=== PATIENT | male | born 2000 | race African-American/Black ===

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

== ENCOUNTER 2022-10-05 21:05 | Emergency (ER) | payer OTHER ==
--- OUTSIDE RECORDS SUMMARY | 2022-10-05 21:13 | XMS REPORT | Continuity of Care Document ---
:2000 Author Organization [facility] t Address [address] [facility] [place] [address] Care Team Providers Name Role Phone Fadi Ang MD Primary Care Physician Nils Tucker Attending Clinician Unknown, Attending Attending Clinician Unavailable NILS FIGUEROA Attending Clinician Unavailable Pob, [facility] Attending Clinician Unavailable Fadi Ang MD Attending Clinician FADI ANG Attending Clinician Unavailable Doctor Unassigned, [place] Attending Clinician Unavailable Amalia Goode MD Attending Clinician Kina Pineda RN Attending Clinician Unavailable Only, [facility] Attending Clinician Unavailable Emilia Manley Attending Clinician EMILIA ANTON Attending Clinician Unavailable Provider, [facility] Attending Clinician Unavailable Zahira Anne Attending Clinician ZAHIRA ROSSI Attending Clinician Unavailable Sammy Whitman MD Attending Clinician SAMMY WHITMAN Attending Clinician Unavailable SAMMY WHITMAN Attending Clinician Unavailable UNKNOWN, ATTENDING Attending Clinician Unavailable EVA MCCLAIN Attending Clinician Unavailable Sandra Ovalles MD Attending Clinician Ronal ODEstefany Attending Clinician Jayden Valles Attending Clinician Elyse Dean Attending Clinician Kami OWENS, Luann Attending Clinician John Rowell MD Attending Clinician FADI ANG Admitting Clinician Unavailable Payers Payer Name Policy Type Policy Number Effective Date Expiration Date [place] [facility] [id number] 2014 [facility] MEDICAID 00:00:00 [place] [facility] [id number] 2020 HEALTH 00:00:00 Problems Condition Condition Condition Status Onset Resolution Last Treating Co mments Source Name Details Category Date Date Treatment Clinician Date No known No known Disease Unive rs active active ity of problems problems [facility] Allergies, Adverse Reactions, Alerts Allergy Allergy Status Severity Reaction(s) Onset Inactive Treating Comm ents Source Name Type Date Date Clinician NO KNOWN Drug Active Univers ALLERGIE Class ity of S [facility] Social History Social Habit Start Date Stop Date Quantity Comments Source Exposure to 2022-07-27 2022-08-06 Not sure [facility]-CoV-2 00:00:00 16:34:00 [facility] (event) [place] Alcohol intake 2022-01-26 2022-01-26 [facility] of 00:00:00 00:00:00 non-drinker [facility] (finding) [place] Tobacco use and 2022-01-26 2022-01-26 Smokeless tobacco Un iversity of exposure 00:00:00 00:00:00 non-user [facility] Sex Assigned At [birth year] Universit y of 00:00:00 00:00:00 [facility] Smoking Status Start Date Stop Date Source Never smoked tobacco [facility] Medications Ordered Filled Start Stop Current Ordering Indication Dosage Frequency Signature Comments Components Source Medication Medication Date Date Medication? Clinician (SIG) Name Name ondansetron 2022- Yes [id number] 4mg Take 1 [facility] 4 mg 3-30 04-05 tablet by ity of disintegrat [place] :[place] every 8 Medica l (eight) Branch hours as needed for Nausea and Vomiting (N/V) for up to 5 days. ondansetron 2022- Yes [id number] 4mg Take 1 Univers 4 mg 3-30 04-05 tablet by ity of disintegrat 00:00: 04:[place] :00 every 8 Medica l (eight) Branch hours as needed for Nausea and Vomiting (N/V) for up to 5 days. bromphenira 2021-0 Yes [id number] 5mL Take 5 mL Univers mine-pseudo 9-19 by mouth 4 it y of ephedrine-D 00:00: (four[place] (BROMFED 00 times Medical DM) 2-30-10 daily as Bran ch mg/5 mL needed for syrup Congestion /Allergies . ondansetron 2021-0 Yes [id number] 4mg Take 1 Univers 4 mg 9-19 tablet by ity of disintegrat 00:00: mouth [place] ing tablet 00 every 8 Medica l (eight) Branch hours as needed for Nausea and Vomiting (N/V). albuterol 2021-0 Yes [id number] 2{puff} Inhale 2 Univers 90 9-19 Puffs ity of mcg/actuati 00:00: every 6 [place] as on inhaler 00 (six) Medical hours as Branch needed for Shortness of Breath. bromphenira 2021-0 Yes [id number] 5mL Take 5 mL [facility] mine-pseudo 9-19 by mouth 4 it y of ephedrine-D 00:00: (four[place] (BROMFED 00 times Medical DM) 2-30-10 daily as Bran ch mg/5 mL needed for syrup Congestion /Allergies . ondansetron 2021-0 Yes [id number] 4mg Take 1 Univers 4 mg 9-19 tablet by ity of disintegrat 00:00: mouth [place] ing tablet 00 every 8 Medica l (eight) Branch hours as needed for Nausea and Vomiting (N/V). albuterol 2021-0 Yes [id number] 2{puff} Inhale 2 Univers 90 9-19 Puffs ity of mcg/actuati 00:00: every 6 [place] as on inhaler 00 (six) Medical hours as Branch needed for Shortness of Breath. bromphenira 2021-0 Yes [id number] 5mL Take 5 mL Univers mine-pseudo 9-19 by mouth 4 it y of ephedrine-D 00:00: (four[place] (BROMFED 00 times Medical DM) 2-30-10 daily as Bran ch mg/5 mL needed for syrup Congestion /Allergies . ondansetron 2021-0 Yes [id number] 4mg Take 1 Univers 4 mg 9-19 tablet by ity of disintegrat 00:00: mouth [place] ing tablet 00 every 8 Medica l (eight) Branch hours as needed for Nausea and Vomiting (N/V). albuterol 2021-0 Yes [id number] 2{puff} Inhale 2 Univers 90 9-19 Puffs ity of mcg/actuati 00:00: every 6 [place] as on inhaler 00 (six) Medical hours as Branch needed for Shortness of Breath. bromphenira 2021-0 Yes [id number] 5mL Take 5 mL [facility] mine-pseudo 9-19 by mouth 4 it y of ephedrine-D 00:00: (four[place] (BROMFED 00 times Medical DM) 2-30-10 daily as Bran ch mg/5 mL needed for syrup Congestion /Allergies . ondansetron 0 Yes [id number] 4mg Take 1 Univers 4 mg 9-19 tablet by ity of disintegrat 00:00: mouth [place] ing tablet 00 every 8 Medica l (eight) Branch hours as needed for Nausea and Vomiting (N/V). albuterol 0 Yes [id number] 2{puff} Inhale 2 Univers 90 9-19 Puffs ity of mcg/actuati 00:00: every 6 [place] as on inhaler 00 (six) Medical hours as Branch needed for Shortness of Breath. bromphenira 0 Yes [id number] 5mL Take 5 mL Univers mine-pseudo 9-19 by mouth 4 it y of ephedrine-D 00:00: (four[place] (BROMFED 00 times Medical DM) 2-30-10 daily as Bran ch mg/5 mL needed for syrup Congestion /Allergies . ondansetron 2021-0 Yes [id number] 4mg Take 1 Univers 4 mg 9-19 tablet by ity of disintegrat 00:00: mouth [place] ing tablet 00 every 8 Medica l (eight) Branch hours as needed for Nausea and Vomiting (N/V). albuterol 2021-0 Yes [id number] 2{puff} Inhale 2 Univers 90 9-19 Puffs ity of mcg/actuati 00:00: every 6 [place] as on inhaler 00 (six) Medical hours as Branch needed for Shortness of Breath. bromphenira 2021-0 Yes [id number] 5mL Take 5 mL Univers mine-pseudo 9-19 by mouth 4 it y of ephedrine-D 00:00: (four[place] (BROMFED 00 times Medical DM) 2-30-10 daily as Bran ch mg/5 mL needed for syrup Congestion /Allergies . ondansetron 2021-0 Yes [id number] 4mg Take 1 Univers 4 mg 9-19 tablet by ity of disintegrat 00:00: mouth [place] ing tablet 00 every 8 Medica l (eight) Branch hours as needed for Nausea and Vomiting (N/V). albuterol 2021-0 Yes [id number] 2{puff} Inhale 2 Univers 90 9-19 Puffs ity of mcg/actuati 00:00: every 6 [place] as on inhaler 00 (six) Medical hours as Branch needed for Shortness of Breath. bromphenira 2021-0 Yes [id number] 5mL Take 5 mL Univers mine-pseudo 9-19 by mouth 4 it y of ephedrine-D 00:00: (four[place] (BROMFED 00 times Medical DM) 2-30-10 daily as Bran ch mg/5 mL needed for syrup Congestion /Allergies . ondansetron 0 Yes [id number] 4mg Take 1 Univers 4 mg 9-19 tablet by ity of disintegrat 00:00: mouth [place] ing tablet 00 every 8 Medica l (eight) Branch hours as needed for Nausea and Vomiting (N/V). albuterol 2021-0 Yes [id number] 2{puff} Inhale 2 Univers 90 9-19 Puffs ity of mcg/actuati 00:00: every 6 [place] as on inhaler 00 (six) Medical hours as Branch needed for Shortness of Breath. amoxicillin 2021-0 202- No [id number] 1000mg Take 2 Univers 500 mg 5-23 06-03 tablets by ity of tablet 00:00: 04:59 mouth [place] 00 :00 daily for Medical 10 days. Branch FLUoxetine 2020-0 Yes 20mg Take 20 mg U nivers 20 mg 9-27 by mouth. ity of capsule 00:00: [place] 00 Medical Branch FLUoxetine 2020-0 Yes 20mg Take 20 mg U nivers 20 mg 9-27 by mouth. ity of capsule 00:00: [facility] FLUoxetine 2021-0 Yes 20mg Take 20 mg U nivers 20 mg 9-27 by mouth. ity of capsule 00:00: [facility] FLUoxetine 202-0 Yes 20mg Take 20 mg U nivers 20 mg 9-27 by mouth. ity of capsule 00:00: [facility] FLUoxetine 202-0 Yes 20mg Take 20 mg U nivers 20 mg 9-27 by mouth. ity of capsule 00:00: [facility] FLUoxetine 202-0 Yes 20mg Take 20 mg U nivers 20 mg 9-27 by mouth. ity of capsule 00:00: [facility] FLUoxetine 202-0 Yes 20mg Take 20 mg U nivers 20 mg 9-27 by mouth. ity of capsule 00:00: [facility] FLUoxetine 202-0 Yes 20mg Take 20 mg U nivers 20 mg 9-27 by mouth. ity of capsule 00:00: [facility] FLUoxetine 202-0 Yes 20mg Take 20 mg U nivers 20 mg 9-27 by mouth. ity of capsule 00:00: [facility] FLUoxetine 202-0 Yes 20mg Take 20 mg U nivers 20 mg 9-27 by mouth. ity of capsule 00:00: [facility] FLUoxetine 202-0 Yes 20mg Take 20 mg U nivers 20 mg 9-27 by mouth. ity of capsule 00:00: [facility] FLUoxetine 202-0 Yes 20mg Take 20 mg U nivers 20 mg 9-27 by mouth. ity of capsule 00:00: [facility] FLUoxetine 2021-0 Yes 20mg Take 20 mg U nivers 20 mg 9-27 by mouth. ity of capsule 00:00: [facility] FLUoxetine 2021-0 Yes 20mg Take 20 mg U nivers 20 mg 9-27 by mouth. ity of capsule 00:00: [address] FLUoxetine 2021-0 Yes 20mg Take 20 mg U nivers 20 mg 9-27 by mouth. ity of capsule 00:00: [address] FLUoxetine 2021-0 Yes 20mg Take 20 mg U nivers 20 mg 9-27 by mouth. ity of capsule 00:00: [place] 00 Medical Branch FLUoxetine 2020-0 Yes 20mg Take 20 mg U nivers 20 mg 9-27 by mouth. ity of capsule 00:00: Medical Branch FLUoxetine 2020-0 Yes 20mg Take 20 mg U nivers 20 mg 9-27 by mouth. ity of capsule 00:00: Medical Branch ondansetron 0 Yes [id number] 4mg Take 1 Univers 4 mg 8-22 tablet by ity of disintegrat 00:00: mouth [place] ing tablet 00 every 8 Medica l (eight) Branch hours as needed for Nausea and Vomiting (N/V). ondansetron Yes [id number] 4mg Take 1 Univers 4 mg 8-22 tablet by ity of disintegrat 00:00: mouth [place] ing tablet 00 every 8 Medica l (eight) Branch hours as needed for Nausea and Vomiting (N/V). ondansetron Yes [id number] 4mg Take 1 Univers 4 mg 8-22 tablet by ity of disintegrat 00:00: mouth [place] ing tablet 00 every 8 Medica l (eight) Branch hours as needed for Nausea and Vomiting (N/V). ondansetron 0 Yes [id number] 4mg Take 1 Univers 4 mg 8-22 tablet by ity of disintegrat 00:00: mouth [place] ing tablet 00 every 8 Medica l (eight) Branch hours as needed for Nausea and Vomiting (N/V). ondansetron 0 Yes [id number] 4mg Take 1 Univers 4 mg 8-22 tablet by ity of disintegrat 00:00: mouth [place] ing tablet 00 every 8 Medica l (eight) Branch hours as needed for Nausea and Vomiting (N/V). ondansetron Yes [id number] 4mg Take 1 Univers 4 mg 8-22 tablet by ity of disintegrat 00:00: mouth [place] ing tablet 00 every 8 Medica l (eight) Branch hours as needed for Nausea and Vomiting (N/V). ondansetron 2020-0 Yes [id number] 4mg Take 1 Univers 4 mg 8-22 tablet by ity of disintegrat 00:00: mouth [place] ing tablet 00 every 8 Medica l (eight) Branch hours as needed for Nausea and Vomiting (N/V). ondansetron 2020-0 Yes [id number] 4mg Take 1 Univers 4 mg 8-22 tablet by ity of disintegrat 00:00: mouth [place] ing tablet 00 every 8 Medica l (eight) Branch hours as needed for Nausea and Vomiting (N/V). ondansetron 2020-0 Yes [id number] 4mg Take 1 Univers 4 mg 8-22 tablet by ity of disintegrat 00:00: mouth [place] ing tablet 00 every 8 Medica l (eight) Branch hours as needed for Nausea and Vomiting (N/V). ondansetron 0 Yes [id number] 4mg Take 1 Univers 4 mg 8-22 tablet by ity of disintegrat 00:00: mouth [place] ing tablet 00 every 8 Medica l (eight) Branch hours as needed for Nausea and Vomiting (N/V). ondansetron 2020-0 Yes [id number] 4mg Take 1 Univers 4 mg 8-22 tablet by ity of disintegrat 00:00: mouth [place] ing tablet 00 every 8 Medica l (eight) Branch hours as needed for Nausea and Vomiting (N/V). ondansetron 0 Yes [id number] 4mg Take 1 Univers 4 mg 8-22 tablet by ity of disintegrat 00:00: mouth [place] ing tablet 00 every 8 Medica l (eight) Branch hours as needed for Nausea and Vomiting (N/V). ondansetron 0 Yes [id number] 4mg Take 1 Univers 4 mg 8-22 tablet by ity of disintegrat 00:00: mouth [place] ing tablet 00 every 8 Medica l (eight) Branch hours as needed for Nausea and Vomiting (N/V). ondansetron 2020-0 Yes [id number] 4mg Take 1 Univers 4 mg 8-22 tablet by ity of disintegrat 00:00: mouth [place] ing tablet 00 every 8 Medica l (eight) Branch hours as needed for Nausea and Vomiting (N/V). ondansetron 2020-0 Yes [id number] 4mg Take 1 Univers 4 mg 8-22 tablet by ity of disintegrat 00:00: mouth [place] ing tablet 00 every 8 Medica l (eight) Branch hours as needed for Nausea and Vomiting (N/V). ondansetron 2020-0 Yes [id number] 4mg Take 1 Univers 4 mg 8-22 tablet by ity of disintegrat 00:00: mouth [place] ing tablet 00 every 8 Medica l (eight) Branch hours as needed for Nausea and Vomiting (N/V). ondansetron 0 Yes [id number] 4mg Take 1 Univers 4 mg 8-22 tablet by ity of disintegrat 00:00: mouth [place] ing tablet 00 every 8 Medica l (eight) Branch hours as needed for Nausea and Vomiting (N/V). ondansetron 0 Yes [id number] 4mg Take 1 Univers 4 mg 8-22 tablet by ity of disintegrat 00:00: mouth [place] ing tablet 00 every 8 Medica l (eight) Branch hours as needed for Nausea and Vomiting (N/V). bromphenira Yes [id number] 5mL Take 5 mL Univers mine-pseudo 8-20 by mouth 4 it y of ephedrine-D 00:00: (four[place] (BROMFED 00 times Medical DM) 2-30-10 daily as Bran ch mg/5 mL needed for syrup Congestion /Allergies or Cough. budesonide- Yes [id number] 2{puff} Inhale 2 Univers formoteroL 8-20 Puffs 2 ity of 80-4.5 00:00: (two) [place] mcg/actuati 00 times Medical on inhaler daily. Branch bromphenira Yes [id number] 5mL Take 5 mL Univers mine-pseudo 8-20 by mouth 4 it y of ephedrine-D 00:00: (four) [place] (BROMFED 00 times Medical DM) 2-30-10 daily as Bran ch mg/5 mL needed for syrup Congestion /Allergies or Cough. budesonide- Yes [id number] 2{puff} Inhale 2 Univers formoteroL 8-20 Puffs 2 ity of 80-4.5 00:00: (two) [place] mcg/actuati 00 times Medical on inhaler daily. Branch bromphenira Yes [id number] 5mL Take 5 mL Univers mine-pseudo 8-20 by mouth 4 it y of ephedrine-D 00:00: (four) [place] (BROMFED 00 times Medical DM) 2-30-10 daily as Bran ch mg/5 mL needed for syrup Congestion /Allergies or Cough. budesonide- Yes [id number] 2{puff} Inhale 2 Univers formoteroL 8-20 Puffs 2 ity of 80-4.5 00:00: (two) [place] mcg/actuati 00 times Medical on inhaler daily. Branch bromphenira Yes [id number] 5mL Take 5 mL Univers mine-pseudo 8-20 by mouth 4 it y of ephedrine-D 00:00: (four) [place] (BROMFED 00 times Medical DM) 2-30-10 daily as Bran ch mg/5 mL needed for syrup Congestion /Allergies or Cough. budesonide- Yes [id number] 2{puff} Inhale 2 Univers formoteroL 8-20 Puffs 2 ity of 80-4.5 00:00: (two) [place] mcg/actuati 00 times Medical on inhaler daily. Branch bromphenira Yes [id number] 5mL Take 5 mL Univers mine-pseudo 8-20 by mouth 4 it y of ephedrine-D 00:00: (four) [place] (BROMFED 00 times Medical DM) 2-30-10 daily as Bran ch mg/5 mL needed for syrup Congestion /Allergies or Cough. budesonide- Yes [id number] 2{puff} Inhale 2 Univers formoteroL 8-20 Puffs 2 ity of 80-4.5 00:00: (two) [place] mcg/actuati 00 times Medical on inhaler daily. Branch bromphenira Yes [id number] 5mL Take 5 mL Univers mine-pseudo 8-20 by mouth 4 it y of ephedrine-D 00:00: (four) [place] (BROMFED 00 times Medical DM) 2-30-10 daily as Bran ch mg/5 mL needed for syrup Congestion /Allergies or Cough. budesonide- Yes [id number] 2{puff} Inhale 2 Univers formoteroL 8-20 Puffs 2 ity of 80-4.5 00:00: (two) [place] mcg/actuati 00 times Medical on inhaler daily. Branch bromphenira Yes [id number] 5mL Take 5 mL Univers mine-pseudo 8-20 by mouth 4 it y of ephedrine-D 00:00: (four) [place] (BROMFED 00 times Medical DM) 2-30-10 daily as Bran ch mg/5 mL needed for syrup Congestion /Allergies or Cough. budesonide- Yes [id number] 2{puff} Inhale 2 Univers formoteroL 8-20 Puffs 2 ity of 80-4.5 00:00: (two) [place] mcg/actuati 00 times Medical on inhaler daily. Branch bromphenira Yes [id number] 5mL Take 5 mL Univers mine-pseudo 8-20 by mouth 4 it y of ephedrine-D 00:00: (four) [place] (BROMFED 00 times Medical DM) 2-30-10 daily as Bran ch mg/5 mL needed for syrup Congestion /Allergies or Cough. budesonide- Yes [id number] 2{puff} Inhale 2 Univers formoteroL 8-20 Puffs 2 ity of 80-4.5 00:00: (two) [place] mcg/actuati 00 times Medical on inhaler daily. Branch bromphenira Yes [id number] 5mL Take 5 mL Univers mine-pseudo 8-20 by mouth 4 it y of ephedrine-D 00:00: (four) [place] (BROMFED 00 times Medical DM) 2-30-10 daily as Bran ch mg/5 mL needed for syrup Congestion /Allergies or Cough. budesonide- Yes [id number] 2{puff} Inhale 2 Univers formoteroL 8-20 Puffs 2 ity of 80-4.5 00:00: (two) [place] mcg/actuati 00 times Medical on inhaler daily. Branch budesonide- Yes [id number] 2{puff} Inhale 2 Univers formoteroL 8-20 Puffs 2 ity of 80-4.5 00:00: (two) [place] mcg/actuati 00 times Medical on inhaler daily. Branch budesonide- Yes [id number] 2{puff} Inhale 2 Univers formoteroL 8-20 Puffs 2 ity of 80-4.5 00:00: (two) [place] mcg/actuati 00 times Medical on inhaler daily. Branch budesonide- Yes [id number] 2{puff} Inhale 2 Univers formoteroL 8-20 Puffs 2 ity of 80-4.5 00:00: (two) [place] mcg/actuati 00 times Medical on inhaler daily. Branch budesonide- Yes [id number] 2{puff} Inhale 2 Univers formoteroL 8-20 Puffs 2 ity of 80-4.5 00:00: (two) [place] mcg/actuati 00 times Medical on inhaler daily. Branch budesonide- Yes [id number] 2{puff} Inhale 2 Univers formoteroL 8-20 Puffs 2 ity of 80-4.5 00:00: (two) [place] mcg/actuati 00 times Medical on inhaler daily. Branch budesonide- Yes [id number] 2{puff} Inhale 2 Univers formoteroL 8-20 Puffs 2 ity of 80-4.5 00:00: (two) [place] mcg/actuati 00 times Medical on inhaler daily. Branch budesonide- Yes [id number] 2{puff} Inhale 2 Univers formoteroL 8-20 Puffs 2 ity of 80-4.5 00:00: (two) [place] mcg/actuati 00 times Medical on inhaler daily. [place] bromphenira Yes [id number] 5mL Take 5 mL Univers mine-pseudo 8-20 by mouth 4 it y of ephedrine-D 00:00: (four) [place] (BROMFED 00 times Medical DM) 2-30-10 daily as Bran ch mg/5 mL needed for syrup Congestion /Allergies or Cough. budesonide- Yes [id number] 2{puff} Inhale 2 Univers formoteroL 8-20 Puffs 2 ity of 80-4.5 00:00: (two) [place] mcg/actuati 00 times Medical on inhaler daily. Branch bromphenira Yes [id number] 5mL Take 5 mL Univers mine-pseudo 8-20 by mouth 4 it y of ephedrine-D 00:00: (four) [place] (BROMFED 00 times Medical DM) 2-30-10 daily as Bran ch mg/5 mL needed for syrup Congestion /Allergies or Cough. budesonide- Yes [id number] 2{puff} Inhale 2 Univers formoteroL 8-20 Puffs 2 ity of 80-4.5 00:00: (two) [place] mcg/actuati 00 times Medical on inhaler daily. Branch bromphenira 2021- No [id number] 5mL Take 5 mL Univers mine-pseudo 8-20 09-19 by mouth 4 i ty of ephedrine-D 00:00: 00:00 (four) [place] as M (BROMFED 00 :00 times Medical DM) 2-30-10 daily as Bran ch mg/5 mL needed for syrup Congestion /Allergies or Cough. busPIRone Yes Univers 15 mg 5-06 ity of tablet 00:00: [facility] busPIRone Yes Univers 15 mg 5-06 ity of tablet 00:00: [address] busPIRone Yes Univers 15 mg 5-06 ity of tablet 00:00: [facility] busPIRone Yes Univers 15 mg 5-06 ity of tablet 00:00: [address] busPIRone Yes Univers 15 mg 5-06 ity of tablet 00:00: [facility] busPIRone Yes Univers 15 mg 5-06 ity of tablet 00:00: [address] busPIRone Yes Univers 15 mg 5-06 ity of tablet 00:00: [facility] busPIRone Yes Univers 15 mg 5-06 ity of tablet 00:00: [facility] busPIRone Yes Univers 15 mg 5-06 ity of tablet 00:00: [address] busPIRone Yes Univers 15 mg 5-06 ity of tablet 00:00: [facility] busPIRone Yes Univers 15 mg 5-06 ity of tablet 00:00: [address] busPIRone Yes Univers 15 mg 5-06 ity of tablet 00:00: [address] busPIRone Yes Univers 15 mg 5-06 ity of tablet 00:00: [place] 00 Medical Branch busPIRone 0 Yes Univers 15 mg 5-06 ity of tablet 00:00: Medical Branch busPIRone 0 Yes Univers 15 mg 5-06 ity of tablet 00:00: Medical Branch busPIRone 0 Yes Univers 15 mg 5-06 ity of tablet 00:00: Medical Branch busPIRone 0 Yes Univers 15 mg 5-06 ity of tablet 00:00: Medical Branch busPIRone 0 Yes Univers 15 mg 5-06 ity of tablet 00:00: Medical Branch fluoxetine Yes Take by Univ ers HCl 9-08 mouth. ity of (FLUOXETINE 15:04: [place] ORAL) Medical Branch fluoxetine Yes Take by Univ ers HCl 9-08 mouth. ity of (FLUOXETINE 15:04: [place] ORAL) [address] [place] [address] Branch fluoxetine Yes Take by Univ ers HCl 9-08 mouth. ity of (FLUOXETINE 15:04: [place] ORAL) Medical Branch fluoxetine Yes Take by Univ ers HCl 9-08 mouth. ity of (FLUOXETINE 15:04: [place] ORAL) [address] [place] [address] Branch fluoxetine Yes Take by Univ ers HCl 9-08 mouth. ity of (FLUOXETINE 15:04: [place] ORAL) Medical Branch fluoxetine Yes Take by Univ ers HCl 9-08 mouth. ity of (FLUOXETINE 15:04: [place] ORAL) [address] [place] [address] Branch fluoxetine Yes Take by Univ ers HCl 9-08 mouth. ity of (FLUOXETINE 15:04: [place] ORAL) Medical Branch fluoxetine 2018- Yes Take by Univ ers HCl 9-08 mouth. ity of (FLUOXETINE 15:04: [place] ORAL) Medical Branch fluoxetine 2018- Yes Take by Univ ers HCl 9-08 mouth. ity of (FLUOXETINE 15:04: [place] ORAL) Medical Branch fluoxetine 2019-0 Yes Take by Univ ers HCl 9-08 mouth. ity of (FLUOXETINE 15:04: [place] ORAL) [address] [place] [address] Branch fluoxetine 2018-0 Yes Take by Univ ers HCl 9-08 mouth. ity of (FLUOXETINE 15:04: [place] ORAL) Medical Branch fluoxetine 2018-0 Yes Take by Univ ers HCl 9-08 mouth. ity of (FLUOXETINE 15:04: [place] ORAL) Medical Branch fluoxetine 2019-0 Yes Take by Univ ers HCl 9-08 mouth. ity of (FLUOXETINE 15:04: [place] ORAL) 34 Medical Branch fluoxetine 2019-0 Yes Take by Univ ers HCl 9-08 mouth. ity of (FLUOXETINE 15:04: [place] ORAL) 34 Medical Branch fluoxetine 2018-0 Yes Take by Univ ers HCl 9-08 mouth. ity of (FLUOXETINE 15:04: [place] ORAL) 34 Medical Branch fluoxetine 2019-0 Yes Take by Univ ers HCl 9-08 mouth. ity of (FLUOXETINE 15:04: [place] ORAL) 34 Medical Branch fluoxetine 2018-0 Yes Take by Univ ers HCl 9-08 mouth. ity of (FLUOXETINE 15:04: [place] ORAL) 34 Medical Branch fluoxetine 2019-0 Yes Take by Univ ers HCl 9-08 mouth. ity of (FLUOXETINE 15:04: [place] ORAL) 34 Medical Branch hydrOXYzine Yes [id number] 1-2 tabs Univers 25 mg 9-08 Every ity of tablet 00:00: 3-6hr as [place] 00 needed for Medical nausea Branch dyspnea. hydrOXYzine Yes [id number] 1-2 tabs Univers 25 mg 9-08 Every ity of tablet 00:00: 3-6hr as [place] 00 needed for Medical nausea Branch dyspnea. hydrOXYzine Yes [id number] 1-2 tabs Univers 25 mg 9-08 Every ity of tablet 00:00: 3-6hr as [place] 00 needed for Medical nausea Branch dyspnea. hydrOXYzine Yes [id number] 1-2 tabs Univers 25 mg 9-08 Every ity of tablet 00:00: 3-6hr as [place] 00 needed for Medical nausea Branch dyspnea. hydrOXYzine Yes [id number] 1-2 tabs Univers 25 mg 9-08 Every ity of tablet 00:00: 3-6hr as [place] 00 needed for Medical nausea Branch dyspnea. hydrOXYzine Yes [id number] 1-2 tabs Univers 25 mg 9-08 Every ity of tablet 00:00: 3-6hr as [place] 00 needed for Medical nausea Branch dyspnea. hydrOXYzine Yes [id number] 1-2 tabs Univers 25 mg 9-08 Every ity of tablet 00:00: 3-6hr as [place] 00 needed for Medical nausea Branch dyspnea. hydrOXYzine Yes [id number] 1-2 tabs [facility] 25 mg 9-08 Every ity of tablet 00:00: 3-6hr as [place] 00 needed for Medical nausea Branch dyspnea. hydrOXYzine Yes [id number] 1-2 tabs [facility] 25 mg 9-08 Every ity of tablet 00:00: 3-6hr as [place] 00 needed for Medical nausea Branch dyspnea. hydrOXYzine Yes [id number] 1-2 tabs [facility] 25 mg 9-08 Every ity of tablet 00:00: 3-6hr as [place] 00 needed for Medical nausea Branch dyspnea. hydrOXYzine Yes [id number] 1-2 tabs [facility] 25 mg 9-08 Every ity of tablet 00:00: 3-6hr as [place] 00 needed for Medical nausea Branch dyspnea. hydrOXYzine 2021- No [id number] 1-2 tabs [facility] 25 mg 9-08 09-19 Every ity of tablet 00:00: 00:00 3-6hr as [place] 00 :00 needed for Medical nausea Branch dyspnea. OLANZapine Yes [id number] 5mg Take 1 U nivers ZYDIS 5 mg 7-13 tablet by ity of disintegrat 00:00: mouth [place] ing tablet 00 daily. Medical Branch OLANZapine Yes [id number] 5mg Take 1 U nivers ZYDIS 5 mg 7-13 tablet by ity of disintegrat 00:00: mouth [place] ing tablet 00 daily. Medical Branch OLANZapine 2018- Yes [id number] 5mg Take 1 U nivers ZYDIS 5 mg 7-13 tablet by ity of disintegrat 00:00: mouth [place] ing tablet 00 daily. [facility] Branch OLANZapine 2019- Yes [id number] 5mg Take 1 U nivers ZYDIS 5 mg 7-13 tablet by ity of disintegrat 00:00: mouth [place] ing tablet 00 daily. [facility] Branch OLANZapine 2019- Yes [id number] 5mg Take 1 U nivers ZYDIS 5 mg 7-13 tablet by ity of disintegrat 00:00: mouth [place] ing tablet 00 daily. [facility] Branch OLANZapine 2018- Yes [id number] 5mg Take 1 U nivers ZYDIS 5 mg 7-13 tablet by ity of disintegrat 00:00: mouth [place] ing tablet 00 daily. [facility] Branch OLANZapine 2019-0 Yes [id number] 5mg Take 1 U nivers ZYDIS 5 mg 7-13 tablet by ity of disintegrat 00:00: mouth [place] ing tablet 00 daily. [facility] OLANZapine 2019-0 Yes [id number] 5mg Take 1 U nivers ZYDIS 5 mg 7-13 tablet by ity of disintegrat 00:00: mouth [place] ing tablet 00 daily. [facility] Branch OLANZapine 2019-0 Yes [id number] 5mg Take 1 U nivers ZYDIS 5 mg 7-13 tablet by ity of disintegrat 00:00: mouth [place] ing tablet 00 daily. [facility] Branch OLANZapine 2019-0 Yes [id number] 5mg Take 1 U nivers ZYDIS 5 mg 7-13 tablet by ity of disintegrat 00:00: mouth [place] ing tablet 00 daily. [facility] Branch OLANZapine 2019-0 Yes [id number] 5mg Take 1 U nivers ZYDIS 5 mg 7-13 tablet by ity of disintegrat 00:00: mouth [place] ing tablet 00 daily. [facility] Branch OLANZapine 2019-0 Yes [id number] 5mg Take 1 U nivers ZYDIS 5 mg 7-13 tablet by ity of disintegrat 00:00: mouth [place] ing tablet 00 daily. [facility] Branch OLANZapine 2019-0 Yes [id number] 5mg Take 1 U nivers ZYDIS 5 mg 7-13 tablet by ity of disintegrat 00:00: mouth [place] ing tablet 00 daily. [facility] Branch OLANZapine 2019-0 Yes [id number] 5mg Take 1 U nivers ZYDIS 5 mg 7-13 tablet by ity of disintegrat 00:00: mouth [place] ing tablet 00 daily. [facility] Branch OLANZapine 2019-0 Yes [id number] 5mg Take 1 U nivers ZYDIS 5 mg 7-13 tablet by ity of disintegrat 00:00: mouth [place] ing tablet 00 daily. Medical Branch OLANZapine 2019-0 Yes [id number] 5mg Take 1 U nivers ZYDIS 5 mg 7-13 tablet by ity of disintegrat 00:00: mouth [place] ing tablet 00 daily. Medical Branch OLANZapine 2019-0 Yes [id number] 5mg Take 1 U nivers ZYDIS 5 mg 7-13 tablet by ity of disintegrat 00:00: mouth [place] ing tablet 00 daily. Medical Branch OLANZapine 2019-0 Yes [id number] 5mg Take 1 U nivers ZYDIS 5 mg 7-13 tablet by ity of disintegrat 00:00: mouth [place] ing tablet 00 daily. Medical Branch albuterol Yes 2{puff} Inhale 2 U nivers 90 5-27 Puffs ity of mcg/actuati 00:00: every 4 [place] as on inhaler 00 (four) Medical hours as Branch needed for Wheezing or Shortness of Breath. albuterol 2017- Yes 2{puff} Inhale 2 U nivers 90 5-27 Puffs ity of mcg/actuati 00:00: every 4 [place] as on inhaler 00 (four) Medical hours as Branch needed for Wheezing or Shortness of Breath. albuterol Yes 2{puff} Inhale 2 U nivers 90 5-27 Puffs ity of mcg/actuati 00:00: every 4 [place] on inhaler 00 (four) Medical hours as Branch needed for Wheezing or Shortness of Breath. albuterol Yes 2{puff} Inhale 2 U nivers 90 5-27 Puffs ity of mcg/actuati 00:00: every 4 [place] on inhaler 00 (four) Medical hours as Branch needed for Wheezing or Shortness of Breath. albuterol Yes 2{puff} Inhale 2 U nivers 90 5-27 Puffs ity of mcg/actuati 00:00: every 4 [place] as on inhaler 00 (four) Medical hours as Branch needed for Wheezing or Shortness of Breath. albuterol Yes 2{puff} Inhale 2 U nivers 90 5-27 Puffs ity of mcg/actuati 00:00: every 4 [place] as on inhaler 00 (four) Medical hours as Branch needed for Wheezing or Shortness of Breath. albuterol 0 Yes 2{puff} Inhale 2 U nivers 90 5-27 Puffs ity of mcg/actuati 00:00: every 4 [place] on inhaler 00 (four) Medical hours as Branch needed for Wheezing or Shortness of Breath. albuterol 2017-0 Yes 2{puff} Inhale 2 U nivers 90 5-27 Puffs ity of mcg/actuati 00:00: every 4 [place] as on inhaler 00 (four) Medical hours as Branch needed for Wheezing or Shortness of Breath. albuterol 2018-0 Yes 2{puff} Inhale 2 U nivers 90 5-27 Puffs ity of mcg/actuati 00:00: every 4 [place] on inhaler 00 (four) Medical hours as Branch needed for Wheezing or Shortness of Breath. albuterol Yes 2{puff} Inhale 2 U nivers 90 5-27 Puffs ity of mcg/actuati 00:00: every 4 [place] on inhaler 00 (four) Medical hours as Branch needed for Wheezing or Shortness of Breath. albuterol Yes 2{puff} Inhale 2 U nivers 90 5-27 Puffs ity of mcg/actuati 00:00: every 4 [place] on inhaler 00 (four) Medical hours as Branch needed for Wheezing or Shortness of Breath. albuterol 2021- No 2{puff} Inhale 2 [facility] 90 5-27 09-19 Puffs ity of mcg/actuati 00:00: 00:00 every 4 [place] inhaler 00 :00 (four) Medical hours as Branch needed for Wheezing or Shortness of Breath. Immunizations Ordered Immunization Filled Immunization Date Status Commen ts Source Name Name Meningococcal 2018-02-18 Completed [facility] of Polysaccharide 00:00:00 [place] [facility] (groups A, C, Y and Branc h W-135) conjugate vaccine (MCV4P) Meningococcal B, OMV 2018-02-18 Completed Univ ersity of 00:00:00 [facility] HPV9 2018-02-18 Completed University of 00:00:00 [facility] Influenza Virus 2018-02-18 Completed Universit y of Vaccine Quad .5 mL IM 00:00:00 [place] [facility] Medical 6+ MO Branch Meningococcal 2018-02-18 Completed [facility] Polysaccharide 00:00:00 [place] [facility] (groups A, C, Y and Branc h W-135) conjugate vaccine (MCV4P) Meningococcal B, OMV 2018-02-18 Completed Univ ersity of 00:00:00 [facility] HPV9 2018-02-18 Completed University of 00:00:00 [facility] Influenza Virus 2018-02-18 Completed Universit y of Vaccine Quad .5 mL IM 00:00:00 [place] as Medical 6+ MO Branch Meningococcal 2018-02-18 Completed [facility] Polysaccharide 00:00:00 [place] [facility] (groups A, C, Y and Branc h W-135) conjugate vaccine (MCV4P) Meningococcal B, OMV 2018-02-18 Completed Univ ersity of 00:00:00 [facility] HPV9 2018-02-18 Completed University of 00:00:00 [facility] Influenza Virus 2018-02-18 Completed Universit y of Vaccine Quad .5 mL IM 00:00:00 [place] as Medical 6+ MO Branch Meningococcal 2018-02-18 Completed [facility] Polysaccharide 00:00:00 [place] [facility] (groups A, C, Y and Branc h W-135) conjugate vaccine (MCV4P) Meningococcal B, OMV 2018-02-18 Completed Univ ersity of 00:00:00 [facility] HPV9 2018-02-18 Completed University of 00:00:00 [facility] Influenza Virus 2018-02-18 Completed Universit y of Vaccine Quad .5 mL IM 00:00:00 [place] as Medical 6+ MO Branch Meningococcal 2018-02-18 Completed [facility] of Polysaccharide 00:00:00 [place] [facility] (groups A, C, Y and Branc h W-135) conjugate vaccine (MCV4P) Meningococcal B, OMV 2018-02-18 Completed Univ ersity of 00:00:00 [facility] HPV9 2018-02-18 Completed University of 00:00:00 [facility] Influenza Virus 2018-02-18 Completed Universit y of Vaccine Quad .5 mL IM 00:00:00 [place] as Medical 6+ MO Branch Meningococcal 2018-02-18 Completed [facility] of Polysaccharide 00:00:00 [place] [facility] (groups A, C, Y and Branc h W-135) conjugate vaccine (MCV4P) Meningococcal B, OMV 2018-02-18 Completed Univ ersity of 00:00:00 [facility] HPV9 2018-02-18 Completed University of 00:00:00 [facility] Influenza Virus 2018-02-18 Completed Universit y of Vaccine Quad .5 mL IM 00:00:00 [place] as Medical 6+ MO Branch Meningococcal 2018-02-18 Completed [facility] Polysaccharide 00:00:00 [place] [facility] (groups A, C, Y and Branc h W-135) conjugate vaccine (MCV4P) Meningococcal B, OMV 2018-02-18 Completed Univ ersity of 00:00:00 [facility] HPV9 2018-02-18 Completed University of 00:00:00 [facility] Influenza Virus 2018-02-18 Completed Universit y of Vaccine Quad .5 mL IM 00:00:00 [place] as Medical 6+ MO Branch Meningococcal 2018-02-18 Completed [facility] of Polysaccharide 00:00:00 [place] [facility] (groups A, C, Y and Branc h W-135) conjugate vaccine (MCV4P) Meningococcal B, OMV 2018-02-18 Completed Univ ersity of 00:00:00 [facility] HPV9 2018-02-18 Completed University of 00:00:00 [facility] Influenza Virus 2018-02-18 Completed Universit y of Vaccine Quad .5 mL IM 00:00:00 [place] as Medical 6+ MO Branch Meningococcal 2018-02-18 Completed [facility] of Polysaccharide 00:00:00 [place] [facility] (groups A, C, Y and Branc h W-135) conjugate vaccine (MCV4P) Meningococcal B, OMV 2018-02-18 Completed Univ ersity of 00:00:00 [facility] HPV9 2018-02-18 Completed University of 00:00:00 [facility] Influenza Virus 2018-02-18 Completed Universit y of Vaccine Quad .5 mL IM 00:00:00 [place] as Medical 6+ MO Branch Meningococcal 2018-02-18 Completed University of Polysaccharide 00:00:00 [place] [facility] (groups A, C, Y and Branc h W-135) conjugate vaccine (MCV4P) Meningococcal B, OMV 2018-02-18 Completed Univ ersity of 00:00:00 [facility] HPV9 2018-02-18 Completed University of 00:00:00 [facility] Influenza Virus 2018-02-18 Completed Universit y of Vaccine Quad .5 mL IM 00:00:00 [place] as Medical 6+ MO Branch Meningococcal 2018-02-18 Completed [facility] of Polysaccharide 00:00:00 [place] [facility] (groups A, C, Y and Branc h W-135) conjugate vaccine (MCV4P) Meningococcal B, OMV 2018-02-18 Completed Univ ersity of 00:00:00 [facility] HPV9 2018-02-18 Completed University of 00:00:00 [facility] Influenza Virus 2018-02-18 Completed Universit y of Vaccine Quad .5 mL IM 00:00:00 [place] as Medical 6+ MO Branch Meningococcal 2018-02-18 Completed [facility] of Polysaccharide 00:00:00 [place] [facility] (groups A, C, Y and Branc h W-135) conjugate vaccine (MCV4P) Meningococcal B, OMV 2018-02-18 Completed Univ ersity of 00:00:00 [facility] Branch HPV9 2018-02-18 Completed University of 00:00:00 [facility] Influenza Virus 2018-02-18 Completed Universit y of Vaccine Quad .5 mL IM 00:00:00 [place] as Medical 6+ MO Branch Meningococcal 2018-02-18 Completed [facility] of Polysaccharide 00:00:00 [place] [facility] (groups A, C, Y and Branc h W-135) conjugate vaccine (MCV4P) Meningococcal B, OMV 2018-02-18 Completed Univ ersity of 00:00:00 [facility] HPV9 2018-02-18 Completed University of 00:00:00 [facility] Influenza Virus 2018-02-18 Completed Universit y of Vaccine Quad .5 mL IM 00:00:00 [place] as Medical 6+ MO Branch Meningococcal 2018-02-18 Completed [facility] of Polysaccharide 00:00:00 [place] [facility] (groups A, C, Y and Branc h W-135) conjugate vaccine (MCV4P) Meningococcal B, OMV 2018-02-18 Completed Univ ersity of 00:00:00 [facility] HPV9 2018-02-18 Completed University of 00:00:00 [facility] Influenza Virus 2018-02-18 Completed Universit y of Vaccine Quad .5 mL IM 00:00:00 [place] as Medical 6+ MO Branch Meningococcal 2018-02-18 Completed [facility] of Polysaccharide 00:00:00 [place] [facility] (groups A, C, Y and Branc h W-135) conjugate vaccine (MCV4P) Meningococcal B, OMV 2018-02-18 Completed Univ ersity of 00:00:00 [facility] HPV9 2018-02-18 Completed University of 00:00:00 [facility] Influenza Virus 2018-02-18 Completed Universit y of Vaccine Quad .5 mL IM 00:00:00 [place] as Medical 6+ MO Branch Meningococcal 2018-02-18 Completed [facility] of Polysaccharide 00:00:00 [place] [facility] (groups A, C, Y and Branc h W-135) conjugate vaccine (MCV4P) Meningococcal B, OMV 2018-02-18 Completed Univ ersity of 00:00:00 [facility] HPV9 2018-02-18 Completed University of 00:00:00 [facility] Influenza Virus 2018-02-18 Completed Universit y of Vaccine Quad .5 mL IM 00:00:00 [place] as Medical 6+ MO Branch Meningococcal 2018-02-18 Completed [facility] of Polysaccharide 00:00:00 [place] [facility] (groups A, C, Y and Branc h W-135) conjugate vaccine (MCV4P) Meningococcal B, OMV 2018-02-18 Completed Univ ersity of 00:00:00 [facility] Branch HPV9 2018-02-18 Completed University of 00:00:00 [facility] Influenza Virus 2018-02-18 Completed Universit y of Vaccine Quad .5 mL IM 00:00:00 [place] as Medical 6+ MO Branch Meningococcal 2018-02-18 Completed [facility] of Polysaccharide 00:00:00 [place] [facility] (groups A, C, Y and Branc h W-135) conjugate vaccine (MCV4P) Meningococcal B, OMV 2018-02-18 Completed Univ ersity of 00:00:00 [facility] HPV9 2018-02-18 Completed University of 00:00:00 [facility] Influenza Virus 2018-02-18 Completed Universit y of Vaccine Quad .5 mL IM 00:00:00 [place] as Medical 6+ MO Branch HPV 2014-12-31 Completed University of 00:00:00 [facility] TDAP 2014-12-31 Completed University of 00:00:00 [facility] Meningococcal Vaccine 2014-12-31 Completed Uni versity of 00:00:00 [facility] HPV 2014-12-31 Completed University of 00:00:00 [facility] TDAP 2014-12-31 Completed University of 00:00:00 [facility] Meningococcal Vaccine 2014-12-31 Completed Uni versity of 00:00:00 [facility] HPV 2014-12-31 Completed University of 00:00:00 [facility] TDAP 2014-12-31 Completed University of 00:00:00 [facility] Meningococcal Vaccine 2014-12-31 Completed Uni versity of 00:00:00 [facility] HPV 2014-12-31 Completed University of 00:00:00 [facility] TDAP 2014-12-31 Completed University of 00:00:00 [facility] Meningococcal Vaccine 2014-12-31 Completed Uni versity of 00:00:00 [facility] HPV 2014-12-31 Completed University of 00:00:00 [place] [facility] TDAP 2014-12-31 Completed University of 00:00:00 [facility] Branch Meningococcal Vaccine 2014-12-31 Completed Uni versity of 00:00:00 [place] [facility] HPV 2014-12-31 Completed University of 00:00:00 [place] [facility] TDAP 2014-12-31 Completed University of 00:00:00 [facility] Branch Meningococcal Vaccine 2014-12-31 Completed Uni versity of 00:00:00 [place] [facility] HPV 2014-12-31 Completed University of 00:00:00 [place] [facility] TDAP 2014-12-31 Completed University of 00:00:00 [facility] Branch Meningococcal Vaccine 2014-12-31 Completed Uni versity of 00:00:00 [facility] Branch HPV 2014-12-31 Completed University of 00:00:00 [facility] Branch TDAP 2014-12-31 Completed University of 00:00:00 [facility] Branch Meningococcal Vaccine 2014-12-31 Completed Uni versity of 00:00:00 [facility] Branch HPV 2014-12-31 Completed University of 00:00:00 [place] [facility] TDAP 2014-12-31 Completed University of 00:00:00 [facility] Branch Meningococcal Vaccine 2014-12-31 Completed Uni versity of 00:00:00 [facility] Branch HPV 2014-12-31 Completed University of 00:00:00 [place] [facility] TDAP 2014-12-31 Completed University of 00:00:00 [facility] Branch Meningococcal Vaccine 2014-12-31 Completed Uni versity of 00:00:00 [facility] Branch HPV 2014-12-31 Completed University of 00:00:00 [facility] Branch TDAP 2014-12-31 Completed University of 00:00:00 [facility] Branch Meningococcal Vaccine 2014-12-31 Completed Uni versity of 00:00:00 [facility] Branch HPV 2014-12-31 Completed University of 00:00:00 [place] [facility] TDAP 2014-12-31 Completed University of 00:00:00 [place] [facility] Meningococcal Vaccine 2014-12-31 Completed Uni versity of 00:00:00 [place] [facility] HPV 2014-12-31 Completed University of 00:00:00 [place] [facility] TDAP 2014-12-31 Completed University of 00:00:00 [place] [facility] Meningococcal Vaccine 2014-12-31 Completed Uni versity of 00:00:00 [place] [facility] HPV 2014-12-31 Completed University of 00:00:00 [place] [facility] TDAP 2014-12-31 Completed University of 00:00:00 [facility] Branch Meningococcal Vaccine 2014-12-31 Completed Uni versity of 00:00:00 [facility] Branch HPV 2014-12-31 Completed University of 00:00:00 [facility] Branch TDAP 2014-12-31 Completed University of 00:00:00 [facility] Branch Meningococcal Vaccine 2014-12-31 Completed Uni versity of 00:00:00 [place] [facility] HPV 2014-12-31 Completed University of 00:00:00 [place] [facility] TDAP 2014-12-31 Completed University of 00:00:00 [facility] Branch Meningococcal Vaccine 2014-12-31 Completed Uni versity of 00:00:00 [facility] Branch HPV 2014-12-31 Completed University of 00:00:00 [facility] Branch TDAP 2014-12-31 Completed University of 00:00:00 [facility] Branch Meningococcal Vaccine 2014-12-31 Completed Uni versity of 00:00:00 [facility] Branch HPV 2014-12-31 Completed University of 00:00:00 [facility] Branch TDAP 2014-12-31 Completed University of 00:00:00 [facility] Meningococcal Vaccine 2014-12-31 Completed Uni versity of 00:00:00 [facility] Polio (IPV/OPV) 2008-06-21 Completed Universit y of 00:00:00 [facility] Polio (IPV/OPV) 2008-06-21 Completed Universit y of 00:00:00 [facility] Polio (IPV/OPV) 2008-06-21 Completed Universit y of 00:00:00 [facility] Branch Polio (IPV/OPV) 2008-06-21 Completed Universit y of 00:00:00 [facility] Polio (IPV/OPV) 2008-06-21 Completed Universit y of 00:00:00 [facility] Polio (IPV/OPV) 2008-06-21 Completed Universit y of 00:00:00 [facility] Polio (IPV/OPV) 2008-06-21 Completed Universit y of 00:00:00 [facility] Polio (IPV/OPV) 2008-06-21 Completed Universit y of 00:00:00 [facility] Polio (IPV/OPV) 2008-06-21 Completed Universit y of 00:00:00 [facility] Polio (IPV/OPV) 2008-06-21 Completed Universit y of 00:00:00 [facility] Polio (IPV/OPV) 2008-06-21 Completed Universit y of 00:00:00 [facility] Polio (IPV/OPV) 2008-06-21 Completed Universit y of 00:00:00 [facility] Polio (IPV/OPV) 2008-06-21 Completed Universit y of 00:00:00 [facility] Polio (IPV/OPV) 2008-06-21 Completed Universit y of 00:00:00 [facility] Polio (IPV/OPV) 2008-06-21 Completed Universit y of 00:00:00 [facility] Polio (IPV/OPV) 2008-06-21 Completed Universit y of 00:00:00 [facility] Polio (IPV/OPV) 2008-06-21 Completed Universit y of 00:00:00 [facility] Polio (IPV/OPV) 2008-06-21 Completed Universit y of 00:00:00 [facility] HEPATITIS A 2006-12-16 Completed University of 00:00:00 [facility] Varicella 2006-12-16 Completed University of (varivax)(chicken 00:00:00 [place] [facility] pox) Branch HEPATITIS A 2006-12-16 Completed University of 00:00:00 [facility] Varicella 2006-12-16 Completed University of (varivax)(chicken 00:00:00 [place] [facility] pox) Branch HEPATITIS A 2006-12-16 Completed University of 00:00:00 [facility] Varicella 2006-12-16 Completed University of (varivax)(chicken 00:00:00 [place] [facility] pox) Branch HEPATITIS A 2006-12-16 Completed University of 00:00:00 [facility] Varicella 2006-12-16 Completed University of (varivax)(chicken 00:00:00 [place] [facility] pox) Branch HEPATITIS A 2006-12-16 Completed University of 00:00:00 [facility] Varicella 2006-12-16 Completed University of (varivax)(chicken 00:00:00 [place] [facility] pox) Branch HEPATITIS A 2006-12-16 Completed University of 00:00:00 [facility] Varicella 2006-12-16 Completed University of (varivax)(chicken 00:00:00 [place] [facility] pox) Branch HEPATITIS A 2006-12-16 Completed [facility] of 00:00:00 [place] [facility] Varicella 2006-12-16 Completed University of (varivax)(chicken 00:00:00 [place] [facility] pox) Branch HEPATITIS A 2006-12-16 Completed University of 00:00:00 [place] [facility] Varicella 2006-12-16 Completed University of (varivax)(chicken 00:00:00 [place] [facility] pox) Branch HEPATITIS A 2006-12-16 Completed University of 00:00:00 [place] [facility] Varicella 2006-12-16 Completed University of (varivax)(chicken 00:00:00 [place] [facility] pox) Branch HEPATITIS A 2006-12-16 Completed University of 00:00:00 [facility] Varicella 2006-12-16 Completed University of (varivax)(chicken 00:00:00 [place] [facility] pox) Branch HEPATITIS A 2006-12-16 Completed University of 00:00:00 [facility] Varicella 2006-12-16 Completed University of (varivax)(chicken 00:00:00 [place] [facility] pox) Branch HEPATITIS A 2006-12-16 Completed University of 00:00:00 [facility] Varicella 2006-12-16 Completed University of (varivax)(chicken 00:00:00 [place] [facility] pox) Branch HEPATITIS A 2006-12-16 Completed University of 00:00:00 [facility] Varicella 2006-12-16 Completed University of (varivax)(chicken 00:00:00 [place] [facility] pox) Branch HEPATITIS A 2006-12-16 Completed University of 00:00:00 [facility] Varicella 2006-12-16 Completed University of (varivax)(chicken 00:00:00 [place] [facility] pox) Branch HEPATITIS A 2006-12-16 Completed University of 00:00:00 [facility] Varicella 2006-12-16 Completed University of (varivax)(chicken 00:00:00 [place] [facility] pox) Branch HEPATITIS A 2006-12-16 Completed University of 00:00:00 [facility] Varicella 2006-12-16 Completed University of (varivax)(chicken 00:00:00 [place] [facility] pox) Branch HEPATITIS A 2006-12-16 Completed University of 00:00:00 [facility] Varicella 2006-12-16 Completed University of (varivax)(chicken 00:00:00 [facility] edical pox) Branch HEPATITIS A 2006-12-16 Completed University of 00:00:00 [facility] Varicella 2006-12-16 Completed University of (varivax)(chicken 00:00:00 [place] [facility] pox) [facility] HEPATITIS A 2006-02-11 Completed University of 00:00:00 [facility] MMR 2006-02-11 Completed University of 00:00:00 [facility] Polio (IPV/OPV) 2006-02-11 Completed Universit y of 00:00:00 [facility] Pneumococcal 7 2006-02-11 Completed University of Conjugate, PCV7 00:00:00 [place] [facility] (Prevnar7) Branch DTAP 2006-02-11 Completed University of 00:00:00 [facility] HEPATITIS A 2006-02-11 Completed University of 00:00:00 [facility] MMR 2006-02-11 Completed University of 00:00:00 [facility] Polio (IPV/OPV) 2006-02-11 Completed Universit y of 00:00:00 [facility] Pneumococcal 7 2006-02-11 Completed University of Conjugate, PCV7 00:00:00 [place] [facility] (Prevnar7) Branch DTAP 2006-02-11 Completed University of 00:00:00 [facility] HEPATITIS A 2006-02-11 Completed University of 00:00:00 [facility] MMR 2006-02-11 Completed University of 00:00:00 [facility] Polio (IPV/OPV) 2006-02-11 Completed Universit y of 00:00:00 [facility] Pneumococcal 7 2006-02-11 Completed [facility] Conjugate, PCV7 00:00:00 [facility] (Prevnar7[facility] DTAP 2006-02-11 Completed [facility] of 00:00:00 [facility] HEPATITIS A 2006-02-11 Completed [facility] of 00:00:00 [facility] MMR 2006-02-11 Completed [facility] of 00:00:00 [facility] Polio (IPV/OPV) 2006-02-11 Completed [facility] 00:00:00 [facility] Pneumococcal 7 2006-02-11 Completed [facility] Conjugate, PCV7 00:00:00 [facility] (Prevnar7) [facility] DTAP 2006-02-11 Completed [facility] 00:00:00 [facility] HEPATITIS A 2006-02-11 Completed [facility] 00:00:00 [facility] MMR 2006-02-11 Completed [facility] 00:00:00 [facility] Polio (IPV/OPV) 2006-02-11 Completed [facility] 00:00:00 [facility] Pneumococcal 7 2006-02-11 Completed [facility] Conjugate, PCV7 00:00:00 [facility] (Prevnar7) [facility] DTAP 2006-02-11 Completed [facility] 00:00:00 [facility] HEPATITIS A 2006-02-11 Completed [facility] 00:00:00 [facility] MMR 2006-02-11 Completed [facility] 00:00:00 [facility] Polio (IPV/OPV) 2006-02-11 Completed [facility] 00:00:00 [facility] Pneumococcal 7 2006-02-11 Completed [facility] Conjugate, PCV7 00:00:00 [facility] (Prevnar7) [facility] DTAP 2006-02-11 Completed [facility] 00:00:00 [facility] HEPATITIS A 2006-02-11 Completed [facility] 00:00:00 [facility] MMR 2006-02-11 Completed [facility] 00:00:00 [facility] Polio (IPV/OPV) 2006-02-11 Completed [facility] 00:00:00 [facility] Pneumococcal 7 2006-02-11 Completed [facility] Conjugate, PCV7 00:00:00 [facility] (Prevnar7) [facility] DTAP 2006-02-11 Completed [facility] 00:00:00 [facility] HEPATITIS A 2006-02-11 Completed [facility] 00:00:00 [facility] MMR 2006-02-11 Completed [facility] 00:00:00 [facility] Polio (IPV/OPV) 2006-02-11 Completed [facility] 00:00:00 [facility] Pneumococcal 7 2006-02-11 Completed [facility] Conjugate, PCV7 00:00:00 [facility] (Prevnar7) [facility] DTAP 2006-02-11 Completed [facility] 00:00:00 [facility] HEPATITIS A 2006-02-11 Completed [facility] 00:00:00 [facility] MMR 2006-02-11 Completed [facility] 00:00:00 [facility] Polio (IPV/OPV) 2006-02-11 Completed [facility] 00:00:00 [facility] Pneumococcal 7 2006-02-11 Completed [facility] Conjugate, PCV7 00:00:00 [facility] (Prevnar7) [facility] DTAP 2006-02-11 Completed [facility] 00:00:00 [facility] HEPATITIS A 2006-02-11 Completed [facility] of 00:00:00 [facility] MMR 2006-02-11 Completed [facility] of 00:00:00 [facility] Polio (IPV/OPV) 2006-02-11 Completed [facility] 00:00:00 [facility] Pneumococcal 7 2006-02-11 Completed [facility] Conjugate, PCV7 00:00:00 [facility] (Prevnar7) [facility] DTAP 2006-02-11 Completed [facility] 00:00:00 [facility] HEPATITIS A 2006-02-11 Completed [facility] 00:00:00 [facility] MMR 2006-02-11 Completed [facility] of 00:00:00 [facility] Polio (IPV/OPV) 2006-02-11 Completed [facility] 00:00:00 [facility] Pneumococcal 7 2006-02-11 Completed [facility] Conjugate, PCV7 00:00:00 [facility] (Prevnar7) [facility] DTAP 2006-02-11 Completed [facility] 00:00:00 [facility] HEPATITIS A 2006-02-11 Completed [facility] 00:00:00 [facility] MMR 2006-02-11 Completed [facility] of 00:00:00 [facility] Polio (IPV/OPV) 2006-02-11 Completed [facility] 00:00:00 [facility] Pneumococcal 7 2006-02-11 Completed [facility] Conjugate, PCV7 00:00:00 [facility] (Prevnar7) [facility] DTAP 2006-02-11 Completed [facility] 00:00:00 [facility] HEPATITIS A 2006-02-11 Completed [facility] of 00:00:00 [facility] MMR 2006-02-11 Completed [facility] of 00:00:00 [facility] Polio (IPV/OPV) 2006-02-11 Completed [facility] 00:00:00 [facility] Pneumococcal 7 2006-02-11 Completed [facility] Conjugate, PCV7 00:00:00 [facility] (Prevnar7) [facility] DTAP 2006-02-11 Completed [facility] 00:00:00 [facility] HEPATITIS A 2006-02-11 Completed [facility] of 00:00:00 [facility] MMR 2006-02-11 Completed [facility] of 00:00:00 [facility] Polio (IPV/OPV) 2006-02-11 Completed [facility] of 00:00:00 [facility] Pneumococcal 7 2006-02-11 Completed [facility] Conjugate, PCV7 00:00:00 [facility] (Prevnar7) [facility] DTAP 2006-02-11 Completed [facility] 00:00:00 [facility] HEPATITIS A 2006-02-11 Completed [facility] 00:00:00 [facility] MMR 2006-02-11 Completed [facility] of 00:00:00 [facility] Polio (IPV/OPV) 2006-02-11 Completed [facility] 00:00:00 [facility] Pneumococcal 7 2006-02-11 Completed [facility] Conjugate, PCV7 00:00:00 [facility] (Prevnar7) [facility] DTAP 2006-02-11 Completed [facility] 00:00:00 [facility] HEPATITIS A 2006-02-11 Completed [facility] of 00:00:00 [facility] MMR 2006-02-11 Completed [facility] of 00:00:00 [facility] Polio (IPV/OPV) 2006-02-11 Completed [facility] 00:00:00 [facility] Pneumococcal 7 2006-02-11 Completed [facility] Conjugate, PCV7 00:00:00 [facility] (Prevnar7) [facility] DTAP 2006-02-11 Completed [facility] 00:00:00 [facility] HEPATITIS A 2006-02-11 Completed [facility] of 00:00:00 [facility] MMR 2006-02-11 Completed [facility] of 00:00:00 [facility] Polio (IPV/OPV) 2006-02-11 Completed [facility] 00:00:00 [facility] Pneumococcal 7 2006-02-11 Completed [facility] Conjugate, PCV7 00:00:00 [facility] (Prevnar7) [facility] DTAP 2006-02-11 Completed [facility] 00:00:00 [facility] HEPATITIS A 2006-02-11 Completed [facility] 00:00:00 [facility] MMR 2006-02-11 Completed [facility] of 00:00:00 [facility] Polio (IPV/OPV) 2006-02-11 Completed [facility] 00:00:00 [facility] Pneumococcal 7 2006-02-11 Completed [facility] Conjugate, PCV7 00:00:00 [facility] (Prevnar7) [facility] DTAP 2006-02-11 Completed [facility] of 00:00:00 [facility] Hep B, Adol or Pedi 2004-04-16 Completed [facility]ive [facility]ity [facility] Dosage 00:00:00 [facility] Polio (IPV/OPV) 2004-04-16 Completed [facility]00 [facility] Hep B, Adol or Pedi 2004-04-16 Completed [facility]ive rsity of Dosage 00:00:00 [facility] Polio (IPV/OPV) 2004-04-16 Completed [facility] 00:00:00 [facility] Hep B, Adol or Pedi 2004-04-16 Completed [facility]ive rsity of Dosage 00:00:00 [facility] Polio (IPV/OPV) 2004-04-16 Completed [facility] 00:00:00 [facility] Hep B, Adol or Pedi 2004-04-16 Completed [facility]ive rsity of Dosage 00:00:00 [facility] Polio (IPV/OPV) 2004-04-16 Completed [facility] 00:00:00 [facility] Hep B, Adol or Pedi 2004-04-16 Completed [facility]ive rsity of Dosage 00:00:00 [facility] Polio (IPV/OPV) 2004-04-16 Completed [facility] [place] 00:00:00 [facility] Hep B, Adol or Pedi 2004-04-16 Completed [facility]ive rsity of Dosage 00:00:00 [facility] Polio (IPV/OPV) 2004-04-16 Completed [facility] [place] 00:00:00 [facility] Hep B, Adol or Pedi 2004-04-16 Completed [facility]ive rsity of Dosage 00:00:00 [facility] Polio (IPV/OPV) 2004-04-16 Completed [facility] 00:00:00 [facility] 2004-04-16 Completed [facility] 00:00:00 [facility] Hep B, Adol or Pedi 2004-04-16 Completed Unive rsity of Dosage 00:00:00 [facility] Polio (IPV/OPV) 2004-04-16 Completed [facility] of 00:00:00 [facility] DTAP 2004-04-16 Completed [facility] 00:00:00 [facility] Hep B, Adol or Pedi 2004-04-16 Completed [facility]ive rsity of Dosage 00:00:00 [facility] Polio (IPV/OPV) 2004-04-16 Completed [facility] 00:00:00 [facility] DTAP 2004-04-16 Completed [facility] 00:00:00 [facility] Hep B, Adol or Pedi 2004-04-16 Completed [facility]ive rsity of Dosage 00:00:00 [facility] Polio (IPV/OPV) 2004-04-16 Completed [facility] of 00:00:00 [facility] DTAP 2004-04-16 Completed [facility] 00:00:00 [facility] Hep B, Adol or Pedi 2004-04-16 Completed [facility]ive rsity of Dosage 00:00:00 [facility] Polio (IPV/OPV) 2004-04-16 Completed [facility] 00:00:00 [facility] DTAP 2004-04-16 Completed [facility] 00:00:00 [facility] Hep B, Adol or Pedi 2004-04-16 Completed [facility]ive rsity of Dosage 00:00:00 [facility] Polio (IPV/OPV) 2004-04-16 Completed [facility] 00:00:00 [facility] DTAP 2004-04-16 Completed [facility] 00:00:00 [facility] Hep B, Adol or Pedi 2004-04-16 Completed [facility] rsity of Dosage 00:00:00 [facility] Polio (IPV/OPV) 2004-04-16 Completed [facility] 00:00:00 [facility] DTAP 2004-04-16 Completed [facility] 00:00:00 [facility] Hep B, Adol or Pedi 2004-04-16 Completed [facility] rsity of Dosage 00:00:00 [facility] Polio (IPV/OPV) 2004-04-16 Completed [facility] 00:00:00 [facility] DTAP 2004-04-16 Completed [facility] 00:00:00 [facility] Hep B, Adol or Pedi 2004-04-16 Completed [facility] rs[facility] of Dosage 00:00:00 [facility] Polio (IPV/OPV) 2004-04-16 Completed [facility] 00:00:00 [facility] DTAP 2004-04-16 Completed [facility] 00:00:00 [facility] Hep B, Adol or Pedi 2004-04-16 Completed [facility] rs[facility] of Dosage 00:00:00 [facility] Polio (IPV/OPV) 2004-04-16 Completed [facility] 00:00:00 [facility] DTAP 2004-04-16 Completed [facility] 00:00:00 [facility] Hep B, Adol or Pedi 2004-04-16 Completed [facility]ive rsity of Dosage 00:00:00 [facility] Polio (IPV/OPV) 2004-04-16 Completed [facility] of 00:00:00 [facility] DTAP 2004-04-16 Completed [facility] 00:00:00 [facility] Hep B, Adol or Pedi 2004-04-16 Completed [facility] rs[facility] of Dosage 00:00:00 [facility] Polio (IPV/OPV) 2004-04-16 Completed [facility] 00:00:00 [facility] DTAP 2004-04-16 Completed [facility] 00:00:00 [facility] Hep B, Adol or Pedi 2003-07-17 Completed [facility]ive rsity of Dosage 00:00:00 [facility] MMR 2003-07-17 Completed [facility] of 00:00:00 [facility] Polio (IPV/OPV) 2003-07-17 Completed [facility] of 00:00:00 [facility] Varicella 2003-07-17 Completed [facility] (varivax)(chicken 00:00:00 [facility] pox) [facility] DTAP 2003-07-17 Completed [facility] 00:00:00 [facility] HIB 4 Dose Schedule 2003-07-17 Completed Unive rsity of 00:00:00 [facility] Hep B, Adol or Pedi 2003-07-17 Completed [facility]ive rs[facility] of Dosage 00:00:00 [facility] MMR 2003-07-17 Completed [facility] 00:00:00 [facility] Polio (IPV/OPV) 2003-07-17 Completed [facility] of 00:00:00 [facility] Varicella 2003-07-17 Completed [facility] (varivax)(chicken 00:00:00 [facility] pox) [facility] DTAP 2003-07-17 Completed [facility] of 00:00:00 [facility] HIB 4 Dose Schedule 2003-07-17 Completed [facility]ive rsity of 00:00:00 [facility] Hep B, Adol or Pedi 2003-07-17 Completed [facility]ive rs[facility] of Dosage 00:00:00 [facility] MMR 2003-07-17 Completed [facility] 00:00:00 [facility] Polio (IPV/OPV) 2003-07-17 Completed [facility] 00:00:00 [facility] Varicella 2003-07-17 Completed [facility] (varivax)(chicken 00:00:00 [facility] pox) [facility] DTAP 2003-07-17 Completed [facility] 00:00:00 [facility] HIB 4 Dose Schedule 2003-07-17 Completed [facility]ive rsity of 00:00:00 [facility] Hep B, Adol or Pedi 2003-07-17 Completed [facility] rs[facility] of Dosage 00:00:00 [facility] MMR 2003-07-17 Completed [facility] of 00:00:00 [facility] Polio (IPV/OPV) 2003-07-17 Completed [facility] 00:00:00 [facility] Varicella 2003-07-17 Completed [facility] (varivax)(chicken 00:00:00 [facility] pox) [facility] DTAP 2003-07-17 Completed [facility] of 00:00:00 [facility] HIB 4 Dose Schedule 2003-07-17 Completed [facility]ive rsity of 00:00:00 [facility] Hep B, Adol or Pedi 2003-07-17 Completed [facility]ive rs[facility] of Dosage 00:00:00 [facility] MMR 2003-07-17 Completed [facility] 00:00:00 [facility] Polio (IPV/OPV) 2003-07-17 Completed [facility] of 00:00:00 [facility] Varicella 2003-07-17 Completed [facility] (varivax)(chicken 00:00:00 [facility] pox) [facility] DTAP 2003-07-17 Completed [facility] of 00:00:00 [facility] HIB 4 Dose Schedule 2003-07-17 Completed Unive rsity of 00:00:00 [facility] Hep B, Adol or Pedi 2003-07-17 Completed [facility]ive rsity of Dosage 00:00:00 [facility] MMR 2003-07-17 Completed [facility] of 00:00:00 [facility] Polio (IPV/OPV) 2003-07-17 Completed [facility] 00:00:00 [facility] Varicella 2003-07-17 Completed [facility] (varivax)(chicken 00:00:00 [facility] pox) [facility] DTAP 2003-07-17 Completed [facility] of 00:00:00 [facility] HIB 4 Dose Schedule 2003-07-17 Completed [facility]ive rsity of 00:00:00 [facility] Hep B, Adol or Pedi 2003-07-17 Completed [facility]ive rs[facility] of Dosage 00:00:00 [facility] MMR 2003-07-17 Completed [facility] of 00:00:00 [facility] Polio (IPV/OPV) 2003-07-17 Completed [facility] of 00:00:00 [facility] Varicella 2003-07-17 Completed [facility] (varivax)(chicken 00:00:00 [facility] pox) [facility] DTAP 2003-07-17 Completed [facility] 00:00:00 [facility] HIB 4 Dose Schedule 2003-07-17 Completed [facility]ive rsity of 00:00:00 [facility] Hep B, Adol or Pedi 2003-07-17 Completed [facility]ive rs[facility] of Dosage 00:00:00 [facility] MMR 2003-07-17 Completed [facility] 00:00:00 [facility] Polio (IPV/OPV) 2003-07-17 Completed [facility] 00:00:00 [facility] Varicella 2003-07-17 Completed [facility] (varivax)(chicken 00:00:00 [facility] pox) [facility] DTAP 2003-07-17 Completed [facility] 00:00:00 [facility] HIB 4 Dose Schedule 2003-07-17 Completed [facility]ive rsity of 00:00:00 [facility] Hep B, Adol or Pedi 2003-07-17 Completed [facility] rs[facility] of Dosage 00:00:00 [facility] MMR 2003-07-17 Completed [facility] of 00:00:00 [facility] Polio (IPV/OPV) 2003-07-17 Completed [facility] of 00:00:00 [facility] Varicella 2003-07-17 Completed [facility] (varivax)(chicken 00:00:00 [facility] pox) [facility] DTAP 2003-07-17 Completed [facility] 00:00:00 [facility] HIB 4 Dose Schedule 2003-07-17 Completed Unive rsity of 00:00:00 [facility] Hep B, Adol or Pedi 2003-07-17 Completed [facility] rs[facility] of Dosage 00:00:00 [facility] MMR 2003-07-17 Completed [facility] of 00:00:00 [facility] Polio (IPV/OPV) 2003-07-17 Completed [facility] of 00:00:00 [facility] Varicella 2003-07-17 Completed [facility] (varivax)(chicken 00:00:00 [facility] pox) [facility] DTAP 2003-07-17 Completed [facility] of 00:00:00 [facility] HIB 4 Dose Schedule 2003-07-17 Completed Unive rsity of 00:00:00 [facility] Hep B, Adol or Pedi 2003-07-17 Completed [facility] rs[facility] of Dosage 00:00:00 [facility] MMR 2003-07-17 Completed [facility] of 00:00:00 [facility] Polio (IPV/OPV) 2003-07-17 Completed [facility] 00:00:00 [facility] Varicella 2003-07-17 Completed [facility] (varivax)(chicken 00:00:00 [facility] pox) [facility] DTAP 2003-07-17 Completed [facility] 00:00:00 [facility] HIB 4 Dose Schedule 2003-07-17 Completed Unive rsity of 00:00:00 [facility] Hep B, Adol or Pedi 2003-07-17 Completed [facility] rs[facility] of Dosage 00:00:00 [facility] MMR 2003-07-17 Completed [facility] of 00:00:00 [facility] Polio (IPV/OPV) 2003-07-17 Completed [facility] 00:00:00 [facility] Varicella 2003-07-17 Completed [facility] (varivax)(chicken 00:00:00 [facility] pox) [facility] DTAP 2003-07-17 Completed [facility] 00:00:00 [facility] HIB 4 Dose Schedule 2003-07-17 Completed [facility]ive rsity of 00:00:00 [facility] Hep B, Adol or Pedi 2003-07-17 Completed [facility]ive rsity of Dosage 00:00:00 [facility] MMR 2003-07-17 Completed [facility] of 00:00:00 [facility] Polio (IPV/OPV) 2003-07-17 Completed [facility] 00:00:00 [facility] Varicella 2003-07-17 Completed [facility] (varivax)(chicken 00:00:00 [facility] pox) [facility] DTAP 2003-07-17 Completed [facility] 00:00:00 [facility] HIB 4 Dose Schedule 2003-07-17 Completed [facility]ive rsity of 00:00:00 [facility] Hep B, Adol or Pedi 2003-07-17 Completed [facility]ive rs[facility] of Dosage 00:00:00 [facility] MMR 2003-07-17 Completed [facility] 00:00:00 [facility] Polio (IPV/OPV) 2003-07-17 Completed [facility] 00:00:00 [facility] Varicella 2003-07-17 Completed [facility] (varivax)(chicken 00:00:00 [facility] pox) [facility] DTAP 2003-07-17 Completed [facility] 00:00:00 [facility] HIB 4 Dose Schedule 2003-07-17 Completed [facility]ive rsity of 00:00:00 [facility] Hep B, Adol or Pedi 2003-07-17 Completed [facility]ive rs[facility] of Dosage 00:00:00 [facility] MMR 2003-07-17 Completed [facility] of 00:00:00 [facility] Polio (IPV/OPV) 2003-07-17 Completed [facility] 00:00:00 [facility] Varicella 2003-07-17 Completed [facility] (varivax)(chicken 00:00:00 [facility] pox) [facility] DTAP 2003-07-17 Completed [facility] 00:00:00 [facility] HIB 4 Dose Schedule 2003-07-17 Completed [facility]ive rsity of 00:00:00 [facility] Hep B, Adol or Pedi 2003-07-17 Completed [facility] of Dosage 00:00:00 [facility] MMR 2003-07-17 Completed [facility] 00:00:00 [facility] Polio (IPV/OPV) 2003-07-17 Completed [facility] 00:00:00 [facility] Varicella 2003-07-17 Completed [facility] (varivax)(chicken 00:00:00 [facility] pox) [facility] DTAP 2003-07-17 Completed [facility] 00:00:00 [facility] HIB 4 Dose Schedule 2003-07-17 Completed [facility]ive rsity of 00:00:00 [facility] Hep B, Adol or Pedi 2003-07-17 Completed [facility] of Dosage 00:00:00 [facility] MMR 2003-07-17 Completed [facility] 00:00:00 [facility] Polio (IPV/OPV) 2003-07-17 Completed [facility] 00:00:00 [facility] Varicella 2003-07-17 Completed [facility] (varivax)(chicken 00:00:00 [facility] pox) [facility] DTAP 2003-07-17 Completed [facility] 00:00:00 [facility] HIB 4 Dose Schedule 2003-07-17 Completed [facility]ive rsity of 00:00:00 [facility] Hep B, Adol or Pedi 2003-07-17 Completed [facility] of Dosage 00:00:00 [facility] MMR 2003-07-17 Completed [facility] 00:00:00 [facility] Polio (IPV/OPV) 2003-07-17 Completed [facility] 00:00:00 [facility] Varicella 2003-07-17 Completed [facility] (varivax)(chicken 00:00:00 [facility] pox) [facility] DTAP 2003-07-17 Completed [facility] 00:00:00 [facility] HIB 4 Dose Schedule 2003-07-17 Completed [facility] of 00:00:00 [facility] Hep B, Adol or Pedi 2002 Completed [facility] of Dosage 00:00:00 [facility] DTAP 2002 Completed [facility] 00:00:00 [facility] HIB 4 Dose Schedule 2002 Completed [facility] of 00:00:00 [facility] Hep B, Adol or Pedi 2002 Completed [facility] of Dosage 00:00:00 [facility] DTAP 2002 Completed [facility] 00:00:00 [facility] HIB 4 Dose Schedule 2002 Completed [facility] of 00:00:00 [facility] Hep B, Adol or Pedi 2002 Completed [facility] of Dosage 00:00:00 [facility] DTAP 2002 Completed [facility] 00:00:00 [facility] HIB 4 Dose Schedule 2002 Completed [facility] of 00:00:00 [facility] Hep B, Adol or Pedi 2002 Completed [facility] of Dosage 00:00:00 [facility] DTAP 2002 Completed [facility] 00:00:00 [facility] HIB 4 Dose Schedule 2002 Completed [facility] of 00:00:00 [facility] Hep B, Adol or Pedi 2002 Completed [facility] of Dosage 00:00:00 [facility] DTAP 2002 Completed [facility] 00:00:00 [facility] HIB 4 Dose Schedule 2002 Completed [facility] of 00:00:00 [facility] Hep B, Adol or Pedi 2002 Completed [facility] of Dosage 00:00:00 [facility] DTAP 2002 Completed [facility] 00:00:00 [facility] HIB 4 Dose Schedule 2002 Completed [facility] of 00:00:00 [facility] Hep B, Adol or Pedi 2002 Completed [facility] of Dosage 00:00:00 [facility] DTAP 2002 Completed [facility] 00:00:00 [facility] HIB 4 Dose Schedule 2002 Completed [facility] of 00:00:00 [facility] Hep B, Adol or Pedi 2002 Completed [facility] of Dosage 00:00:00 [facility] DTAP 2002 Completed [facility] 00:00:00 [facility] HIB 4 Dose Schedule 2002 Completed [facility] of 00:00:00 [facility] Hep B, Adol or Pedi 2002 Completed [facility] of Dosage 00:00:00 [facility] DTAP 2002 Completed [facility] 00:00:00 [facility] HIB 4 Dose Schedule 2002 Completed [facility] of 00:00:00 [facility] Hep B, Adol or Pedi 2002 Completed [facility] of Dosage 00:00:00 [facility] DTAP 2002 Completed [facility] 00:00:00 [facility] HIB 4 Dose Schedule 2002 Completed [facility] of 00:00:00 [facility] Hep B, Adol or Pedi 2002 Completed [facility] of Dosage 00:00:00 [facility] DTAP 2002 Completed [facility] 00:00:00 [facility] HIB 4 Dose Schedule 2002 Completed [facility] of 00:00:00 [facility] Hep B, Adol or Pedi 2002 Completed [facility] of Dosage 00:00:00 [facility] DTAP 2002 Completed [facility] 00:00:00 [facility] HIB 4 Dose Schedule 2002 Completed [facility] of 00:00:00 [facility] Hep B, Adol or Pedi 2002 Completed [facility] of Dosage 00:00:00 [facility] DTAP 2002 Completed [facility] 00:00:00 [facility] HIB 4 Dose Schedule 2002 Completed [facility] of 00:00:00 [facility] Hep B, Adol or Pedi 2002 Completed [facility] of Dosage 00:00:00 [facility] DTAP 2002 Completed [facility] 00:00:00 [facility] HIB 4 Dose Schedule 2002 Completed Unive rsity of 00:00:00 [facility] Hep B, Adol or Pedi 2002 Completed Unive rsity of Dosage 00:00:00 [facility] DTAP 2002 Completed [facility] 00:00:00 [facility] HIB 4 Dose Schedule 2002 Completed Unive rsity of 00:00:00 [facility] Hep B, Adol or Pedi 2002 Completed Unive rsity of Dosage 00:00:00 [facility] DTAP 2002 Completed University of 00:00:00 [facility] HIB 4 Dose Schedule 2002 Completed Unive rsity of 00:00:00 [facility] Hep B, Adol or Pedi 2002 Completed Unive rsity of Dosage 00:00:00 [facility] DTAP 2002 Completed University of 00:00:00 [facility] HIB 4 Dose Schedule 2002 Completed Unive rsity of 00:00:00 [facility] Hep B, Adol or Pedi 2002 Completed Unive rsity of Dosage 00:00:00 [facility] DTAP 2002 Completed University of 00:00:00 [facility] HIB 4 Dose Schedule 2002 Completed Unive rsity of 00:00:00 [facility] Vital Signs Vital Name Observation Time Observation Value Comments Source Systolic blood 2022-08-06 21:40:00 120 mm[Hg] Univer sity of pressure [facility] Diastolic blood 2022-08-06 21:40:00 85 mm[Hg] Unive rsity of pressure [facility] Heart rate 2022-08-06 21:40:00 74 /min Universi ty of [facility] Body temperature 2022-08-06 21:40:00 36.44 Lisha Univ ersity of [facility] Respiratory rate 2022-08-06 21:40:00 18 /min Univ ersity of [facility] Body weight 2022-08-06 21:40:00 113.036 kg Universi ty of [facility] Oxygen saturation in 2022-08-06 21:40:00 96 /min University of Arterial blood by [place] [employer] chelsey Pulse oximetry Branch Systolic blood 2022-05-25 01:26:00 124 mm[Hg] Univer sity of pressure [facility] Diastolic blood 2022-05-25 01:26:00 82 mm[Hg] Unive rsity of pressure [facility] Heart rate 2022-05-25 01:26:00 81 /min Universi ty of [facility] Body temperature 2022-05-25 01:26:00 37 Lisha Univ ersity of [facility] Respiratory rate 2022-05-25 01:26:00 17 /min Univ ersity of [facility] Body height 2022-05-25 01:26:00 172.7 cm Universi ty of [facility] Branch Body weight 2022-05-25 01:26:00 108.863 kg Universi ty of [facility] Branch BMI 2022-05-25 01:26:00 36.49 kg/m2 Universi ty of [facility] Oxygen saturation in 2022-05-25 01:26:00 98 /min University of Arterial blood by [employer] chelsey Pulse oximetry Branch Systolic blood 2022-01-26 21:33:00 113 mm[Hg] Univer sity of pressure [facility] Diastolic blood 2022-01-26 21:33:00 78 mm[Hg] Unive rsity of pressure [facility] Heart rate 2022-01-26 21:33:00 64 /min Universi ty of [facility] Body temperature 2022-01-26 21:33:00 36.11 Lisha Univ ersity of [facility] Respiratory rate 2022-01-26 21:33:00 17 /min Univ ersity of [facility] Body height 2022-01-26 21:33:00 172.7 cm Universi ty of [facility] Body weight 2022-01-26 21:33:00 113.263 kg Universi ty of [facility] BMI 2022-01-26 21:33:00 37.97 kg/m2 Universi ty of [facility] Oxygen saturation in 2022-01-26 21:33:00 96 /min University of Arterial blood by [employer] chelsey Pulse oximetry Branch Systolic blood 2021-10-16 19:21:00 134 mm[Hg] Univer sity of pressure [facility] Diastolic blood 2021-10-16 19:21:00 85 mm[Hg] Unive rsity of pressure [facility] Heart rate 2021-10-16 19:21:00 97 /min Universi ty of [facility] Body temperature 2021-10-16 19:21:00 36.17 Lisha Univ ersity of [facility] Respiratory rate 2021-10-16 19:21:00 16 /min Univ ersity of [facility] Body height 2021-10-16 19:21:00 172.7 cm Universi ty of [facility] Body weight 2021-10-16 19:21:00 105.235 kg Universi ty of [facility] BMI 2021-10-16 19:21:00 35.28 kg/m2 Universi ty of [facility] Body mass index 2021-10-16 19:21:00 98.72 % Unive rsity of (BMI) [Percentile] [facility] ical Per age and sex Branch Oxygen saturation in 2021-10-16 19:21:00 100 /min University of Arterial blood by [employer] chelsey Pulse oximetry Branch Systolic blood 2021-09-29 17:09:00 126 mm[Hg] Univer sity of pressure [facility] Diastolic blood 2021-09-29 17:09:00 83 mm[Hg] Unive rsity of pressure [facility] Branch Heart rate 2021-09-29 17:09:00 92 /min Universi ty of [facility] Body temperature 2021-09-29 17:09:00 37.28 Lisha Univ ersity of [facility] Branch Respiratory rate 2021-09-29 17:09:00 16 /min Univ ersity of [facility] Branch Body height 2021-09-29 17:09:00 172.7 cm Universi ty of [facility] Body weight 2021-09-29 17:09:00 101.606 kg Universi ty of [facility] BMI 2021-09-29 17:09:00 34.06 kg/m2 Universi ty of [facility] Body mass index 2021-09-29 17:09:00 98.28 % Unive rsity of (BMI) [Percentile] [place] [facility] Per age and sex Branch Oxygen saturation in 2021-09-29 17:09:00 97 /min University of Arterial blood by [place] [employer] Pulse oximetry [facility] Systolic blood 2021-02-11 21:19:00 133 mm[Hg] Univer sity of pressure [facility] Branch Diastolic blood 2021-02-11 21:19:00 85 mm[Hg] Unive rsity of [facility] Heart rate 2021-02-11 21:19:00 84 /min [facility] [place] Body height 2021-02-11 21:19:00 172.7 cm [facility] [place] Body weight 2021-02-11 21:19:00 94.802 kg [facility]i ty of [facility] BMI 2021-02-11 21:19:00 31.78 kg/m2 Universi ty of [facility] Body mass index 2021-02-11 21:19:00 97.30 % Unive rsity of (BMI) [Percentile] [place] [facility] Per age and sex Branch Oxygen saturation in 2021-02-11 21:19:00 99 /min University of Arterial blood by [place] [employer] chelsey Pulse oximetry Branch Procedures Procedure Date / Time Performed Performing Clinician Sour e PHYSICIAN ORDERS 2022-06-02 06:01:00 Doctor Unassigned, No [facility] XR ANKLE 3+ VW RIGHT 2022-05-25 01:40:58 LuNils person Univers ity [facility] POCT MOLECULAR FLU 2022-01-26 21:39:00 MarlyNilsit y [facility] POCT MOLECULAR STREP 2022-01-26 21:37:00 LuiNls person Univers ity [facility] POCT MOLECULAR STREP 2021-10-16 19:26:00 LuNils person [facility] POCT MOLECULAR STREP 2021-09-29 17:15:00 Russel Amalia [facility] ASSIGNMENT OF BENEFITS 2021-09-29 16:57:55 Doctor Unassigned, No [facility] ASSIGNMENT OF BENEFITS 2021-07-22 20:58:48 Doctor Unassigned, No [facility] Encounters Start End Encounter Admission Attending Care Care Encounter Source Date/Time Date/Time Type Type Clinicians Facility Department ID 2021-03-09 Emergency [facility] [id number] Univers 15:01:06 ity [facility] 2021-03-08 Emergency [facility] [id number] Univers 23:49:56 [facility] 2022-08-06 2022-08-06 Urgent Marly Rafalmelvina [facility] 1.2.840.114 [id number] Univers 16:20:00 16:40:00 Care Unknown, [facility] [id number] [facility] 4.2.7.2.686 Augustin as WILLIAM?BLEA [phone] [address] MEDICAL OFFICE BUILDING 2022-08-06 2022-08-06 Outpatient R MARLY [facility] [id number] Univers 16:20:00 [facility] 2022-08-06 2022-08-06 Letter Marly [facility] 1.2.840.114 [id number] Univers 00:00:00 00:00:00 [facility] 350.1.13.10 it y of [place] 4.2.7.2.686 Augustin as WILLIAM?BLEA [id number] [address] MEDICAL OFFICE BUILDING 2022-06-02 2022-06-02 Sanitation Manager Kelly, Brooke [facility] Main [facility] 1.2.8 40.114 [id number] Univers 15:00:00 15:15:00 Visit Fadi AngKEVEN 350.1.13.10 ity [facility] 4.2.7.2.[place] [phone] Ri dical NAL [address] [facility] 2022-06-02 2022-06-02 Outpatient R CALLY [facility] [id number] Univers 15:00:00 15:00:00 FADI ity [facility] 2022-06-02 2022-06-02 Orders Doctor EDUARDA 1.2.840.114 [id number] Univers 00:00:00 00:00:00 Only Unassigned, [place] 350.1.13.10 ity of [place] [facility] 4.2.7.2.686 Augustin as [phone] [address] 2022-05-24 2022-05-[address] [facility] [id number] Univers 19:36:54 23:59:00 [facility] 2022-05-24 2022-05-24 [facility] [id number] Univers 19:36:54 23:59:00 Encounter [facility] 350.1.13.10 ity of [place] 4.2.7.2.686 Augustin as WILLIAM?BLEA [phone] Ri dical YULIEY [address] MEDICAL OFFICE [facility] 2022-05-24 2022-05-24 Urgent [facility] 1.2.840.114 [id number] Univers 19:20:00 19:40:00 Care Unknown, Attending HEALTH 350.1.13.10 ity of [place] 4.2.7.2.686 Augustin as WILLIAM?BLEA [phone] Ri dical EY [address] [facility] OFFICE [facility] 2022-01-26 2022-01-26 Outpatient R MARLY [facility] [id number] Univers 16:40:00 16:45:08 [facility] 2022-01-262022-01-26 Urgent Amalia Goode [facility] 1.2.840.114 [id number] Univers 16:40:00 16:45:08 Care Ebmelenaya, [employer] HEALTH 350.1.13.10 ity of [place] 4.2.7.2.686 Augustin as WILLIAM?BLEA [id number] [address] MEDICAL OFFICE [facility] 2021-12-06 2021-12-06 Letter EDUARDA Pineda 1.2.840.114 [id number] Univers 00:00:00 00:00:00 (Out) Kina BEAVER 350.1.13.10 it y of HOSPITAL 4.2.7.2.686 Augustin as [id number] [address] 2021-12-05 2021-12-05 Laboratory Only, Ang Db Test [facility] 1.2.8 40.114 [id number] Univers 18:30:00 18:44:20 Only Emilia Anton [employer] 350.1.13.10 ity [facility] 4.2.7.2.686 Augustin as WILLIAM?BLEA [id number] [address] OFFICE [facility] 2021-12-05 2021-12-05 Outpatient R TAYLOR [facility] [id number] Univers 18:30:00 18:30:00 EMILIA brownleey o f [facility] 2021-10-22 2021-10-22 Telephone Provider, [facility] 1.2.840.114 [id number] Univers 00:00:00 00:00:00 Ang Db HEALTH 350.1.13.10 it y of Urgent [facility] 4.2.7.2.686 [place] WILLIAM?BLEA [id number] [address] OFFICE [facility] 2021-10-16 2021-10-16 Urgent Zahira Rossi [facility] 1.2.840.114 [id number] Univers 14:20:00 14:40:00 Care Danemelenaya, [employer] HEALTH 350.1.13.10 ity of [place] 4.2.7.2.686 Augustin as WILLIAM?BLEA [id number] [address] OFFICE [facility] 2021-10-16 2021-10-16 Outpatient R FLO [facility] [id number] Univers 14:20:00 14:20:00 ZAHIRA ity [facility] 2021-09-29 2021-09-29 Urgent Emilia Anton [facility] 1.2.840 .114 [id number] Univers 12:00:00 12:20:00 Aldo [facility] 350.1.13.10 ity of [place] 4.2.7.2.686 Augustin as WILLIAM?BLEA [id number] [address] MEDICAL OFFICE BUILDING 2021-09-29 2021-09-29 Outpatient R TAYLOR [facility] [id number] Univers 12:00:00 12:00:00 EMILIA wheat o f [facility] 2021-09-29 2021-09-29 Orders Doctor EDUARDA 1.2.840.114 [id number] Univers 00:00:00 00:00:00 Only Unassigned, [place] 350.1.13.10 ity of [place] [facility] 4.2.7.2.686 Augustin as [id number] [address] 2021-07-22 2021-07-22 Outpatient R CALLY [facility] [id number] Univers 16:01:24 23:59:00 EDWARD ity [facility] 2021-07-22 2021-07-22 [facility] 1.2.840.114 [id number] Univers 16:00:00 23:59:00 Encounter Edmonika ALSTON 350.1.13.10 ity of [place] 4.2.7.2.686 [place] [facility] [phone] [facility] [address] 2021-07-22 2021-07-22 Orders Doctor EDUARDA 1.2.840.114 [id number] Univers 00:00:00 00:00:00 Only Unassigned, [place] 350.1.13.10 ity of [place] [facility] 4.2.7.2.686 Augustin as [id number] [facility] [address] 2021-07-06 2021-07-06 Telephone [facility] 1.2.472.074 [id number] Univers 00:00:00 00:00:00 Edward L GAMALIEL 350.1.13.10 ity [facility] 4.2.7.2.686 [place] [phone] Ri dicbeny NAL [address] [facility] 2021-07-04 2021-07-04 Outpatient R ANG [facility] [id number] Univers 14:36:46 23:59:00 EDMONIKA wheat [facility] 2021-02-11 2021-02-11 Office [facility] 1.2.840.114 [id number] Univers 16:10:32 16:44:[address] [facility] 350.1.13.10 itsharath [facility] 4.2.7.2.686 Augustin as William?Blea [phone] [facility] kacie 092 [facility] Office [facility] 2021-02-11 2021-02-11 Outpatient R J CARLOSSAMMY [facility] [id number] Univers 16:00:00 16:00:00 SAMMY WHITMAN [facility] 2021-02-06 2021-02-06 Telephone [facility] 1.2.840.114 [id number] Univers 00:00:00 00:00:00 Sammy Gann [place] [facility].1.13.10 [facility] [place].2.[place].2.[place] [phone] [facility] [address] [employer] 2020-12-29 2020-12-29 Outpatient R BLAKE [facility] [id number] Univers 15:40:00 15:40:00 ATTENDING ity [facility] 2020-12-29 2020-12-29 Letter EDUARDA Pineda 1.2.840.114 [id number] Univers 00:00:00 00:00:00 (Out) Kina BEAVER 350.1.13.10 it of [facility] 4.2.7.2.686 Augustin as [phone] [address] 2020-12-27 2020-12-27 Outpatient R SARAHI [facility] [id number] Univers 19:00:00 19:00:00 EVA aguilar [facility] 2020-12-27 2020-12-27 Letter Doctor EDUARDA 1.2.840.114 [id number] Univers 00:00:00 00:00:00 (Out) Unassigned, [place] 350.1.13.10 ity of [place] [facility] 4.2.7.2.686 Augustin as [phone] [facility] 0[address] Branch 2020-12-23 2020-12-23 Office Sandra Ovalles [facility] 1.2.840.1 [id number] Univers 09:19:17 10:45:08 Visit Estefany Villeda 350.1.13.10 ity of [facility] 4.2.7.2.686 Augustin as BANK [phone] [facility] BLDG. [address] Branch 2020-12-23 2020-12-23 Outpatient SAMMY COLES [facility] [id number] Univers 09:30:00 09:30:00 SAMMY WHITMAN [facility] 2020-11-19 2020-11-19 Office J Carlos [facility] 1.2.840.114 [id number] Univers 11:43:50 12:16:56 Visit Sammy [place] 350.1.13.10 ity [facility] 4.2.7.2.686 [place] [facility] [phone] [facility] [address] [employer] 2020-11-19 2020-11-19 Outpatient SAMMY COLES [facility] [id number] Univers 11:20:00 11:20:00 SAMMY WHITMAN [facility] 2020-10-17 2020-10-17 [facility] 1.2.203.879 [id number] Univers 09:44:47 23:59:00 Encounter Sammy [place] 350.1.13.10 ity [facility] 4.2.7.2.686 [place] [id number] [facility] [address] 2020-10-17 2020-10-17 Outpatient SAMMY COLES [facility] [id number] Univers 00:00:00 00:00:00 SAMMY WHITMAN [facility] 2020-10-10 2020-10-10 Outpatient SAMMY COLES [facility] [id number] Univers 00:00:00 00:00:00 J CARLOSSAMMY jarret [facility] 2020-10-10 2020-10-10 Orders Doctor EDUARDA 1.2.840.114 [id number] Univers 00:00:00 00:00:00 Only Unassigned, [place] 350.1.13.10 ity of [place] HOSPITAL 4.2.7.2.686 Augustin as [id number] [address] 2020-10-02 2020-10-02 Outpatient Zeus WHITMANSAMMY [facility] [id number] Univers 00:00:00 00:00:00 J CARLOSSAMMY Benoit jarret [facility] 2020-09-24 2020-09-24 Office J Carlos [facility] 1.2.840.114 [id number] Univers 08:47:33 09:47:41 Visit Sammy [place] 350.1.13.10 ity of [place] 4[place]2.7.2.686 [place] [facility] [id number] [address] 2020-09-24 2020-09-24 Outpatient SAMMY COLES [facility] [id number] Univers 08:40:00 08:40:00 J CARLOSSAMMY jarret [facility] 2020-09-24 2020-09-24 Orders Doctor LERNER 1.2.840.114 [id number] Univers 00:00:00 00:00:00 Only Unassigned, [place] 350.1.13.10 ity of [place] [facility] 4.2.7.2.686 Augustin as [phone] [facility] [address] 2020-08-30 2020-08-30 Emergency Jayden Palm [facility] 1.2.840.114 [id number] Univers 20:32:00 21:17:00 Kamla [place] 350.1.13.10 i ty of [place] 4.2.7.2.686 [place] [phone] [facility] 0[address] Branch 2020-07-08 2020-07-08 Orders Doctor EDUARDA 1.2.840.114 [id number] Univers 00:00:00 00:00:00 Only Unassigned, DS 350.1.13.10 ity of [place] HOSPITAL 4.2.7.2.686 Augustin as [id number] [address] 2020-06-26 2020-06-26 Emergency Stewart, [facility] 1.2.840.114 [id number] Univers 15:32:00 17:08:00 Elyse [place] 350.1.13.10 i ty of [place] 4.2.7.2.686 [place] [phone] [place] 974[address] 2020-06-26 2020-06-26 Orders Doctor EDUARDA 1.2.840.114 [id number] Univers 00:00:00 00:00:00 Only Unassigned, [place] 350.1.13.10 ity of [place] HOSPITAL 4.2.7.2.686 Augustin as [phone] [address] 2019-01-23 2019-01-23 Letter EDUARDA Mcclure 1.2.840.114 [id number] Univers 00:00:00 00:00:00 (Out) Luann BEAVER 350.1.13.10 it y of HOSPITAL 4.2.7.2.686 Augustin as [phone] [facility] [address] Branch 2019-01-15 2019-01-15 Urgent John Rowell E [facility] 1.2.840.11 [id number] Univers 15:00:54 15:21:42 Care Unknown, Attending Health 350.1.13.10 ity of Surgical 4.2.7.2.686 Augustin as Specialti [id number] Ri dical es 370 [facility] 2019-01-15 2019-01-15 Orders Doctor EDUARDA 1.2.840.114 [id number] Univers 00:00:00 00:00:00 Only Unassigned, [place] 350.1.13.10 ity of [place] HOSPITAL 4.2.7.2.686 Augustin as [id number] [address] 2018-12-22 2018-12-22 Orders Doctor EDUARDA 1.2.840.114 [id number] Univers 00:00:00 00:00:00 Only Unassigned, [place] 350.1.13.10 ity of [place] HOSPITAL 4.2.7.2.686 Augustin as [phone] [address] Results Test Description Test Time Test Comments Results Result Comments Source POCT MOLECULAR FLU 2022-01-26 21:50:28 Test Item Value Reference Range Interpretation Comme nts POCT Molecular FluA (test code = 93902-6) Negative Negative POCT Molecular FluB (test code = 16642-0) Negative Negative Lab Interpretation (test code = 57505-3) Normal [facility] MOLECULAR [id number] 21:44:49 Test Item Value Reference Range Interpretation Comments POCT Molecular Strep (test code = Negative Negative 95753-1) Lab Interpretation (test code = Normal 71973-3) [facility] MOLECULAR [id number] 19:33:19 Test Item Value Reference Range Interpretation Comments POCT Molecular Strep (test code = Negative Negative 21505-8) Lab Interpretation (test code = Normal 71434-7) [facility] MOLECULAR [id number] 17:19:01 Test Item Value Reference Range Interpretation Comments POCT Molecular Strep (test code = Positive Negative A 24389-5) Lab Interpretation (test code = Abnormal 60006-1) [facility]
[2022-10-05 21:42] LABS: Absolute Lymphocytes (CBC) 1.5 K/uL (0.7-4.9); Lymphocytes % 23.7 % (15.3-44.8); MCV 82.1 fL (80-100); MPV 7.4 fL (7.6-11.3)
[2022-10-05 21:52] LABS: Potassium 3.6 mEq/L (3.5-5.1)
--- NOTE | 2022-10-05 22:26 | RAD REPORT ---
EXAM DESCRIPTION: RAD - Chest Single View - 10/05/2022 10:15 pm CLINICAL HISTORY: CHEST PAIN COMPARISON: Chest Single View dated 10/13/2018 FINDINGS: Lines: None. Lungs: No evidence of edema or pneumonia. Pleural: No significant pleural effusions or pneumothorax. Cardiac: The heart size is within normal limits. Mediastinum: Within normal limits. Bones: No acute fractures. Other: None IMPRESSION: No acute cardiopulmonary disease.
--- NOTE | 2022-10-05 22:27 | RAD REPORT ---
EXAM DESCRIPTION: RAD - Shoulder Left 2 View - 10/05/2022 10:13 pm CLINICAL HISTORY: injury COMPARISON: No comparisons FINDINGS/IMPRESSION: No acute fracture. No malalignment. No significant focal degenerative changes.
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
[2022-10-05] MEDS ORDERED: LORAZEPAM 1 MG TABLET ONE (23:32)
[2022-10-06 00:35] LABS: Barbiturates NEGATIVE (NEGATIVE); Benzodiazepines NEGATIVE (NEGATIVE); Cocaine NEGATIVE (NEGATIVE); METHAMPHETAM NEGATIVE (NEGATIVE); Methadone NEGATIVE (NEGATIVE); Opiates POSITIVE (NEGATIVE); Phencyclidine NEGATIVE (NEGATIVE); THC Cannibis NEGATIVE (NEGATIVE)
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
[2022-10-06 06:47] VITALS: BP 123/81; TEMP 98.1; O2SAT 100
== END 2022-10-06 06:22 ==
LOC: ER 21:05
DX: S70.311A Abrasion, right thigh, initial encounter (principal); S40.212A Abrasion of left shoulder, initial encounter; S40.012A Contusion of left shoulder, initial encounter; X83.8XXA Intentional self-harm by other specified means, initial encounter; F33.8 Other recurrent depressive disorders; F20.9 Schizophrenia, unspecified
CPT/HCPCS: 85025; 80048; 36415; 86900; 86850; 86901; 80307; 71045; 72170; 73030; G0480 ×3; 90471; 96374; 96375; 99285

== ENCOUNTER 2025-02-20 20:25 | Emergency (ER) | payer OTHER ==
--- OUTSIDE RECORDS SUMMARY | 2025-02-20 20:34 | XMS REPORT | Continuity of Care Document ---
Author Name Unknown Address [address] [facility] [address]. [address] [place] [address] [facility] [place] Address [address] 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 Name Role Phone Carlin Toledo Dr.mberly Primary Care Physician AMALIA GOODE Attending Clinician Unavailable VENU AVILA Attending Clinician Unavailable VENU AVILA Attending Clinician Unavailable GERALD ARELLANO Attending Clinician Unavailable GERALD ARELLANO Attending Clinician Unavailable Gerald Arellano DO Attending Clinician [phone] Doctor Unassigned, [place] Attending Clinician U ELISE Wallace Attending Clinician Unavailable Elise Hassan Attending Clinician [phone] Unknown, Attending Attending Clinician Unavailab MIS Lambert Attending Clinician Unavailable MIS JAMES Attending Clinician Unavailable NAOMI GUY Attending Clinician Unavailable MalenaNaomi Vicente Attending Clinician [phone] [place] Attending Clinician Unavailable Santo Tucker Attending Clinician [phone] Amalia Goode MD Attending Clinician [phone] DORINA GREENE Attending Clinician Unavailable Dorina Greene PA-C Attending Clinician [phone] ELOISE GILLIAM Attending Clinician Unavailable Eloise Castro Attending Clinician [phone] Pob, [facility] Attending Clinician UnavailFadi Franz MD Attending Clinician FADI ANG Attending Clinician Unavailable Kina Pineda RN Attending Clinician Unavailab le Only, Ang Db Test Attending Clinician UnavailFranchesca Pandey Attending Clinician [phone] FRANCHESCA ANTON Attending Clinician Unavailab le Provider, [facility] Attending Clinician Unavailable Lindsay Anne Attending Clinician [phone] LINDSAY ROSSI Attending Clinician Unavailable Sammy Whitman MD Attending Clinician SAMMY WHITMAN Attending Clinician Unavail able SAMMY WHITMAN Attending Clinician Unavail able UNKNOWN, ATTENDING Attending Clinician Unavailab EVA Bell Attending Clinician Unavailabl jose r Ovalles MD, Sandra Attending Clinician [phone] Estefany Villeda OD Attending Clinician [phone] Jayden Valles Attending Clinician [phone] Terry BERNARDO, Elyse Attending Clinician [phone] Luann Mcclure MD Attending Clinician [phone] John Rowell MD Attending Clinician [phone] MIS JAMES Admitting Clinician Unavailable NAOMI GUY Admitting Clinician Unavailable FADI ANG Admitting Clinician Unavailable Payers Payer Name Policy Type Policy Number Effective Date Expirati on Date Source [employer] MEDICAID [id number] 2014 00:00:00 [facility] [id number] 2020 00:00:00 [facility] DUAL COMP HMO-POS D SNP [id number] 2024 00:00:00 MEDICA[place] [id number] 2023 00:00:00 Problems Condition Name Condition Details Condition Category Status Onset Date Resolution Date Last Treatment Date Treating Clinician Comments Source No known active problems No known active problems Disease [facility] Tinea fransisco Tinea fransisco Disease Resolve d 2006-11-16 00:00: 00 2018-02-19 00:00:00 2018-02-19 21:14:52 [facility] Allergies, Adverse Reactions, Alerts Allergy Name Allergy Type Status Severity Reaction(s) Onset Date Inactive Date Treating Clinician Comments Source NO KNOWN ALLERGIE S Drug Class Active [facility] Social History Social Habit Start Date Stop Date Quantity Comments Source [facility] intake 2025-02-07 00:00:00 2025-02-07 00:00:00 Lifetime non-drinker (finding) [facility] Alcohol intake 2022-12-04 00:00:00 2022-12-04 00:00:00 Lifetime non-drinker (finding) [facility] Exposure to SARS-CoV-2 (event) 2022-07-27 00:00:00 2022-08-06 16:34:00 Not sure [facility] Tobacco use and exposure 2022-01-26 00:00:00 2022-01-26 00:00:00 Smokeless tobacco non-user [facility] History of Social function 2020-09-24 00:00:00 2020-09-24 00:00:00 [facility] Sex assigned at 2002 00:00:00 2000 00:00:00 [facility] Smoking Status Start Date Stop Date Source Never smoked tobacco [facility] Medications Ordered Medication Name Filled Medication Name Start Date Stop Date Current Medication? Ordering Clinician Indication Dosage Frequency Signature (SIG) Comments Components Source mupirocin 2 % ointment 2024-05 00:00: 00 Yes [id number] Apply to areas(s) 3 times daily. [facility] levofloxaci n 500 mg tablet 09-21 00:00: 00 Yes 1mg Will Eden buspirone 15 mg tablet 09-14 00:00: 00 Yes 1mg Will Eden olanzapine 10 mg tablet 09-14 00:00: 00 Yes 1mg Will Eden quetiapine 50 mg tablet 09-14 00:00: 00 Yes 1mg Will Eden hydroxyzine HCl 50 mg tablet 09-14 00:00: 00 Yes 12mg Willfermin Eden buspirone 15 mg tablet 08-31 00:00: 00 Yes 1mg Will Eden olanzapine 10 mg tablet 08-31 00:00: 00 Yes 1mg Will Eden quetiapine 50 mg tablet 08-31 00:00: 00 Yes 1mg Will Eden hydroxyzine HCl 50 mg tablet 08-31 00:00: 00 Yes 12mg Will Eden dexamethaso ne sod phos PF injection 10 mg 07-03 13:30: 00 07-03 12:29 :00 No 10mg 10 mg, Oral, ONCE, 1 dose, On Wed07/03/24 at 0730, Routine [facility] ondansetron (ZOFRAN-ODT ) disintegrat ing tablet 4 mg 07-03 13:30: 00 07-03 12:29 :00 No 4mg 4 mg, Oral, ONCE, 1 dose, On Wed07/03/24 at 0730, Routine [facility] ondansetron 4 mg disintegrat ing tablet 07-03 00:00: 00 Yes [id number] 4mg Take 1 tablet by mouth every 8 (eight) hours as needed for Nausea and Vomiting (N/V). [facility] clotrimazol e-betametha sone 1 %-0.05 % topical cream - 00:00: 00 Yes % Will Eden olanzapine 10 mg tablet - 00:00: 00 Yes mg Will Eden buspirone 15 mg tablet -09 00:00: 00 Yes 1mg Will Eden quetiapine ER 50 mg tablet,exte nded release 24 hr - 00:00: 00 Yes 12mg Will Eden hydroxyzine HCl 50 mg tablet - 00:00: 00 Yes 12mg Will Eden olanzapine 10 mg tablet 2023-0518 00:00: 00 Yes mg Will Eden olanzapine 10 mg tablet 2023-05- 00:00: 00 Yes mg Will Eden buspirone 15 mg tablet 2024-1 0-24 00:00: 00 Yes 1mg Will Eden quetiapine ER 50 mg tablet,exte nded release 24 hr 2023-05 0-24 00:00: 00 Yes 12mg Will Eden hydroxyzine HCl 50 mg tablet 2023-05 0-24 00:00: 00 Yes 12mg Will Eden buspirone 15 mg tablet 0 8-30 00:00: 00 Yes 1mg Will Eden olanzapine 10 mg tablet 8- 00:00: 00 Yes mg Will Eden quetiapine ER 50 mg tablet,exte nded release 24 hr 0 8- 00:00: 00 Yes 12mg Will Eden hydroxyzine HCl 50 mg tablet 8 00:00: 00 Yes 12mg Will Eden olanzapine 10 mg tablet 8- 00:00: 00 Yes mg Will Eden hydroxyzine HCl 50 mg tablet 8- 00:00: 00 Yes mg Will Eden buspirone 15 mg tablet 8- 00:00: 00 Yes mg Will Eden quetiapine ER 50 mg tablet,exte nded release 24 hr 8- 00:00: 00 Yes mg Will Eden olanzapine 10 mg tablet 18 00:00: 00 Yes mg Will Eden buspirone 15 mg tablet 718 00:00: 00 Yes mg Will Eden amoxicillin 500 mg tablet 10-29 00:00: 00 10-29 00:00 :00 No [id number] 1000mg Take 2 tablets by mouth in the morning. [facility] olanzapine 10 mg tablet 18 00:00: 00 Yes mg Will Eden hydroxyzine HCl 50 mg tablet 6-18 00:00: 00 Yes mg Will [facility] buspirone 15 mg tablet 6-18 00:00: 00 Yes mg Will Eden quetiapine ER 50 mg tablet,exte nded release 24 hr 0 6-18 00:00: 00 Yes mg Will Eden iopamidol (ISOVUE 370-500 mL) injection 100 mL 10-10 08:00: 00 10-10 08:00 :00 No [id number] 100mL 100 mL, Intravenou s, ONCE, 1 dose, On Wed10/11/23 at 0300, Routine [facility] NaCl 0.9% (NS) bolus infusion 1,000 mL 10-10 05:15: 00 10-10 06:27 :00 No 1000mL at 999 mL/hr, 1,000 mL, IV Infusion, ONCE, 1 dose, On Wed10/11/23 at 0015, [facility] famotidine (PEPCID (PF)) injection 20 mg 10-10 04:45: 00 10-10 04:49 :00 No 20mg 20 mg, Slow IV Push, ONCE, 1 dose, On Wed10/10/23 at 2345, [facility] ondansetron (ZOFRAN (PF)) injection 4 mg 10-10 04:30: 00 10-10 04:49 :00 No 4mg 4 mg, Slow IV Push, ONCE, 1 dose, On Wed10/10/23 at 2330, [facility] olanzapine 10 mg tablet 10-10 00:00: 00 Yes mg Will Jose Eden hydroxyzine HCl 50 mg tablet 10-10 00:00: 00 Yes mg Will [facility] buspirone 15 mg tablet 10-10 00:00: 00 Yes mg Will Eden quetiapine ER 50 mg tablet,exte nded release 24 hr 10-10 00:00: 00 Yes mg Will Jose Eden ondansetron 4 mg disintegrat ing tablet 10-10 00:00: 00 07-03 00:00 :00 No [id number] 4mg Take 1 tablet by mouth every 8 (eight) hours as needed for Nausea and Vomiting (N/V). [facility] cefTRIAXone (ROCEPHIN) injection 1,000 mg 15 15:00: 00 09-22 02:59 :00 No [id number] 1000mg [facility] cefTRIAXone (ROCEPHIN) injection 1,000 mg 09-21 00:15: 00 09-20 23:40 :58 No [id number] 1000mg [facility] mupirocin 2 % ointment 09-20 00:00: 00 02-07 00:00 :00 No [id number] Apply to area(s) 3 (three) times daily. [facility] doxycycline hyclate 100 mg tablet 09-20 00:00: 00 09-28 04:59 :00 No [id number] 100mg Take 1 tablet by mouth in the morning and 1 tablet in the evening. Do all this for 7 days. [facility] albuterol 90 mcg/actuati on inhaler 08-04 00:00: 00 Yes [id number] 2{puff} Inhale 2 Puffs every 6 (six) hours as needed for Shortness of Breath. [facility] TAKE 5 ML BY MOUTH THREE TIMES DAILY NEEDED FOR COLD SYMPTOMS OR COUGH 08-04 00:00: 00 Yes Will Jose Meek ALBUTEROL HFA 90 MCG INHALER 08-04 00:00: 00 Yes Will Jose Meek bromphenira mine-pseudo ephedrine-D M (BROMFED DM) 2-30-10 mg/5 mL syrup 08-04 00:00: 00 10-10 00:00 :00 No [id number] 5mL Take 5 mL by mouth 3 (three) times daily as needed for Cold symptoms or Cough. [facility] buspirone 15 mg tablet 07-30 00:00: 00 Yes mg Will Jsoe Meek quetiapine ER 50 mg tablet,exte nded release 24 hr 07-30 00:00: 00 Yes mg Will Jose Eden olanzapine 10 mg tablet 07-30 00:00: 00 Yes mg Justicehen Jose Meek hydroxyzine HCl 50 mg tablet 07-30 00:00: 00 Yes mg Justicehen Jose Meek ibuprofen 600 mg tablet - 00:00: 00 Yes mg Will Eden quetiapine ER 50 mg tablet,exte nded release 24 hr 218 00:00: 00 Yes mg Will Eden hydroxyzine HCl 50 mg tablet 06-09 00:00: 00 Yes Will [facility] quetiapine ER 50 mg tablet,exte nded release 24 hr 06-09 00:00: 00 Yes Will [facility] olanzapine 10 mg tablet 06-09 00:00: 00 Yes mg Will Eden TAKE 1 TABLET TWICE DAILY. 06-09 00:00: 00 09-20 00:00 :00 No 15 Will Jose Eden APPLY SPARINGLY TO THE AFFECTED AREA(S) TWICE DAILY. 06-09 00:00: 00 09-20 00:00 :00 No 1005 Will Eden TAKE 1 OR 2 TABLETS AT BEDTIME NEEDED FOR SLEEP. 06-09 00:00: 00 09-20 00:00 :00 No 50 Will Eden TAKE 1 OR 2 TABLETS AT BEDTIME NEEDED FOR SLEEP. 06-07 00:00: 00 09-20 00:00 :00 No 50 Will Eden TAKE 1 TABLET AT BEDTIME. 06-07 00:00: 00 09-20 00:00 :00 No 10 Will [facility] hydroxyzine HCl 50 mg tablet 06-01 00:00: 00 Yes mg Will Eden clotrimazol e-betametha sone 1 %-0.05 % topical cream 06-01 00:00: 00 Yes % Will Eden buspirone 15 mg tablet 05-31 00:00: 00 Yes mg Will Eden TAKE 1 TO 2 TABLETS BY MOUTH AT BEDTIME NEEDED FOR SLEEP 05-31 00:00: 00 Yes Will Eden TAKE 1 OR 2 TABLETS AT BEDTIME NEEDED FOR SLEEP. 05-31 00:00: 00 09-20 00:00 :00 No 50 Will Eden TAKE 1 TABLET AT BEDTIME. 05-31 00:00: 00 09-20 00:00 :00 No 10 Will Eden TAKE ONE TABLET BY MOUTH UP TO THREE TIMES A DAY FOR ANXIETY AND SLEEP NEEDED 05-31 00:00: 00 09-20 00:00 :00 No 50 Will F Meek TAKE 1 OR 2 TABLETS AT BEDTIME NEEDED FOR SLEEP. 2022-05 00:00: 00 09-20 00:00 :00 No 50 Will Eden QUETIAPINE FUMARATE ER 50 MG TB24 2022-05 00:00: 00 09-20 00:00 :00 No Will Eden TAKE 1 TABLET AT BEDTIME. 2022-05 00:00: 00 09-20 00:00 :00 No 10 Will Eden TAKE 1 TABLET TWICE DAILY. 2022-05 00:00: 00 09-20 00:00 :00 No 5 Will Jose Eden TRAZODONE HYDROCHLORI DE 100 MG TABS 2022-05 00:00: 00 09-20 00:00 :00 No Will F Meek BUSPIRONE HCL 15 MG TABS 2022-05 00:00: 00 09-20 00:00 :00 No Will Eden TAKE ONE TABLET BY MOUTH UP TO THREE TIMES A DAY FOR ANXIETY AND SLEEP NEEDED 2022-05 00:00: 00 09-20 00:00 :00 No 50 Will Eden TAKE ONE TABLET BY MOUTH UP TO THREE TIMES A DAY FOR ANXIETY AND SLEEP NEEDED 2022-05 00:00: 00 09-20 00:00 :00 No 50 Will Eden TAKE 1 TABLET AT BEDTIME. 2022-05 00:00: 00 09-20 00:00 :00 No 100 Will F Meek TAKE 1/2 TAB BY MOUTH FOR 1 WEEK. THEN TAKE 1 TAB BY MOUTH DAILY 2022-05 00:00: 00 09-20 00:00 :00 No 50 Will F Meek TAKE 1 TABLET BY MOUTH TWICE DAILY 2022-05 00:00: 00 09-20 00:00 :00 No Will F Meek TAKE 1 TABLET BY MOUTH TWICE DAILY (IN THE MORNING AND AT NIGHT) 10-15 00:00: 09-20 00:00 :00 Blanca Eden TAKE 1 TABLET BY MOUTH AT BEDTIME 10-15 00:00: 00 09-20 00:00 :00 Blanca Eden TAKE 1 TABLET BY MOUTH AT BEDTIME 10-13 00:00: 00 09-20 00:00 :00 Blanca Eden TAKE 1 TABLET BY MOUTH THREE TIMES DAILY 10-13 00:00: 00 09-20 00:00 :00 Blanca Eden ondansetron 4 mg disintegrat ing tablet 08-06 00:00: 00 08-12 04:59 :00 No [id number] 4mg Take 1 tablet by mouth every 8 (eight) hours as needed for Nausea and Vomiting (N/V) for up to 5 days. [facility] TAKE 1 CAPSULE BY MOUTH TWICE DAILY NEEDED FOR ANXIETY AND FOR INSOMNIA 2021-05 00:00: 00 09-20 00:00 :00 Blanca Eden TAKE 1 TABLET BY MOUTH TWICE DAILY 2021-05 00:00: 00 09-20 00:00 :00 Blanca Eden TAKE 1 TABLET BY MOUTH AT BEDTIME 2021-05 00:00: 00 09-20 00:00 :00 No Will Eden albuterol 90 mcg/actuati on inhaler 01-26 00:00: 00 Yes [id number] 2{puff} Inhale 2 Puffs every 6 (six) hours as needed for Shortness of Breath. [facility] bromphenira mine-pseudo ephedrine-D M (BROMFED DM) 2-30-10 mg/5 mL syrup 01-26 00:00: 00 10-10 00:00 :00 No [id number] 5mL Take 5 mL by mouth 4 (four) times daily as needed for Congestion /Allergies . [facility] ondansetron 4 mg disintegrat ing tablet 01-26 00:00: 00 10-10 00:00 :00 No [id number] 4mg Take 1 tablet by mouth every 8 (eight) hours as needed for Nausea and Vomiting (N/V). [facility] amoxicillin 500 mg tablet 09-29 00:00: 00 10-10 04:59 :00 No [id number] 1000mg Take 2 tablets by mouth daily for 10 days. [facility] FLUoxetine 20 mg capsule 02-03 00:00: 00 Yes 20mg Take 20 mg by mouth. [facility] ondansetron 4 mg disintegrat ing tablet 12-29 00:00: 00 10-10 00:00 :00 No [id number] 4mg Take 1 tablet by mouth every 8 (eight) hours as needed for Nausea and Vomiting (N/V). [facility] budesonide- formoteroL 80-4.5 mcg/actuati on inhaler 12-27 00:00: 00 Yes [id number] 2{puff} Inhale 2 Puffs 2 (two) times daily. [facility] bromphenira mine-pseudo ephedrine-D M (BROMFED DM) 2-30-10 mg/5 mL syrup 12-27 00:00: 00 01-26 00:00 :00 No [id number] 5mL Take 5 mL by mouth 4 (four) times daily as needed for Congestion /Allergies or Cough. [facility] busPIRone 15 mg tablet 09-12 00:00: 00 Yes [facility] fluoxetine HCl (FLUOXETINE ORAL) 01-15 15:04: 34 Yes Take by mouth. [facility] hydrOXYzine 25 mg tablet 01-15 00:00: 00 01-26 00:00 :00 No [id number] 1-2 tabs Every 3-6hr as needed for nausea dyspnea. [facility] buspirone 5 mg tablet 12-15 00:00: 00 Yes 1mg Will Eden Zofran 4 mg tablet 12-15 00:00: 00 Yes 1mg Will [facility] ondansetron 4 mg disintegrat ing tablet 808 00:00: 00 Yes 1mg Will Eden fluoxetine 10 mg tablet 12-01 00:00: 00 Yes 1mg Will Eden OLANZapine ZYDIS 5 mg disintegrat ing tablet 7-13 00:00: 00 10-10 00:00 :00 No [id number] 5mg Take 1 tablet by mouth daily. [facility] albuterol 90 mcg/actuati on inhaler 10-03 00:00: 00 01-26 00:00 :00 No 2{puff} Inhale 2 Puffs every 4 (four) hours as needed for Wheezing or Shortness of Breath. [facility] Immunizations Ordered Immunization Name Filled Immunization Name Date Status Comments Source HEPATITIS A 2023-10-30 19:20:00 Completed [facility] HPV 2023-10-30 19:20:00 Completed [facility] Hep B, Adol or Pedi Dosage 2023-10-30 19:20:00 Completed [facility] MMR 2023-10-30 19:20:00 Completed [facility] Polio (IPV/OPV) 2023-10-30 19:20:00 Completed [facility] TDAP 2023-10-30 19:20:00 Completed [facility] Varicella (varivax)(chicken pox) 2023-10-30 19:20:00 Completed [facility] Pneumococcal 7 Conjugate, PCV7 (Prevnar7) 2023-10-30 19:20:00 Completed [facility] Meningococcal Polysaccharide (groups A, C, Y and W-135) conjugate vaccine (MCV4P) 2023-10-30 19:20:00 Completed [facility] Meningococcal B, OMV 2023-10-30 19:20:00 Completed [facility] HPV9 2023-10-30 19:20:00 Completed [facility] Meningococcal Vaccine 2023-10-30 19:20:00 Completed [facility] DTAP 2023-10-30 19:20:00 Completed [facility] HIB 4 Dose Schedule 2023-10-30 19:20:00 Completed [facility] Influenza Virus Vaccine Quad .5 mL IM 6+ MO (FLUZONE/FLULAVAL/FLU ARIX) 2023-10-30 19:20:00 Completed [facility] HEPATITIS A 2023-10-10 23:28:00 Completed [facility] HPV 2023-10-10 23:28:00 Completed [facility] Hep B, Adol or Pedi Dosage 2023-10-10 23:28:00 Completed [facility] MMR 2023-10-10 23:28:00 Completed [facility] Polio (IPV/OPV) 2023-10-10 23:28:00 Completed [facility] TDAP 2023-10-10 23:28:00 Completed [facility] Varicella (varivax)(chicken pox) 2023-10-10 23:28:00 Completed [facility] Pneumococcal 7 Conjugate, PCV7 (Prevnar7) 2023-10-10 23:28:00 Completed [facility] Meningococcal Polysaccharide (groups A, C, Y and W-135) conjugate vaccine (MCV4P) 2023-10-10 23:28:00 Completed [facility] Meningococcal B, OMV 2023-10-10 23:28:00 Completed [facility] HPV9 2023-10-10 23:28:00 Completed [facility] Meningococcal Vaccine 2023-10-10 23:28:00 Completed [facility] DTAP 2023-10-10 23:28:00 Completed [facility] HIB 4 Dose Schedule 2023-10-10 23:28:00 Completed [facility] Influenza Virus Vaccine Quad .5 mL IM 6+ MO (FLUZONE/FLULAVAL/FLU ARIX) 2023-10-10 23:28:00 Completed [facility] HEPATITIS A 2023-09-27 17:14:00 Completed [facility] HPV 2023-09-27 17:14:00 Completed [facility] Hep B, Adol or Pedi Dosage 2023-09-27 17:14:00 Completed [facility] MMR 2023-09-27 17:14:00 Completed [facility] Polio (IPV/OPV) 2023-09-27 17:14:00 Completed [facility] TDAP 2023-09-27 17:14:00 Completed [facility] Varicella (varivax)(chicken pox) 2023-09-27 17:14:00 Completed [facility] Pneumococcal 7 Conjugate, PCV7 (Prevnar7) 2023-09-27 17:14:00 Completed [facility] Meningococcal Polysaccharide (groups A, C, Y and W-135) conjugate vaccine (MCV4P) 2023-09-27 17:14:00 Completed [facility] Meningococcal B, OMV 2023-09-27 17:14:00 Completed [facility] HPV9 2023-09-27 17:14:00 Completed [facility] Meningococcal Vaccine 2023-09-27 17:14:00 Completed [facility] DTAP 2023-09-27 17:14:00 Completed [facility] HIB 4 Dose Schedule 2023-09-27 17:14:00 Completed [facility] Influenza Virus Vaccine Quad .5 mL IM 6+ MO (FLUZONE/FLULAVAL/FLU ARIX) 2023-09-27 17:14:00 Completed [facility] HEPATITIS A 2023-09-27 16:40:00 Completed [facility] HPV 2023-09-27 16:40:00 Completed [facility] Hep B, Adol or Pedi Dosage 2023-09-27 16:40:00 Completed [facility] MMR 2023-09-27 16:40:00 Completed [facility] Polio (IPV/OPV) 2023-09-27 16:40:00 Completed [facility] TDAP 2023-09-27 16:40:00 Completed [facility] Varicella (varivax)(chicken pox) 2023-09-27 16:40:00 Completed [facility] Pneumococcal 7 Conjugate, PCV7 (Prevnar7) 2023-09-27 16:40:00 Completed [facility] Meningococcal Polysaccharide (groups A, C, Y and W-135) conjugate vaccine (MCV4P) 2023-09-27 16:40:00 Completed [facility] Meningococcal B, OMV 2023-09-27 16:40:00 Completed [facility] HPV9 2023-09-27 16:40:00 Completed [facility] Meningococcal Vaccine 2023-09-27 16:40:00 Completed [facility] DTAP 2023-09-27 16:40:00 Completed [facility] HIB 4 Dose Schedule 2023-09-27 16:40:00 Completed [facility] Influenza Virus Vaccine Quad .5 mL IM 6+ MO (FLUZONE/FLULAVAL/FLU ARIX) 2023-09-27 16:40:00 Completed [facility] HPV 2023-09-21 18:00:00 Completed [facility] TDAP 2023-09-21 18:00:00 Completed [facility] Pneumococcal 7 Conjugate, PCV7 (Prevnar7) 2023-09-21 18:00:00 Completed [facility] Meningococcal Polysaccharide (groups A, C, Y and W-135) conjugate vaccine (MCV4P) 2023-09-21 18:00:00 Completed [facility] Meningococcal B, OMV 2023-09-21 18:00:00 Completed [facility] HPV9 2023-09-21 18:00:00 Completed [facility] Meningococcal Vaccine 2023-09-21 18:00:00 Completed [facility] Influenza Virus Vaccine Quad .5 mL IM 6+ MO (FLUZONE/FLULAVAL/FLU ARIX) 2023-09-21 18:00:00 Completed [facility] HEPATITIS A 2023-09-21 18:00:00 Completed [facility] Hep B, Adol or Pedi Dosage 2023-09-21 18:00:00 Completed [facility] MMR 2023-09-21 18:00:00 Completed [facility] Polio (IPV/OPV) 2023-09-21 18:00:00 Completed [facility] Varicella (varivax)(chicken pox) 2023-09-21 18:00:00 Completed [facility] DTAP 2023-09-21 18:00:00 Completed [facility] HIB 4 Dose Schedule 2023-09-21 18:00:00 Completed [facility] HPV 2023-08-05 19:40:00 Completed [facility] TDAP 2023-08-05 19:40:00 Completed [facility] Pneumococcal 7 Conjugate, PCV7 (Prevnar7) 2023-08-05 19:40:00 Completed [facility] Meningococcal Polysaccharide (groups A, C, Y and W-135) conjugate vaccine (MCV4P) 2023-08-05 19:40:00 Completed [facility] Meningococcal B, OMV 2023-08-05 19:40:00 Completed [facility] HPV9 2023-08-05 19:40:00 Completed [facility] Meningococcal Vaccine 2023-08-05 19:40:00 Completed [facility] Influenza Virus Vaccine Quad .5 mL IM 6+ MO (FLUZONE/FLULAVAL/FLU ARIX) 2023-08-05 19:40:00 Completed [facility] HEPATITIS A 2023-08-05 19:40:00 Completed [facility] Hep B, Adol or Pedi Dosage 2023-08-05 19:40:00 Completed [facility] MMR 2023-08-05 19:40:00 Completed [facility] Polio (IPV/OPV) 2023-08-05 19:40:00 Completed [facility] Varicella (varivax)(chicken pox) 2023-08-05 19:40:00 Completed [facility] DTAP 2023-08-05 19:40:00 Completed [facility] HIB 4 Dose Schedule 2023-08-05 19:40:00 Completed [facility] HEPATITIS A 2020-12-29 00:00:00 Completed [facility] HPV 2020-12-29 00:00:00 Completed [facility] Hep B, Adol or Pedi Dosage 2020-12-29 00:00:00 Completed [facility] MMR 2020-12-29 00:00:00 Completed [facility] Polio (IPV/OPV) 2020-12-29 00:00:00 Completed [facility] TDAP 2020-12-29 00:00:00 Completed [facility] Varicella (varivax)(chicken pox) 2020-12-29 00:00:00 Completed [facility] Pneumococcal 7 Conjugate, PCV7 (Prevnar7) 2020-12-29 00:00:00 Completed [facility] Meningococcal Polysaccharide (groups A, C, Y and W-135) conjugate vaccine (MCV4P) 2020-12-29 00:00:00 Completed [facility] Meningococcal B, OMV 2020-12-29 00:00:00 Completed [facility] HPV9 2020-12-29 00:00:00 Completed [facility] Meningococcal Vaccine 2020-12-29 00:00:00 Completed [facility] DTAP 2020-12-29 00:00:00 Completed [facility] HIB 4 Dose Schedule 2020-12-29 00:00:00 Completed [facility] Influenza Virus Vaccine Quad .5 mL IM 6+ MO (FLUZONE/FLULAVAL/FLU ARIX) 2020-12-29 00:00:00 Completed [facility] Meningococcal Polysaccharide (groups A, C, Y and W-135) conjugate vaccine (MCV4P) 2018-02-18 00:00:00 Completed [facility] Meningococcal B, OMV 2018-02-18 00:00:00 Completed [facility] HPV9 2018-02-18 00:00:00 Completed [facility] Influenza Virus Vaccine Quad .5 mL IM 6+ MO 2018-02-18 00:00:00 Completed [facility] Meningococcal Polysaccharide (groups A, C, Y and W-135) conjugate vaccine (MCV4P) 2018-02-18 00:00:00 Completed [facility] Meningococcal B, OMV 2018-02-18 00:00:00 Completed [facility] HPV9 2018-02-18 00:00:00 Completed [facility] Influenza Virus Vaccine Quad .5 mL IM 6+ MO 2018-02-18 00:00:00 Completed [facility] Meningococcal Polysaccharide (groups A, C, Y and W-135) conjugate vaccine (MCV4P) 2018-02-18 00:00:00 Completed [facility] Meningococcal B, OMV 2018-02-18 00:00:00 Completed [facility] HPV9 2018-02-18 00:00:00 Completed [facility] Influenza Virus Vaccine Quad .5 mL IM 6+ MO 2018-02-18 00:00:00 Completed [facility] Meningococcal Polysaccharide (groups A, C, Y and W-135) conjugate vaccine (MCV4P) 2018-02-18 00:00:00 Completed [facility] Meningococcal B, OMV 2018-02-18 00:00:00 Completed [facility] HPV9 2018-02-18 00:00:00 Completed [facility] Influenza Virus Vaccine Quad .5 mL IM 6+ MO 2018-02-18 00:00:00 Completed [facility] Meningococcal Polysaccharide (groups A, C, Y and W-135) conjugate vaccine (MCV4P) 2018-02-18 00:00:00 Completed [facility] Meningococcal B, OMV 2018-02-18 00:00:00 Completed [facility] HPV9 2018-02-18 00:00:00 Completed [facility] Influenza Virus Vaccine Quad .5 mL IM 6+ MO 2018-02-18 00:00:00 Completed [facility] Meningococcal Polysaccharide (groups A, C, Y and W-135) conjugate vaccine (MCV4P) 2018-02-18 00:00:00 Completed [facility] Meningococcal B, OMV 2018-02-18 00:00:00 Completed [facility] HPV9 2018-02-18 00:00:00 Completed [facility] Influenza Virus Vaccine Quad .5 mL IM 6+ MO 2018-02-18 00:00:00 Completed [facility] Meningococcal Polysaccharide (groups A, C, Y and W-135) conjugate vaccine (MCV4P) 2018-02-18 00:00:00 Completed [facility] Meningococcal B, OMV 2018-02-18 00:00:00 Completed [facility] HPV9 2018-02-18 00:00:00 Completed [facility] Influenza Virus Vaccine Quad .5 mL IM 6+ MO 2018-02-18 00:00:00 Completed [facility] Meningococcal Polysaccharide (groups A, C, Y and W-135) conjugate vaccine (MCV4P) 2018-02-18 00:00:00 Completed [facility] Meningococcal B, OMV 2018-02-18 00:00:00 Completed [facility] HPV9 2018-02-18 00:00:00 Completed [facility] Influenza Virus Vaccine Quad .5 mL IM 6+ MO 2018-02-18 00:00:00 Completed [facility] Meningococcal Polysaccharide (groups A, C, Y and W-135) conjugate vaccine (MCV4P) 2018-02-18 00:00:00 Completed [facility] Meningococcal B, OMV 2018-02-18 00:00:00 Completed [facility] HPV9 2018-02-18 00:00:00 Completed [facility] Influenza Virus Vaccine Quad .5 mL IM 6+ MO 2018-02-18 00:00:00 Completed [facility] Meningococcal Polysaccharide (groups A, C, Y and W-135) conjugate vaccine (MCV4P) 2018-02-18 00:00:00 Completed [facility] Meningococcal B, OMV 2018-02-18 00:00:00 Completed [facility] HPV9 2018-02-18 00:00:00 Completed [facility] Influenza Virus Vaccine Quad .5 mL IM 6+ MO 2018-02-18 00:00:00 Completed [facility] Meningococcal Polysaccharide (groups A, C, Y and W-135) conjugate vaccine (MCV4P) 2018-02-18 00:00:00 Completed [facility] Meningococcal B, OMV 2018-02-18 00:00:00 Completed [facility] HPV9 2018-02-18 00:00:00 Completed [facility] Influenza Virus Vaccine Quad .5 mL IM 6+ MO 2018-02-18 00:00:00 Completed [facility] Meningococcal Polysaccharide (groups A, C, Y and W-135) conjugate vaccine (MCV4P) 2018-02-18 00:00:00 Completed [facility] Meningococcal B, OMV 2018-02-18 00:00:00 Completed [facility] HPV9 2018-02-18 00:00:00 Completed [facility] Influenza Virus Vaccine Quad .5 mL IM 6+ MO 2018-02-18 00:00:00 Completed [facility] Meningococcal Polysaccharide (groups A, C, Y and W-135) conjugate vaccine (MCV4P) 2018-02-18 00:00:00 Completed [facility] Meningococcal B, OMV 2018-02-18 00:00:00 Completed [facility] HPV9 2018-02-18 00:00:00 Completed [facility] Influenza Virus Vaccine Quad .5 mL IM 6+ MO 2018-02-18 00:00:00 Completed [facility] Meningococcal Polysaccharide (groups A, C, Y and W-135) conjugate vaccine (MCV4P) 2018-02-18 00:00:00 Completed [facility] Meningococcal B, OMV 2018-02-18 00:00:00 Completed [facility] HPV9 2018-02-18 00:00:00 Completed [facility] Influenza Virus Vaccine Quad .5 mL IM 6+ MO 2018-02-18 00:00:00 Completed [facility] Meningococcal Polysaccharide (groups A, C, Y and W-135) conjugate vaccine (MCV4P) 2018-02-18 00:00:00 Completed [facility] Meningococcal B, OMV 2018-02-18 00:00:00 Completed [facility] HPV9 2018-02-18 00:00:00 Completed [facility] Influenza Virus Vaccine Quad .5 mL IM 6+ MO 2018-02-18 00:00:00 Completed [facility] Meningococcal Polysaccharide (groups A, C, Y and W-135) conjugate vaccine (MCV4P) 2018-02-18 00:00:00 Completed [facility] Meningococcal B, OMV 2018-02-18 00:00:00 Completed [facility] HPV9 2018-02-18 00:00:00 Completed [facility] Influenza Virus Vaccine Quad .5 mL IM 6+ MO 2018-02-18 00:00:00 Completed [facility] Meningococcal Polysaccharide (groups A, C, Y and W-135) conjugate vaccine (MCV4P) 2018-02-18 00:00:00 Completed [facility] Meningococcal B, OMV 2018-02-18 00:00:00 Completed [facility] HPV9 2018-02-18 00:00:00 Completed [facility] Influenza Virus Vaccine Quad .5 mL IM 6+ MO 2018-02-18 00:00:00 Completed [facility] Meningococcal Polysaccharide (groups A, C, Y and W-135) conjugate vaccine (MCV4P) 2018-02-18 00:00:00 Completed [facility] Meningococcal B, OMV 2018-02-18 00:00:00 Completed [facility] HPV9 2018-02-18 00:00:00 Completed [facility] Influenza Virus Vaccine Quad .5 mL IM 6+ MO 2018-02-18 00:00:00 Completed [facility] HPV 2014-12-31 00:00:00 Completed [facility] TDAP 2014-12-31 00:00:00 Completed [facility] Meningococcal Vaccine 2014-12-31 00:00:00 Completed [facility] HPV 2014-12-31 00:00:00 Completed [facility] TDAP 2014-12-31 00:00:00 Completed [facility] Meningococcal Vaccine 2014-12-31 00:00:00 Completed [facility] HPV 2014-12-31 00:00:00 Completed [facility] TDAP 2014-12-31 00:00:00 Completed [facility] Meningococcal Vaccine 2014-12-31 00:00:00 Completed [facility] HPV 2014-12-31 00:00:00 Completed [facility] TDAP 2014-12-31 00:00:00 Completed [facility] Meningococcal Vaccine 2014-12-31 00:00:00 Completed [facility] HPV 2014-12-31 00:00:00 Completed [facility] TDAP 2014-12-31 00:00:00 Completed [facility] Meningococcal Vaccine 2014-12-31 00:00:00 Completed [facility] HPV 2014-12-31 00:00:00 Completed [facility] TDAP 2014-12-31 00:00:00 Completed [facility] Meningococcal Vaccine 2014-12-31 00:00:00 Completed [facility] HPV 2014-12-31 00:00:00 Completed [facility] TDAP 2014-12-31 00:00:00 Completed [facility] Meningococcal Vaccine 2014-12-31 00:00:00 Completed [facility] HPV 2014-12-31 00:00:00 Completed [facility] TDAP 2014-12-31 00:00:00 Completed [facility] Meningococcal Vaccine 2014-12-31 00:00:00 Completed [facility] HPV 2014-12-31 00:00:00 Completed [facility] TDAP 2014-12-31 00:00:00 Completed [facility] Meningococcal Vaccine 2014-12-31 00:00:00 Completed [facility] HPV 2014-12-31 00:00:00 Completed [facility] TDAP 2014-12-31 00:00:00 Completed [facility] Meningococcal Vaccine 2014-12-31 00:00:00 Completed [facility] HPV 2014-12-31 00:00:00 Completed [facility] TDAP 2014-12-31 00:00:00 Completed [facility] Meningococcal Vaccine 2014-12-31 00:00:00 Completed [facility] HPV 2014-12-31 00:00:00 Completed [facility] TDAP 2014-12-31 00:00:00 Completed [facility] Meningococcal Vaccine 2014-12-31 00:00:00 Completed [facility] HPV 2014-12-31 00:00:00 Completed [facility] TDAP 2014-12-31 00:00:00 Completed [facility] Meningococcal Vaccine 2014-12-31 00:00:00 Completed [facility] HPV 2014-12-31 00:00:00 Completed [facility] TDAP 2014-12-31 00:00:00 Completed [facility] Meningococcal Vaccine 2014-12-31 00:00:00 Completed [facility] HPV 2014-12-31 00:00:00 Completed [facility] TDAP 2014-12-31 00:00:00 Completed [facility] Meningococcal Vaccine 2014-12-31 00:00:00 Completed [facility] HPV 2014-12-31 00:00:00 Completed [facility] TDAP 2014-12-31 00:00:00 Completed [facility] Meningococcal Vaccine 2014-12-31 00:00:00 Completed [facility] HPV 2014-12-31 00:00:00 Completed [facility] TDAP 2014-12-31 00:00:00 Completed [facility] Meningococcal Vaccine 2014-12-31 00:00:00 Completed [facility] HPV 2014-12-31 00:00:00 Completed [facility] TDAP 2014-12-31 00:00:00 Completed [facility] Meningococcal Vaccine 2014-12-31 00:00:00 Completed [facility] Polio (IPV/OPV) 2008-06-21 00:00:00 Completed [facility] Polio (IPV/OPV) 2008-06-21 00:00:00 Completed [facility] Polio (IPV/OPV) 2008-06-21 00:00:00 Completed [facility] Polio (IPV/OPV) 2008-06-21 00:00:00 Completed [facility] Polio (IPV/OPV) 2008-06-21 00:00:00 Completed [facility] Polio (IPV/OPV) 2008-06-21 00:00:00 Completed [facility] Polio (IPV/OPV) 2008-06-21 00:00:00 Completed [facility] Polio (IPV/OPV) 2008-06-21 00:00:00 Completed [facility] Polio (IPV/OPV) 2008-06-21 00:00:00 Completed [facility] Polio (IPV/OPV) 2008-06-21 00:00:00 Completed [facility] Polio (IPV/OPV) 2008-06-21 00:00:00 Completed [facility] Polio (IPV/OPV) 2008-06-21 00:00:00 Completed [facility] Polio (IPV/OPV) 2008-06-21 00:00:00 Completed [facility] Polio (IPV/OPV) 2008-06-21 00:00:00 Completed [facility] Polio (IPV/OPV) 2008-06-21 00:00:00 Completed [facility] Polio (IPV/OPV) 2008-06-21 00:00:00 Completed [facility] Polio (IPV/OPV) 2008-06-21 00:00:00 Completed [facility] Polio (IPV/OPV) 2008-06-21 00:00:00 Completed [facility] Varicella (varivax)(chicken pox) 2006-12-16 00:00:00 Completed [facility] HEPATITIS A 2006-12-16 00:00:00 Completed [facility] Varicella (varivax)(chicken pox) 2006-12-16 00:00:00 Completed [facility] HEPATITIS A 2006-12-16 00:00:00 Completed Varicella (varivax)(chicken pox) 2006-12-16 00:00:00 Completed HEPATITIS A 2006-12-16 00:00:00 Completed [facility] Varicella (varivax)(chicken pox) 2006-12-16 00:00:00 Completed [facility] HEPATITIS A 2006-12-16 00:00:00 Completed [facility] Varicella (varivax)(chicken pox) 2006-12-16 00:00:00 Completed [facility] HEPATITIS A 2006-12-16 00:00:00 Completed [facility] Varicella (varivax)(chicken pox) 2006-12-16 00:00:00 Completed [facility] HEPATITIS A 2006-12-16 00:00:00 Completed [facility] Varicella (varivax)(chicken pox) 2006-12-16 00:00:00 Completed [facility] HEPATITIS A 2006-12-16 00:00:00 Completed [facility] Varicella (varivax)(chicken pox) 2006-12-16 00:00:00 Completed [facility] HEPATITIS A 2006-12-16 00:00:00 Completed [facility] Varicella (varivax)(chicken pox) 2006-12-16 00:00:00 Completed [facility] HEPATITIS A 2006-12-16 00:00:00 Completed [facility] Varicella (varivax)(chicken pox) 2006-12-16 00:00:00 Completed [facility] HEPATITIS A 2006-12-16 00:00:00 Completed [facility] Varicella (varivax)(chicken pox) 2006-12-16 00:00:00 Completed [facility] HEPATITIS A 2006-12-16 00:00:00 Completed [facility] Varicella (varivax)(chicken pox) 2006-12-16 00:00:00 Completed [facility] HEPATITIS A 2006-12-16 00:00:00 Completed [facility] Varicella (varivax)(chicken pox) 2006-12-16 00:00:00 Completed [facility] HEPATITIS A 2006-12-16 00:00:00 Completed [facility] Varicella (varivax)(chicken pox) 2006-12-16 00:00:00 Completed [facility] HEPATITIS A 2006-12-16 00:00:00 Completed [facility] Varicella (varivax)(chicken pox) 2006-12-16 00:00:00 Completed [facility] HEPATITIS A 2006-12-16 00:00:00 Completed [facility] Varicella (varivax)(chicken pox) 2006-12-16 00:00:00 Completed [facility] HEPATITIS A 2006-12-16 00:00:00 Completed [facility] Varicella (varivax)(chicken pox) 2006-12-16 00:00:00 Completed [facility] HEPATITIS A 2006-12-16 00:00:00 Completed [facility] Varicella (varivax)(chicken pox) 2006-12-16 00:00:00 Completed [facility] HEPATITIS A 2006-12-16 00:00:00 Completed [facility] Varicella (varivax)(chicken pox) 2006-12-16 00:00:00 Completed [facility] HEPATITIS A 2006-12-16 00:00:00 Completed [facility] HEPATITIS A 2006-02-11 00:00:00 Completed [facility] MMR 2006-02-11 00:00:00 Completed [facility] Polio (IPV/OPV) 2006-02-11 00:00:00 Completed [facility] Pneumococcal 7 Conjugate, PCV7 (Prevnar7) 2006-02-11 00:00:00 Completed [facility] DTAP 2006-02-11 00:00:00 Completed [facility] HEPATITIS A 2006-02-11 00:00:00 Completed [facility] MMR 2006-02-11 00:00:00 Completed [facility] Polio (IPV/OPV) 2006-02-11 00:00:00 Completed [facility] Pneumococcal 7 Conjugate, PCV7 (Prevnar7) 2006-02-11 00:00:00 Completed [facility] DTAP 2006-02-11 00:00:00 Completed [facility] HEPATITIS A 2006-02-11 00:00:00 Completed [facility] MMR 2006-02-11 00:00:00 Completed [facility] Polio (IPV/OPV) 2006-02-11 00:00:00 Completed [facility] Pneumococcal 7 Conjugate, PCV7 (Prevnar7) 2006-02-11 00:00:00 Completed [facility] DTAP 2006-02-11 00:00:00 Completed [facility] HEPATITIS A 2006-02-11 00:00:00 Completed [facility] MMR 2006-02-11 00:00:00 Completed [facility] Polio (IPV/OPV) 2006-02-11 00:00:00 Completed [facility] Pneumococcal 7 Conjugate, PCV7 (Prevnar7) 2006-02-11 00:00:00 Completed [facility] DTAP 2006-02-11 00:00:00 Completed [facility] HEPATITIS A 2006-02-11 00:00:00 Completed [facility] MMR 2006-02-11 00:00:00 Completed [facility] Polio (IPV/OPV) 2006-02-11 00:00:00 Completed [facility] Pneumococcal 7 Conjugate, PCV7 (Prevnar7) 2006-02-11 00:00:00 Completed [facility] DTAP 2006-02-11 00:00:00 Completed [facility] HEPATITIS A 2006-02-11 00:00:00 Completed [facility] MMR 2006-02-11 00:00:00 Completed [facility] Polio (IPV/OPV) 2006-02-11 00:00:00 Completed [facility] Pneumococcal 7 Conjugate, PCV7 (Prevnar7) 2006-02-11 00:00:00 Completed [facility] DTAP 2006-02-11 00:00:00 Completed [facility] HEPATITIS A 2006-02-11 00:00:00 Completed [facility] MMR 2006-02-11 00:00:00 Completed [facility] Polio (IPV/OPV) 2006-02-11 00:00:00 Completed [facility] Pneumococcal 7 Conjugate, PCV7 (Prevnar7) 2006-02-11 00:00:00 Completed [facility] DTAP 2006-02-11 00:00:00 Completed [facility] HEPATITIS A 2006-02-11 00:00:00 Completed [facility] MMR 2006-02-11 00:00:00 Completed [facility] Polio (IPV/OPV) 2006-02-11 00:00:00 Completed [facility] Pneumococcal 7 Conjugate, PCV7 (Prevnar7) 2006-02-11 00:00:00 Completed [facility] DTAP 2006-02-11 00:00:00 Completed [facility] HEPATITIS A 2006-02-11 00:00:00 Completed [facility] MMR 2006-02-11 00:00:00 Completed [facility] Polio (IPV/OPV) 2006-02-11 00:00:00 Completed [facility] Pneumococcal 7 Conjugate, PCV7 (Prevnar7) 2006-02-11 00:00:00 Completed [facility] DTAP 2006-02-11 00:00:00 Completed [facility] HEPATITIS A 2006-02-11 00:00:00 Completed [facility] MMR 2006-02-11 00:00:00 Completed [facility] Polio (IPV/OPV) 2006-02-11 00:00:00 Completed [facility] Pneumococcal 7 Conjugate, PCV7 (Prevnar7) 2006-02-11 00:00:00 Completed [facility] DTAP 2006-02-11 00:00:00 Completed [facility] HEPATITIS A 2006-02-11 00:00:00 Completed [facility] MMR 2006-02-11 00:00:00 Completed [facility] Polio (IPV/OPV) 2006-02-11 00:00:00 Completed [facility] Pneumococcal 7 Conjugate, PCV7 (Prevnar7) 2006-02-11 00:00:00 Completed [facility] DTAP 2006-02-11 00:00:00 Completed [facility] HEPATITIS A 2006-02-11 00:00:00 Completed [facility] MMR 2006-02-11 00:00:00 Completed [facility] Polio (IPV/OPV) 2006-02-11 00:00:00 Completed [facility] Pneumococcal 7 Conjugate, PCV7 (Prevnar7) 2006-02-11 00:00:00 Completed [facility] DTAP 2006-02-11 00:00:00 Completed [facility] HEPATITIS A 2006-02-11 00:00:00 Completed [facility] MMR 2006-02-11 00:00:00 Completed [facility] Polio (IPV/OPV) 2006-02-11 00:00:00 Completed [facility] Pneumococcal 7 Conjugate, PCV7 (Prevnar7) 2006-02-11 00:00:00 Completed [facility] DTAP 2006-02-11 00:00:00 Completed [facility] HEPATITIS A 2006-02-11 00:00:00 Completed [facility] MMR 2006-02-11 00:00:00 Completed [facility] Polio (IPV/OPV) 2006-02-11 00:00:00 Completed [facility] Pneumococcal 7 Conjugate, PCV7 (Prevnar7) 2006-02-11 00:00:00 Completed [facility] DTAP 2006-02-11 00:00:00 Completed [facility] HEPATITIS A 2006-02-11 00:00:00 Completed [facility] MMR 2006-02-11 00:00:00 Completed [facility] Polio (IPV/OPV) 2006-02-11 00:00:00 Completed [facility] Pneumococcal 7 Conjugate, PCV7 (Prevnar7) 2006-02-11 00:00:00 Completed [facility] DTAP 2006-02-11 00:00:00 Completed [facility] HEPATITIS A 2006-02-11 00:00:00 Completed [facility] MMR 2006-02-11 00:00:00 Completed [facility] Polio (IPV/OPV) 2006-02-11 00:00:00 Completed [facility] Pneumococcal 7 Conjugate, PCV7 (Prevnar7) 2006-02-11 00:00:00 Completed [facility] DTAP 2006-02-11 00:00:00 Completed [facility] HEPATITIS A 2006-02-11 00:00:00 Completed [facility] MMR 2006-02-11 00:00:00 Completed [facility] Polio (IPV/OPV) 2006-02-11 00:00:00 Completed [facility] Pneumococcal 7 Conjugate, PCV7 (Prevnar7) 2006-02-11 00:00:00 Completed [facility] DTAP 2006-02-11 00:00:00 Completed [facility] MMR 2006-02-11 00:00:00 Completed Polio (IPV/OPV) 2006-02-11 00:00:00 Completed DTAP 2006-02-11 00:00:00 Completed HEPATITIS A 2006-02-11 00:00:00 Completed [facility] MMR 2006-02-11 00:00:00 Completed [facility] Polio (IPV/OPV) 2006-02-11 00:00:00 Completed [facility] Pneumococcal 7 Conjugate, PCV7 (Prevnar7) 2006-02-11 00:00:00 Completed [facility] DTAP 2006-02-11 00:00:00 Completed [facility] Hep B, Adol or Pedi Dosage 2004-04-16 00:00:00 Completed [facility] Polio (IPV/OPV) 2004-04-16 00:00:00 Completed [facility] DTAP 2004-04-16 00:00:00 Completed [facility] Hep B, Adol or Pedi Dosage 2004-04-16 00:00:00 Completed [facility] Polio (IPV/OPV) 2004-04-16 00:00:00 Completed [facility] DTAP 2004-04-16 00:00:00 Completed [facility] Hep B, Adol or Pedi Dosage 2004-04-16 00:00:00 Completed [facility] Polio (IPV/OPV) 2004-04-16 00:00:00 Completed [facility] DTAP 2004-04-16 00:00:00 Completed [facility] Hep B, Adol or Pedi Dosage 2004-04-16 00:00:00 Completed [facility] Polio (IPV/OPV) 2004-04-16 00:00:00 Completed [facility] DTAP 2004-04-16 00:00:00 Completed [facility] Hep B, Adol or Pedi Dosage 2004-04-16 00:00:00 Completed [facility] Polio (IPV/OPV) 2004-04-16 00:00:00 Completed [facility] DTAP 2004-04-16 00:00:00 Completed [facility] Hep B, Adol or Pedi Dosage 2004-04-16 00:00:00 Completed [facility] Polio (IPV/OPV) 2004-04-16 00:00:00 Completed [facility] DTAP 2004-04-16 00:00:00 Completed [facility] Hep B, Adol or Pedi Dosage 2004-04-16 00:00:00 [facility] [facility] Polio (IPV/OPV) 2004-04-16 00:00:00 Completed [facility] DTAP 2004-04-16 00:00:00 Completed [facility] Hep B, Adol or Pedi Dosage 2004-04-16 00:00:00 Completed [facility] Polio (IPV/OPV) 2004-04-16 00:00:00 Completed [facility] DTAP 2004-04-16 00:00:00 Completed [facility] Hep B, Adol or Pedi Dosage 2004-04-16 00:00:00 Completed [facility] Polio (IPV/OPV) 2004-04-16 00:00:00 Completed [facility] DTAP 2004-04-16 00:00:00 Completed [facility] Hep B, Adol or Pedi Dosage 2004-04-16 00:00:00 Completed [facility] Polio (IPV/OPV) 2004-04-16 00:00:00 Completed [facility] DTAP 2004-04-16 00:00:00 Completed [facility] Hep B, Adol or Pedi Dosage 2004-04-16 00:00:00 Completed [facility] Polio (IPV/OPV) 2004-04-16 00:00:00 Completed [facility] DTAP 2004-04-16 00:00:00 Completed [facility] Hep B, Adol or Pedi Dosage 2004-04-16 00:00:00 Completed [facility] Polio (IPV/OPV) 2004-04-16 00:00:00 Completed [facility] DTAP 2004-04-16 00:00:00 Completed [facility] Hep B, Adol or Pedi Dosage 2004-04-16 00:00:00 Completed [facility] Polio (IPV/OPV) 2004-04-16 00:00:00 Completed [facility] DTAP 2004-04-16 00:00:00 Completed [facility] Hep B, Adol or Pedi Dosage 2004-04-16 00:00:00 Completed [facility] Polio (IPV/OPV) 2004-04-16 00:00:00 Completed [facility] DTAP 2004-04-16 00:00:00 Completed [facility] Hep B, Adol or Pedi Dosage 2004-04-16 00:00:00 Completed [facility] Polio (IPV/OPV) 2004-04-16 00:00:00 Completed [facility] DTAP 2004-04-16 00:00:00 Completed [facility] Hep B, Adol or Pedi Dosage 2004-04-16 00:00:00 Completed [facility] Polio (IPV/OPV) 2004-04-16 00:00:00 Completed [facility] DTAP 2004-04-16 00:00:00 Completed [facility] Hep B, Adol or Pedi Dosage 2004-04-16 00:00:00 Completed [facility] Polio (IPV/OPV) 2004-04-16 00:00:00 Completed [facility] DTAP 2004-04-16 00:00:00 Completed [facility] Hep B, Adol or Pedi Dosage 2004-04-16 00:00:00 Completed Polio (IPV/OPV) 2004-04-16 00:00:00 Completed DTAP 2004-04-16 00:00:00 Completed Hep B, Adol or Pedi Dosage 2004-04-16 00:00:00 Completed [facility] Polio (IPV/OPV) 2004-04-16 00:00:00 Completed [facility] DTAP 2004-04-16 00:00:00 Completed [facility] Hep B, Adol or Pedi Dosage 2003-07-17 00:00:00 Completed [facility] MMR 2003-07-17 00:00:00 Completed [facility] Polio (IPV/OPV) 2003-07-17 00:00:00 Completed [facility] Varicella (varivax)(chicken pox) 2003-07-17 00:00:00 Completed [facility] DTAP 2003-07-17 00:00:00 Completed [facility] HIB 4 Dose Schedule 2003-07-17 00:00:00 Completed [facility] Hep B, Adol or Pedi Dosage 2003-07-17 00:00:00 Completed [facility] MMR 2003-07-17 00:00:00 Completed [facility] Polio (IPV/OPV) 2003-07-17 00:00:00 Completed [facility] Varicella (varivax)(chicken pox) 2003-07-17 00:00:00 Completed [facility] DTAP 2003-07-17 00:00:00 Completed [facility] HIB 4 Dose Schedule 2003-07-17 00:00:00 Completed [facility] Hep B, Adol or Pedi Dosage 2003-07-17 00:00:00 Completed [facility] MMR 2003-07-17 00:00:00 Completed [facility] Polio (IPV/OPV) 2003-07-17 00:00:00 Completed [facility] Varicella (varivax)(chicken pox) 2003-07-17 00:00:00 Completed [facility] DTAP 2003-07-17 00:00:00 Completed [facility] HIB 4 Dose Schedule 2003-07-17 00:00:00 Completed [facility] Hep B, Adol or Pedi Dosage 2003-07-17 00:00:00 Completed [facility] MMR 2003-07-17 00:00:00 Completed [facility] Polio (IPV/OPV) 2003-07-17 00:00:00 Completed [facility] Varicella (varivax)(chicken pox) 2003-07-17 00:00:00 Completed [facility] DTAP 2003-07-17 00:00:00 Completed [facility] HIB 4 Dose Schedule 2003-07-17 00:00:00 Completed [facility] Hep B, Adol or Pedi Dosage 2003-07-17 00:00:00 Completed [facility] MMR 2003-07-17 00:00:00 Completed [facility] Polio (IPV/OPV) 2003-07-17 00:00:00 Completed [facility] Varicella (varivax)(chicken pox) 2003-07-17 00:00:00 Completed [facility] DTAP 2003-07-17 00:00:00 Completed [facility] HIB 4 Dose Schedule 2003-07-17 00:00:00 Completed [facility] Hep B, Adol or Pedi Dosage 2003-07-17 00:00:00 Completed [facility] MMR 2003-07-17 00:00:00 Completed [facility] Polio (IPV/OPV) 2003-07-17 00:00:00 Completed [facility] Varicella (varivax)(chicken pox) 2003-07-17 00:00:00 Completed [facility] DTAP 2003-07-17 00:00:00 Completed [facility] HIB 4 Dose Schedule 2003-07-17 00:00:00 Completed [facility] Hep B, Adol or Pedi Dosage 2003-07-17 00:00:00 Completed [facility] MMR 2003-07-17 00:00:00 Completed [facility] Polio (IPV/OPV) 2003-07-17 00:00:00 Completed [facility] Varicella (varivax)(chicken pox) 2003-07-17 00:00:00 Completed [facility] DTAP 2003-07-17 00:00:00 Completed [facility] HIB 4 Dose Schedule 2003-07-17 00:00:00 Completed [facility] Hep B, Adol or Pedi Dosage 2003-07-17 00:00:00 Completed [facility] MMR 2003-07-17 00:00:00 Completed [facility] Polio (IPV/OPV) 2003-07-17 00:00:00 Completed [facility] Varicella (varivax)(chicken pox) 2003-07-17 00:00:00 Completed [facility] DTAP 2003-07-17 00:00:00 Completed [facility] HIB 4 Dose Schedule 2003-07-17 00:00:00 Completed [facility] Hep B, Adol or Pedi Dosage 2003-07-17 00:00:00 Completed [facility] MMR 2003-07-17 00:00:00 Completed [facility] Polio (IPV/OPV) 2003-07-17 00:00:00 Completed [facility] Varicella (varivax)(chicken pox) 2003-07-17 00:00:00 Completed [facility] DTAP 2003-07-17 00:00:00 Completed [facility] HIB 4 Dose Schedule 2003-07-17 00:00:00 Completed [facility] Hep B, Adol or Pedi Dosage 2003-07-17 00:00:00 Completed [facility] MMR 2003-07-17 00:00:00 Completed [facility] Polio (IPV/OPV) 2003-07-17 00:00:00 Completed [facility] Varicella (varivax)(chicken pox) 2003-07-17 00:00:00 Completed [facility] DTAP 2003-07-17 00:00:00 Completed [facility] HIB 4 Dose Schedule 2003-07-17 00:00:00 Completed [facility] Hep B, Adol or Pedi Dosage 2003-07-17 00:00:00 Completed [facility] MMR 2003-07-17 00:00:00 Completed [facility] Polio (IPV/OPV) 2003-07-17 00:00:00 Completed [facility] Varicella (varivax)(chicken pox) 2003-07-17 00:00:00 Completed [facility] DTAP 2003-07-17 00:00:00 Completed [facility] HIB 4 Dose Schedule 2003-07-17 00:00:00 Completed [facility] Hep B, Adol or Pedi Dosage 2003-07-17 00:00:00 Completed [facility] MMR 2003-07-17 00:00:00 Completed [facility] Polio (IPV/OPV) 2003-07-17 00:00:00 Completed [facility] Varicella (varivax)(chicken pox) 2003-07-17 00:00:00 Completed [facility] DTAP 2003-07-17 00:00:00 Completed [facility] HIB 4 Dose Schedule 2003-07-17 00:00:00 Completed [facility] Hep B, Adol or Pedi Dosage 2003-07-17 00:00:00 Completed [facility] MMR 2003-07-17 00:00:00 Completed [facility] Polio (IPV/OPV) 2003-07-17 00:00:00 Completed [facility] Varicella (varivax)(chicken pox) 2003-07-17 00:00:00 Completed [facility] DTAP 2003-07-17 00:00:00 Completed [facility] HIB 4 Dose Schedule 2003-07-17 00:00:00 Completed [facility] Hep B, Adol or Pedi Dosage 2003-07-17 00:00:00 Completed [facility] MMR 2003-07-17 00:00:00 Completed [facility] Polio (IPV/OPV) 2003-07-17 00:00:00 Completed [facility] Varicella (varivax)(chicken pox) 2003-07-17 00:00:00 Completed [facility] DTAP 2003-07-17 00:00:00 Completed [facility] HIB 4 Dose Schedule 2003-07-17 00:00:00 Completed [facility] Hep B, Adol or Pedi Dosage 2003-07-17 00:00:00 Completed [facility] MMR 2003-07-17 00:00:00 Completed [facility] Polio (IPV/OPV) 2003-07-17 00:00:00 Completed [facility] Varicella (varivax)(chicken pox) 2003-07-17 00:00:00 Completed [facility] DTAP 2003-07-17 00:00:00 Completed [facility] HIB 4 Dose Schedule 2003-07-17 00:00:00 Completed [facility] Hep B, Adol or Pedi Dosage 2003-07-17 00:00:00 Completed [facility] MMR 2003-07-17 00:00:00 Completed [facility] Polio (IPV/OPV) 2003-07-17 00:00:00 Completed [facility] Varicella (varivax)(chicken pox) 2003-07-17 00:00:00 Completed [facility] DTAP 2003-07-17 00:00:00 Completed [facility] HIB 4 Dose Schedule 2003-07-17 00:00:00 Completed [facility] Hep B, Adol or Pedi Dosage 2003-07-17 00:00:00 Completed [facility] MMR 2003-07-17 00:00:00 Completed [facility] Polio (IPV/OPV) 2003-07-17 00:00:00 Completed [facility] Varicella (varivax)(chicken pox) 2003-07-17 00:00:00 Completed [facility] DTAP 2003-07-17 00:00:00 Completed [facility] HIB 4 Dose Schedule 2003-07-17 00:00:00 Completed [facility] Hep B, Adol or Pedi Dosage 2003-07-17 00:00:00 Completed Polio (IPV/OPV) 2003-07-17 00:00:00 Completed DTAP 2003-07-17 00:00:00 Completed HIB 4 Dose Schedule 2003-07-17 00:00:00 Completed Hep B, Adol or Pedi Dosage 2003-07-17 00:00:00 Completed [facility] MMR 2003-07-17 00:00:00 Completed [facility] Polio (IPV/OPV) 2003-07-17 00:00:00 Completed [facility] Varicella (varivax)(chicken pox) 2003-07-17 00:00:00 Completed [facility] DTAP 2003-07-17 00:00:00 Completed [facility] HIB 4 Dose Schedule 2003-07-17 00:00:00 Completed [facility] Hep B, Adol or Pedi Dosage 2002 00:00:00 Completed [facility] DTAP 2002 00:00:00 Completed [facility] HIB 4 Dose Schedule 2002 00:00:00 Completed [facility] Hep B, Adol or Pedi Dosage 2002 00:00:00 Completed [facility] DTAP 2002 00:00:00 Completed [facility] HIB 4 Dose Schedule 2002 00:00:00 Completed [facility] Hep B, Adol or Pedi Dosage 2002 00:00:00 Completed [facility] DTAP 2002 00:00:00 Completed [facility] HIB 4 Dose Schedule 2002 00:00:00 Completed [facility] Hep B, Adol or Pedi Dosage 2002 00:00:00 Completed [facility] DTAP 2002 00:00:00 Completed [facility] HIB 4 Dose Schedule 2002 00:00:00 Completed [facility] Hep B, Adol or Pedi Dosage 2002 00:00:00 Completed [facility] DTAP 2002 00:00:00 Completed [facility] HIB 4 Dose Schedule 2002 00:00:00 Completed [facility] Hep B, Adol or Pedi Dosage 2002 00:00:00 Completed [facility] DTAP 2002 00:00:00 Completed [facility] HIB 4 Dose Schedule 2002 00:00:00 Completed [facility] Hep B, Adol or Pedi Dosage 2002 00:00:00 Completed [facility] DTAP 2002 00:00:00 Completed [facility] HIB 4 Dose Schedule 2002 00:00:00 Completed [facility] Hep B, Adol or Pedi Dosage 2002 00:00:00 Completed [facility] DTAP 2002 00:00:00 Completed [facility] HIB 4 Dose Schedule 2002 00:00:00 Completed [facility] Hep B, Adol or Pedi Dosage 2002 00:00:00 Completed [facility] DTAP 2002 00:00:00 Completed [facility] HIB 4 Dose Schedule 2002 00:00:00 Completed [facility] Hep B, Adol or Pedi Dosage 2002 00:00:00 Completed [facility] DTAP 2002 00:00:00 Completed [facility] HIB 4 Dose Schedule 2002 00:00:00 Completed [facility] Hep B, Adol or Pedi Dosage 2002 00:00:00 Completed [facility] DTAP 2002 00:00:00 Completed [facility] HIB 4 Dose Schedule 2002 00:00:00 Completed [facility] Hep B, Adol or Pedi Dosage 2002 00:00:00 Completed [facility] DTAP 2002 00:00:00 Completed [facility] HIB 4 Dose Schedule 2002 00:00:00 Completed [facility] Hep B, Adol or Pedi Dosage 2002 00:00:00 Completed [facility] DTAP 2002 00:00:00 Completed [facility] HIB 4 Dose Schedule 2002 00:00:00 Completed [facility] Hep B, Adol or Pedi Dosage 2002 00:00:00 Completed [facility] DTAP 2002 00:00:00 Completed [facility] HIB 4 Dose Schedule 2002 00:00:00 Completed [facility] Hep B, Adol or Pedi Dosage 2002 00:00:00 Completed [facility] DTAP 2002 00:00:00 Completed [facility] HIB 4 Dose Schedule 2002 00:00:00 Completed [facility] Hep B, Adol or Pedi Dosage 2002 00:00:00 Completed [facility] DTAP 2002 00:00:00 Completed [facility] HIB 4 Dose Schedule 2002 00:00:00 Completed [facility] Hep B, Adol or Pedi Dosage 2002 00:00:00 Completed [facility] DTAP 2002 00:00:00 Completed [facility] HIB 4 Dose Schedule 2002 00:00:00 Completed [facility] Hep B, Adol or Pedi Dosage 2002 00:00:00 Completed [facility] DTAP 2002 00:00:00 Completed [facility] HIB 4 Dose Schedule 2002 00:00:00 Completed [facility] Vital Signs Vital Name Observation Time Observation Value Comments S antionette Systolic blood pressure 2025-02-08 00:05:00 126 mm[Hg] [facility] Diastolic blood pressure 2025-02-08 00:05:00 85 mm[Hg] [facility] Heart rate 2025-02-08 00:05:00 88 /min [facility] Body temperature 2025-02-08 00:05:00 36.89 Lisha [facility] Respiratory rate 2025-02-08 00:05:00 17 /min [facility] Body weight 2025-02-08 00:05:00 94.303 kg [facility] BMI 2025-02-08 00:05:00 30.70 kg/m2 [facility] Oxygen saturation in Arterial blood by Pulse oximetry 2025-02-08 00:05:00 99 /min [facility] Systolic blood pressure 2025-01-19 02:38:00 126 mm[Hg] [facility] Diastolic blood pressure 2025-01-19 02:38:00 85 mm[Hg] [facility] Heart rate 2025-01-19 02:38:00 114 /min [facility] Body temperature 2025-01-19 02:38:00 37 Lisha [facility] Respiratory rate 2025-01-19 02:38:00 16 /min [facility] Body height 2025-01-19 02:38:00 175.3 cm [facility] Body weight 2025-01-19 02:38:00 72.576 kg [facility] BMI 2025-01-19 02:38:00 23.63 kg/m2 [facility] Oxygen saturation in Arterial blood by Pulse oximetry 2025-01-19 02:38:00 96 /min [facility] Systolic blood pressure 2024-07-03 11:49:00 148 mm[Hg] [facility] Diastolic blood pressure 2024-07-03 11:49:00 80 mm[Hg] [facility] Heart rate 2024-07-03 11:49:00 71 /min [facility] Body temperature 2024-07-03 11:49:00 36.5 Lisha [facility] Respiratory rate 2024-07-03 11:49:00 16 /min [facility] Body height 2024-07-03 11:49:00 172.7 cm [facility] Body weight 2024-07-03 11:49:00 68.04 kg [facility] BMI 2024-07-03 11:49:00 22.81 kg/m2 [facility] Oxygen saturation in Arterial blood by Pulse oximetry 2024-07-03 11:49:00 100 /min [facility] Systolic blood pressure 2023-10-31 00:16:00 115 mm[Hg] [facility] Diastolic blood pressure 2023-10-31 00:16:00 80 mm[Hg] [facility] Heart rate 2023-10-31 00:16:00 119 /min [facility] Body temperature 2023-10-31 00:16:00 36.61 Lisha [facility] Respiratory rate 2023-10-31 00:16:00 16 /min [facility] Body weight 2023-10-31 00:16:00 109.317 kg [facility] BMI 2023-10-31 00:16:00 36.64 kg/m2 [facility] Oxygen saturation in Arterial blood by Pulse oximetry 2023-10-31 00:16:00 98 /min [facility] Systolic blood pressure 2023-10-11 08:02:00 116 mm[Hg] [facility] Diastolic blood pressure 2023-10-11 08:02:00 88 mm[Hg] [facility] Heart rate 2023-10-11 08:02:00 94 /min [facility] Body temperature 2023-10-11 08:02:00 37 Lisha [facility] Respiratory rate 2023-10-11 08:02:00 16 /min [facility] Oxygen saturation in Arterial blood by Pulse oximetry 2023-10-11 08:02:00 97 /min [facility] Body height 2023-10-11 04:25:00 172.7 cm [facility] Body weight 2023-10-11 04:25:00 107.548 kg [facility] BMI 2023-10-11 04:25:00 36.05 kg/m2 [facility] Systolic blood pressure 2023-09-28 00:27:00 128 mm[Hg] [facility] Diastolic blood pressure 2023-09-28 00:27:00 78 mm[Hg] [facility] Heart rate 2023-09-28 00:27:00 98 /min [facility] Body temperature 2023-09-28 00:27:00 36.94 Lisha [facility] Respiratory rate 2023-09-28 00:27:00 18 /min [facility] Oxygen saturation in Arterial blood by Pulse oximetry 2023-09-28 00:27:00 97 /min [facility] Body height 2023-09-27 22:12:00 172.7 cm [facility] Body weight 2023-09-27 22:12:00 113.399 kg [facility] BMI 2023-09-27 22:12:00 38.01 kg/m2 [facility] Systolic blood pressure 2023-09-27 21:44:00 128 mm[Hg] [facility] Diastolic blood pressure 2023-09-27 21:44:00 84 mm[Hg] [facility] Heart rate 2023-09-27 21:44:00 74 /min [facility] Body temperature 2023-09-27 21:44:00 36.72 Lisha [facility] Respiratory rate 2023-09-27 21:44:00 17 /min [facility] Body weight 2023-09-27 21:44:00 111.131 kg [facility] BMI 2023-09-27 21:44:00 37.25 kg/m2 [facility] Oxygen saturation in Arterial blood by Pulse oximetry 2023-09-27 21:44:00 97 /min [facility] Systolic blood pressure 2023-09-21 23:05:00 128 mm[Hg] [facility] Diastolic blood pressure 2023-09-21 23:05:00 91 mm[Hg] [facility] Heart rate 2023-09-21 23:04:00 89 /min [facility] Body temperature 2023-09-21 23:04:00 37.11 Lisha [facility] Respiratory rate 2023-09-21 23:04:00 17 /min [facility] Body weight 2023-09-21 23:04:00 111.131 kg [facility] BMI 2023-09-21 23:04:00 37.25 kg/m2 [facility] Oxygen saturation in Arterial blood by Pulse oximetry 2023-09-21 23:04:00 97 /min [facility] Systolic blood pressure 2023-08-06 00:42:00 112 mm[Hg] [facility] Diastolic blood pressure 2023-08-06 00:42:00 78 mm[Hg] [facility] Heart rate 2023-08-06 00:42:00 88 /min [facility] Body temperature 2023-08-06 00:42:00 36.67 Lisha [facility] Respiratory rate 2023-08-06 00:42:00 18 /min [facility] Body height 2023-08-06 00:42:00 172.7 cm [facility] Body weight 2023-08-06 00:42:00 117.198 kg [facility] BMI 2023-08-06 00:42:00 39.29 kg/m2 [facility] Oxygen saturation in Arterial blood by Pulse oximetry 2023-08-06 00:42:00 97 /min [facility] Body height 2022-12-01 22:59:00 172.7 cm [facility] Body weight 2022-12-01 22:59:00 113.399 kg [facility] BMI 2022-12-01 22:59:00 38.01 kg/m2 [facility] Systolic blood pressure 2022-12-01 22:58:00 138 mm[Hg] [facility] Diastolic blood pressure 2022-12-01 22:58:00 100 mm[Hg] [facility] Heart rate 2022-12-01 22:58:00 118 /min [facility] Body temperature 2022-12-01 22:58:00 36.78 Lisha [facility] Respiratory rate 2022-12-01 22:58:00 18 /min [facility] Oxygen saturation in Arterial blood by Pulse oximetry 2022-12-01 22:58:00 99 /min [facility] Systolic blood pressure 2022-08-06 21:40:00 120 mm[Hg] [facility] Diastolic blood pressure 2022-08-06 21:40:00 85 mm[Hg] [facility] Heart rate 2022-08-06 21:40:00 74 /min [facility] Body temperature 2022-08-06 21:40:00 36.44 Lisha [facility] Respiratory rate 2022-08-06 21:40:00 18 /min [facility] Body weight 2022-08-06 21:40:00 113.036 kg [facility] Oxygen saturation in Arterial blood by Pulse oximetry 2022-08-06 21:40:00 96 /min [facility] Systolic blood pressure 2022-05-25 01:26:00 124 mm[Hg] [facility] Diastolic blood pressure 2022-05-25 01:26:00 82 mm[Hg] [facility] Heart rate 2022-05-25 01:26:00 81 /min [facility] Body temperature 2022-05-25 01:26:00 37 Lisha [facility] Respiratory rate 2022-05-25 01:26:00 17 /min [facility] Body height 2022-05-25 01:26:00 172.7 cm [facility] Body weight 2022-05-25 01:26:00 108.863 kg [facility] BMI 2022-05-25 01:26:00 36.49 kg/m2 [facility] Oxygen saturation in Arterial blood by Pulse oximetry 2022-05-25 01:26:00 98 /min [facility] Systolic blood pressure 2022-01-26 21:33:00 113 mm[Hg] [facility] Diastolic blood pressure 2022-01-26 21:33:00 78 mm[Hg] [facility] Heart rate 2022-01-26 21:33:00 64 /min [facility] Body temperature 2022-01-26 21:33:00 36.11 Lisha [facility] Respiratory rate 2022-01-26 21:33:00 17 /min [facility] Body height 2022-01-26 21:33:00 172.7 cm [facility] Body weight 2022-01-26 21:33:00 113.263 kg [facility] BMI 2022-01-26 21:33:00 37.97 kg/m2 [facility] Oxygen saturation in Arterial blood by Pulse oximetry 2022-01-26 21:33:00 96 /min [facility] Systolic blood pressure 2021-10-16 19:21:00 134 mm[Hg] [facility] Diastolic blood pressure 2021-10-16 19:21:00 85 mm[Hg] [facility] hospital Heart rate 2021-10-16 19:21:00 97 /min [facility] Body temperature 2021-10-16 19:21:00 36.17 Lisha [facility] Respiratory rate 2021-10-16 19:21:00 16 /min [facility] Body height 2021-10-16 19:21:00 172.7 cm [facility] [facility] Body weight 2021-10-16 19:21:00 105.235 kg [facility] BMI 2021-10-16 19:21:00 35.28 kg/m2 [facility] Body mass index (BMI) [Percentile] Per age and sex 2021-10-16 19:21:00 98.72 % [facility] acute hospital Oxygen saturation in Arterial blood by Pulse oximetry 2021-10-16 19:21:00 100 /min [facility] Systolic blood pressure 2021-09-29 17:09:00 126 mm[Hg] [facility] acute hospital Diastolic blood pressure 2021-09-29 17:09:00 83 mm[Hg] [facility] hospital Heart rate 2021-09-29 17:09:00 92 /min [facility] Body temperature 2021-09-29 17:09:00 37.28 Lisha [facility] Respiratory rate 2021-09-29 17:09:00 16 /min [facility] Body height 2021-09-29 17:09:00 172.7 cm [facility] Body weight 2021-09-29 17:09:00 101.606 kg [facility] BMI 2021-09-29 17:09:00 34.06 kg/m2 [facility] Body mass index (BMI) [Percentile] Per age and sex 2021-09-29 17:09:00 98.28 % [facility] acute hospital Oxygen saturation in Arterial blood by Pulse oximetry 2021-09-29 17:09:00 97 /min [facility] Systolic blood pressure 2021-02-11 21:19:00 133 mm[Hg] [facility] Diastolic blood pressure 2021-02-11 21:19:00 85 mm[Hg] [facility] acute hospital Heart rate 2021-02-11 21:19:00 84 /min [facility] Body height 2021-02-11 21:19:00 172.7 cm [facility] Body weight 2021-02-11 21:19:00 94.802 kg [facility] BMI 2021-02-11 21:19:00 31.78 kg/m2 [facility] Body mass index (BMI) [Percentile] Per age and sex 2021-02-11 21:19:00 97.30 % [facility] acute hospital Oxygen saturation in Arterial blood by Pulse oximetry 2021-02-11 21:19:00 99 /min [facility] BP Systolic 2024-09-21 17:52:00 138 mm[Hg] Step hen F Meek BP Diastolic 2024-09-21 17:52:00 82 mm[Hg] Melchor phen F Meek Weight Measured 2024-09-21 17:52:00 226.40 pounds Will F Meek Height Measured 2024-09-21 17:52:00 68.00 inches Will F Meek Body Temperature 2024-09-21 17:52:00 97.80 degrees Will F Meek Heart Rate 2024-09-21 17:52:00 82.00 /min Jessica en F Meek Respiratory Rate 2024-09-21 17:52:00 18.00 /min Will F Meek BP Systolic 2023-11-25 16:12:00 122 mm[Hg] Step hen F Meek BP Diastolic 2023-11-25 16:12:00 83 mm[Hg] Melchor phen F Meek Weight Measured 2023-11-25 16:12:00 239.00 pounds Will F Meek Height Measured 2023-11-25 16:12:00 68.00 inches Will F Meek Body Temperature 2023-11-25 16:12:00 98.20 degrees Will F Meek Heart Rate 2023-11-25 16:12:00 88.00 /min Jessica en F Meek Respiratory Rate 2023-11-25 16:12:00 19.00 /min Will F Meek BP Systolic 2023-08-07 14:36:00 134 mm[Hg] Step hen F Meek BP Diastolic 2023-08-07 14:36:00 84 mm[Hg] Melchor phen F Meek Weight Measured 2023-08-07 14:36:00 254.40 pounds Will F Meek Height Measured 2023-08-07 14:36:00 68.00 inches Will F Meek Body Temperature 2023-08-07 14:36:00 98.00 degrees Will F Meek Heart Rate 2023-08-07 14:36:00 83.00 /min Jessica en F Meek Respiratory Rate 2023-08-07 14:36:00 18.00 /min Will F Meek BP Systolic 2023-06-01 15:51:00 129 mm[Hg] Step hen F Meek BP Diastolic 2023-06-01 15:51:00 84 mm[Hg] Melchor phen F Meek Weight Measured 2023-06-01 15:51:00 258.80 pounds Will F Meek Height Measured 2023-06-01 15:51:00 68.00 inches Will F Meek Body Temperature 2023-06-01 15:51:00 98.40 degrees Will F Meek Heart Rate 2023-06-01 15:51:00 97.00 /min Jessica en F Meek Respiratory Rate 2023-06-01 15:51:00 18.00 /min Will F Meek BP Systolic 2023-05-14 17:52:00 123 mm[Hg] Step hen F Meek BP Diastolic 2023-05-14 17:52:00 67 mm[Hg] Melchor phen F Meek Weight Measured 2023-05-14 17:52:00 261.40 pounds Will F Meek Height Measured 2023-05-14 17:52:00 68.00 inches Will F Meek Body Temperature 2023-05-14 17:52:00 98.30 degrees Will F Meek Heart Rate 2023-05-14 17:52:00 85.00 /min Jessica en F Meek Respiratory Rate 2023-05-14 17:52:00 16.00 /min Will F Meek BP Systolic 2023-05-07 17:57:00 126 mm[Hg] Step hen F Meek BP Diastolic 2023-05-07 17:57:00 84 mm[Hg] Melchor phen F Meek Weight Measured 2023-05-07 17:57:00 262.00 pounds Will F Meek Height Measured 2023-05-07 17:57:00 68.00 inches Will F Meek Body Temperature 2023-05-07 17:57:00 98.30 degrees Will F Meek Heart Rate 2023-05-07 17:57:00 85.00 /min Jessica en F Meek Respiratory Rate 2023-05-07 17:57:00 18.00 /min Will F Meek BP Systolic 2018-12-15 11:36:00 120 mm[Hg] Step hen F Meek BP Diastolic 2018-12-15 11:36:00 72 mm[Hg] Melchor phen F Meek Weight Measured 2018-12-15 11:36:00 147.60 pounds Will F Meek Height Measured 2018-12-15 11:36:00 68.31 inches Will F Meek Body Temperature 2018-12-15 11:36:00 97.80 degrees Will F Meek Heart Rate 2018-12-15 11:36:00 72.00 /min Jessica en F Meek Respiratory Rate 2018-12-15 11:36:00 16.00 /min Will F Meek BP Systolic 2018-12-01 17:57:00 105 mm[Hg] Step hen F Meek BP Diastolic 2018-12-01 17:57:00 66 mm[Hg] Melchor phen F Meek Weight Measured 2018-12-01 17:57:00 154.20 pounds Will F Meek Height Measured 2018-12-01 17:57:00 67.91 inches Will F Meek Body Temperature 2018-12-01 17:57:00 97.70 degrees Will F Meek Heart Rate 2018-12-01 17:57:00 73.00 /min Jessica en F Meek Respiratory Rate 2018-12-01 17:57:00 18.00 /min Will F Meek BP Systolic 2018-11-21 14:38:00 113 mm[Hg] Step hen F Meek BP Diastolic 2018-11-21 14:38:00 64 mm[Hg] Melchor phen F Meek Weight Measured 2018-11-21 14:38:00 152.60 pounds Will F Meek Height Measured 2018-11-21 14:38:00 67.91 inches Will F Emek Body Temperature 2018-11-21 14:38:00 97.80 degrees Will F Meek Heart Rate 2018-11-21 14:38:00 69.00 /min Jessica en F Meek Respiratory Rate 2018-11-21 14:38:00 16.00 /min Will F Meek Procedures Procedure Date / Time Performed Performing Clinician Source RAPID STREP SCREEN FOR GROUP A 2024-07-03 11:52:00 Gerald Arellano [facility] INFLUENZA A/B RSV COVID NAAT 2024-07-03 11:52:00 Singer Gerald [facility] POCT MOLECULAR STREP 2023-10-31 00:15:00 Unknown, Atte carisa [facility] PROTHROMBIN TIME / INR 2023-10-11 07:36:00 Kristine James ala [facility] ACTIVATED PARTIAL THRMPLAS RAISSA 2023-10-11 07:36:00 Mis James [facility] CT ABDOMEN PELVIS W CONTRAST 2023-10-11 07:12:58 Mis James [facility] US GALL BLADDER 2023-10-11 06:07:48 [facility] 2023-10-11 05:07:00 Mis James [facility] COMP. METABOLIC PANEL (47430) 2023-10-11 05:07:00 Mis James [facility] CBC WITH DIFF 2023-10-11 04:40:00 Mis James [facility] URINALYSIS 2023-10-11 04:40:00 Mis James [facility] US TESTICULAR TORSION 2023-09-27 23:07:00 Marlene Guy se [facility] URINALYSIS 2023-09-27 22:36:[address] [facility] POCT URINALYSIS 2023-09-21 23:26:00 Amalia Goode [facility] POCT SARS-COV-2 ANTIGEN (BINAX NOW) 2023-08-06 00:54:00 Dorina Greene [facility] CONSENT/REFUSAL FOR DIAGNOSIS AND TREATMENT 2022-12-01 22:51:02 Doctor Unassigned, [place] [facility] PHYSICIAN ORDERS 2022-06-02 06:01:00 Doctor Unas signed, [place] [facility] XR ANKLE 3+ VW RIGHT 2022-05-25 01:40:58 Whitney Luke [facility] POCT MOLECULAR FLU 2022-01-26 21:39:00 Santo Luke [facility] POCT MOLECULAR STREP 2022-01-26 21:37:00 Whitney Luke [facility] POCT MOLECULAR STREP 2021-10-16 19:26:00 Whitney Luke [facility] POCT MOLECULAR STREP 2021-09-29 17:15:00 Amalia Goode [facility] ASSIGNMENT OF BENEFITS 2021-09-29 16:57:55 Docto r Unassigned, [place] [facility] ASSIGNMENT OF BENEFITS 2021-07-22 20:58:48 Docto r Unassigned, [place] [facility] Encounters Start Date/Time End Date/Time Encounter Type Admission Type Attending [facility] Facility Care Department Encounter ID Source 2021-03-09 15:01:06 Emergency [place] [id number] [facility] 2021-03-08 23:49:56 Emergency [place] [id number] [facility] 2025-02-07 19:00:00 2025-02-07 19:18:53 Urgent Care AMALIA RIOS [facility] 1.2.840.114 350.1.13.10 4.2.7.2.686 [id number] [facility] 2025-01-29 17:45:08 2025-01-29 17:45:08 Outpatient SFA SFA [id number] Will Eden 2025-01-18 21:57:00 2025-01-18 22:10:00 Emergency X [place], VENU HANCOCK [facility] ERT [id number] [facility] 2024-11-01 11:30:10 2024-11-01 11:30:10 Outpatient SFA SFA [id number] Will Garcia Meek 2024-10-25 11:04:42 2024-10-25 11:04:42 Outpatient SFA SFA [id number] Will Eden 2024-10-18 10:14:41 2024-10-18 10:14:41 Outpatient SFA SFA [id number] Will Garcia Meek 2024-09-21 17:48:14 2024-09-21 17:48:14 Outpatient SFA SFA [id number] Will Garcia Meek 2024-09-21 00:00:00 2024-09-21 00:00:00 Outpatient Visit SFA [id number] Will Garcia Meek 2024-08-31 11:04:15 2024-08-31 11:04:15 Outpatient SFA SFA [id number] Will Garcia Meek 2024-07-03 05:52:00 2024-07-03 06:55:00 Emergency X GERALD ARELLANO PHILLIP [facility] ERT [id number] [facility] 2024-07-03 05:52:00 2024-07-03 06:55:00 Emergency Gerald Arellano AT [facility] 1..840.114 350.1.13.10 4.2.7.2.686 [id number] [facility] 2024-05-19 19:01:02 2024-05-19 19:01:02 Outpatient SFA [facility] [id number] Will Eden 2024-05-19 00:00:00 2024-05-19 00:00:00 Outpatient Visit [facility] [id number] Will Eden 2024-05-18 16:50:32 2024-05-18 16:50:32 Outpatient SFA [facility] [id number] Will Garcia Meek 2024-03-02 09:10:21 2024-03-02 09:10:21 Outpatient SFA [facility] [id number] Will Garcia Meek 2024-01-25 18:22:31 2024-01-25 18:22:31 Outpatient SFA [facility] [id number] Will Garcia Meek 2024-01-03 14:39:53 2024-01-03 14:39:53 Outpatient SFA [facility] [id number] Will Garcia Meek 2023-11-25 16:06:53 2023-11-25 16:06:53 Outpatient SFA [facility] [id number] Will Garcia Meek 2023-11-25 00:00:00 2023-11-25 00:00:00 Outpatient Visit SFA [id number] Will Eden 2023-09-30 00:00:00 2023-11-06 18:22:44 Patient Secure Msg Doctor Unassigned, [place] [facility] 1..840.114 350.1.13.10 4.2.7.2.686 [id number] [facility] 2023-10-30 19:20:00 2023-10-30 19:30:07 Outpatient ELISE YOUNG [place] [id number] [facility] 2023-10-30 19:20:00 2023-10-30 19:30:07 Urgent Care Steffi Mercadokaciealek Unknown, Attending [facility] 1..840.114 350.1.13.10 4.2.7.2.686 [id number] [facility] 2023-10-28 09:04:09 2023-10-28 09:04:09 Outpatient SFA [place] [id number] Will Eden 2023-10-10 23:28:00 2023-10-11 03:42:00 Emergency X MIS JAMES PAMALA [facility] ERT [id number] [facility] 2023-10-10 23:28:00 2023-10-11 03:42:00 Emergency Mis James [facility] 1..840.114 350.1.13.10 4.2.7.2.686 [id number] [facility] 2023-09-27 17:14:00 2023-09-27 19:30:00 Emergency X NAOMI GUY [facility] ERT [id number] [facility] 2023-09-27 17:14:00 2023-09-27 19:30:00 Emergency Naomi Guy [facility] 1..840.114 350.1.13.10 4.2.7.2.686 [id number] [facility] 2023-09-27 16:40:00 2023-09-27 16:43:26 Outpatient SANTO ADHIKARI [place] [id number] [facility] 2023-09-27 16:40:00 2023-09-27 16:43:26 Urgent Care Santo Luke Unknown, Attending [facility] 1.2.840.114 350.1.13.10 4.2.7.2.686 [id number] [facility] 2023-09-21 18:00:00 2023-09-21 18:54:13 Outpatient R AMALIA GOODE [place] [id number] [facility] 2023-09-21 18:00:00 2023-09-21 18:54:13 Urgent Care Amalia Goode Unknown, Attending [facility] 1.2.840.114 350.1.13.10 4.2.7.2.686 [id number] [facility] 2023-08-07 14:34:28 2023-08-07 14:34:28 Outpatient [facility] [id number] Will F Meek 2023-08-05 19:40:00 2023-08-05 20:01:05 Outpatient R DORINA GREENE [place] [id number] [facility] 2023-08-05 19:40:00 2023-08-05 20:01:05 Urgent Care Dorina Greene Unknown, Attending [facility] 1.2.840.114 350.1.13.10 4.2.7.2.686 [id number] [facility] 2023-07-31 12:52:03 2023-07-31 12:52:03 Outpatient SFA [id number] Will Jose Meek 2023-06-07 16:47:45 2023-06-07 16:47:45 Outpatient [facility] [id number] Will Jose Meek 2023-06-01 15:47:18 2023-06-01 15:47:18 Outpatient [facility] [id number] Will Eden 2023-05-14 17:39:23 2023-05-14 17:39:23 Outpatient [facility] [id number] Will Eden 2023-05-07 17:44:30 2023-05-07 17:44:30 Outpatient [facility] [id number] Will Eden 2023-05-06 16:27:44 2023-05-06 16:27:44 Outpatient [facility] [id number] Will Eden 2022-12-01 18:00:00 2022-12-01 18:45:00 Emergency X MANE ELOISE [facility] ERT [id number] [facility] 2022-12-01 18:00:00 2022-12-01 18:45:00 Emergency Eloise Gilliam S [facility] 1.2.840.114 350.1.13.10 4.2.7.2.686 [id number] [facility] 2022-08-06 16:20:00 2022-08-06 16:40:00 Urgent Care LunayaSanto Unknown, Attending [facility] 1.2.840.114 350.1.13.10 4.2.7.2.686 [id number] [facility] 2022-08-06 16:20:00 2022-08-06 16:20:00 Outpatient R SANTO LUKE [place] [id number] [facility] 2022-08-06 00:00:00 2022-08-06 00:00:00 Letter (Out) Santo Luke [facility] 1.2.840.114 350.1.13.10 4.2.7.2.686 [id number] [facility] 2022-06-02 15:00:00 2022-06-02 15:15:00 Marine Consultant Visit Pob, [facility] 1..840.114 350.1.13.10 4.2.7.2.686 [id number] [facility] 2022-06-02 15:00:00 2022-06-02 15:00:00 Outpatient R FADI ANG [place] [id number] [facility] 2022-06-02 00:00:00 2022-06-02 00:00:00 Orders Only Doctor Unassigned, [place] [facility] 1.840.114 350.1.13.10 4.2.7.2.686 [id number] [facility] 2022-05-24 19:36:54 2022-05-24 23:59:00 Outpatient R SANTO LUKE [place] [id number] [facility] 2022-05-24 19:36:54 2022-05-24 23:59:00 Hospital Encounter Santo Luke [facility] 1.840.114 350.1.13.10 4.2.7.2.686 [id number] [facility] 2022-05-24 19:20:00 2022-05-24 19:40:00 Urgent Care Santo Luke Unknown, Attending [facility] 1..840.114 350.1.13.10 4.2.7.2.686 [id number] [facility] 2022-01-26 16:40:00 2022-01-26 16:45:08 Outpatient R SANTO LUKE [place] [id number] [facility] 2022-01-26 16:40:00 2022-01-26 16:45:08 Urgent Care Amalia Goode [facility] 1..840.114 350.1.13.10 4.2.7.2.686 [id number] [facility] 2021-12-06 00:00:00 2021-12-06 00:00:00 Letter (Out) Kina Pineda [facility] 1.2.840.114 350.1.13.10 4.2.7.2.686 [id number] [facility] 2021-12-05 18:30:00 2021-12-05 18:44:20 Laboratory Only Only, Jefe Herrmann Test Franchesca Anton [facility] 1..840.114 350.1.13.10 4.2.7.2.686 [id number] [facility] 2021-12-05 18:30:00 2021-12-05 18:30:00 Outpatient R FRANCHESCA ANTON [place] [id number] [facility] 2021-10-22 00:00:00 2021-10-22 00:00:00 Telephone Provider, Jefe Herrmann Urgent Care [facility] 1.2.840.114 350.1.13.10 4.2.7.2.686 [id number] [facility] 2021-10-16 14:20:00 2021-10-16 14:40:00 Urgent Care Lindsay Rossi Rania [facility] 1.2.840.114 350.1.13.10 4.2.7.2.686 [id number] [facility] 2021-10-16 14:20:00 2021-10-16 14:20:00 Outpatient R LINDSAY ROSSI [place] [id number] [facility] 2021-09-29 12:00:00 2021-09-29 12:20:00 Urgent Care Franchesca Anton [facility] 1..840.114 350.1.13.10 4.2.7.2.686 [id number] [facility] 2021-09-29 12:00:00 2021-09-29 12:00:00 Outpatient R FRANCHESCA ANTON [place] [id number] [facility] 2021-09-29 00:00:00 2021-09-29 00:00:00 Orders Only Doctor Unassigned, [place] [facility] 1.840.114 350.1.13.10 4.2.7.2.686 [id number] [facility] 2021-07-22 16:01:24 2021-07-22 23:59:00 Outpatient R [facility] [id number] [facility] 2021-07-22 16:00:00 2021-07-22 23:59:00 Hospital Encounter Fadi Ang [facility] 1.840.114 350.1.13.10 4.2.7.2.686 [id number] [facility] 2021-07-22 00:00:00 2021-07-22 00:00:00 Orders Only Doctor Unassigned, [place] [facility] 1.840.114 350.1.13.10 4.2.7.2.686 [id number] [facility] 2021-07-06 00:00:00 2021-07-06 00:00:00 Telephone Fadi Ang [facility] 1.2.840.114 350.1.13.10 4.2.7.2.686 [id number] [facility] 2021-07-04 14:36:46 2021-07-04 23:59:00 Outpatient R FADI ANG [place] [id number] [facility] 2021-02-11 16:10:32 2021-02-11 16:44:37 Office Visit Sammy Whitman [facility] 1.2.840.114 350.1.13.10 4.2.7.2.686 [id number] [facility] 2021-02-11 16:00:00 2021-02-11 16:00:00 Outpatient R SAMMY WHITMAN HOWARD [place] [id number] [facility] 2021-02-06 00:00:00 2021-02-06 00:00:00 Telephone Sammy Whitman [facility] 1.2.840.114 350.1.13.10 4.2.7.2.686 [id number] [facility] 2020-12-29 15:40:00 2020-12-29 15:40:00 Outpatient R UNKNOWN, ATTENDING [place] [id number] [facility] 2020-12-29 00:00:00 2020-12-29 00:00:00 Patient Secure Msg Doctor Unassigned, [place] [facility] 1..840.114 350.1.13.10 4.2.7.2.686 [id number] [facility] 2020-12-29 00:00:00 2020-12-29 00:00:00 Letter (Out) Kina Pineda [facility] 1..840.114 350.1.13.10 4.2.7.2.686 [id number] [facility] 2020-12-27 19:00:00 2020-12-27 19:00:00 Outpatient R EVA MCCLAIN [place] [id number] [facility] 2020-12-27 00:00:00 2020-12-27 00:00:00 Letter (Out) Doctor Unassigned, [place] [facility] 1..840.114 350.1.13.10 4.2.7.2.686 [id number] [facility] 2020-12-23 09:19:17 2020-12-23 10:45:08 Office Visit Sandra Ovalles, [facility] 1..840.114 350.1.13.10 4.2.7.2.686 [id number] [facility] 2020-12-23 09:30:00 2020-12-23 09:30:00 Outpatient SAMMY COLES HOW[facility] [place] [id number] [facility] 2020-11-19 11:43:50 2020-11-19 12:16:56 Office Visit Sammy Whitman [facility] 1..840.114 350.1.13.10 4.2.7.2.686 [id number] [facility] 2020-11-19 11:20:00 2020-11-19 11:20:00 Outpatient SAMMY COLES HOW[facility] [place] [id number] [facility] 2020-10-17 09:44:47 2020-10-17 23:59:00 [facility] Sammy Jovel [facility] ..840.114 350.1.13.10 4.2.7.2.686 [id number] [facility] 2020-10-17 00:00:00 2020-10-17 00:00:00 Outpatient SAMMY COLES HOWARD [place] [id number] [facility] 2020-10-10 00:00:00 2020-10-10 00:00:00 Outpatient SAMMY COLES HOWARD [place] [id number] [facility] 2020-10-10 00:00:00 2020-10-10 00:00:00 Orders Only Doctor Unassigned, [place] [facility] 1.2840.114 350.1.13.10 4.2.7.2.686 [id number] [facility] 2020-10-02 00:00:00 2020-10-02 00:00:00 Outpatient SAMMY COLES HOW[facility] [place] [id number] [facility] 2020-09-24 08:47:33 2020-09-24 09:47:41 [facility] 1.2840.114 350.1.13.10 4.2.7.2.686 [id number] [facility] 2020-09-24 08:40:00 2020-09-24 08:40:00 Outpatient SAMMY COLES HOWARD [place] [id number] [facility] 2020-09-24 00:00:00 2020-09-24 00:00:00 Orders Only Doctor Unassigned, [place] [facility] 1.2840.114 350.1.13.10 4.2.7.2.686 [id number] [facility] 2020-08-30 20:32:00 2020-08-30 21:17:00 Emergency Jayden Palm [facility] 1..840.114 350.1.13.10 4.2.7.2.686 [id number] [facility] 2020-07-08 00:00:00 2020-07-08 00:00:00 Orders Only Doctor Unassigned, [place] [facility] 1.2840.114 350.1.13.10 4.2.7.2.686 [id number] [facility] 2020-06-26 15:32:00 2020-06-26 17:08:00 Emergency Elyse Stewart [facility] 1.2.840.114 350.1.13.10 4.2.7.2.686 [id number] [facility] 2020-06-26 00:00:00 2020-06-26 00:00:00 Orders Only Doctor Unassigned, [place] [facility] 1.2.840.114 350.1.13.10 4.2.7.2.686 [id number] [facility] 2019-01-23 00:00:00 2019-01-23 00:00:00 Letter (Out) Luann Mcclure [facility] 1.2.840.114 350.1.13.10 4.2.7.2.686 [id number] [facility] 2019-01-15 15:00:54 2019-01-15 15:21:42 Urgent Care John Rowell, [facility] 1.2.840.114 350.1.13.10 4.2.7.2.686 [id number] [facility] 2019-01-15 00:00:00 2019-01-15 00:00:00 Orders Only Doctor Unassigned, [place] [facility] 1.2.840.114 350.1.13.10 4.2.7.2.686 [id number] [facility] 2018-12-22 00:00:00 2018-12-22 00:00:00 Orders Only Doctor Unassigned, [place] [facility] 1.2.840.114 350.1.13.10 4.2.7.2.686 [id number] [facility] Results Test Description Test Time Test Comments Results Result Co mments Source Will Garcia AustinHEMOGLOBIN [id number] 00:00:00* Test Item Value Reference Range Interpretation Comme nts HEMOGLOBIN A1c (test code = 10188) 5.6 % Will EdenHEMOGLOBIN [id number] 00:00:00* Test Item Value Reference Range Interpretation Comme nts HEMOGLOBIN A1c (test code = 89099) 5.6 % Will EdenPOCT MOLECULAR [id number] 00:20:35* Test Item Value Reference Range Interpretation Comme nts POCT Molecular Strep (test c ode = 29846-5) Positive Negative A Lab Interpretation (test cod e = 27390-4) [facility] [id number] 08:07:41ORDERING PHYSICIAN: MIS JAMES ABDOMEN AND PELVIS CT WITH CONTRAST. DATE: ?10/11/2023 3:03 AM CLINICAL INDICATIONS: ?Nausea/vomiting TECHNIQUE: ?Axial computed tomographic images of the abdomen and pelviswere obtained after administration of 100 mL of Omnipaque 350intravenously. CT scan was performed according to ALARA (As Low asReasonably Achievable). COMPARISON: ?None. Abdomen findings: The lung bases are clear. The cardiac apex isunremarkable. The stomach demonstrates no abnormality. The small bowel and colon arefluid-filled which are suspected to result from enteritis. No evidence forbowel obstruction is identified. A normal appendix is present in the rightlower quadrant. The liver, spleen, pancreas, gallbladder, adrenal glands and kidneys havean unremarkable contrast enhanced appearance. A 2.2 x 2.0 cm soft tissue nodule is identified in the region of theileocolic mesentery on image 100 series 2 which is of uncertain etiology.Adenopathy cannot be excluded. No free fluid is identified in the abdomen. No acute osseous abnormality isdemonstrated. Pelvis findings: The small bowel and colon are fluid-filled. The urinarybladder is collapsed and poorly evaluated. The prostate gland is withinnormal limits of size. No adenopathy or free fluid identified in thepelvis. No acute osseous abnormality is demonstrated.[facility] [id number] 06:25:32ORDERING PHYSICIAN: MIS JAMES LIMITED RIGHT UPPER QUADRANT ABDOMEN ULTRASOUND. DATE: 41:24 AM CLINICAL INDICATIONS: ?Right upper quadrant abdominal pain. TECHNIQUE: ?Multiple transverseand longitudinal sonographic images of theabdomen were obtained, focusing on the right upper quadrant. Permanentimages were recorded. COMPARISON: None. FINDINGS: ?The liver has a normal contour and echotexture withoutintrahepatic mass, biliary ductal dilation or contour nodularity. ? The gallbladder demonstrates no evidence for cholelithiasis or acutecholecystitis. The proximal extrahepatic common bile duct measures 5 mm indiameter. ?The gallbladder wall measures 2 mm in diameter. No sonographicMurphy's sign was obtained. The pancreas and abdominal aorta are not well visualized on this study dueto bowel gas.[facility] COMP. METABOLIC PANEL (55672)2023-10-11 05:55:34* Test Item Value Reference Range Interpretation Comme nts NA (test code = 6457110490) 146 mmol/L 135-145 H K (test code = 2279907690) 3.8 mmol/L 3.5-5.0 CL (test code = 7817564463) 109 mmol/L 98-108 H CO2 TOTAL (test code = 2519398271) 22 mmol/L 23-31 L AGAP (test code = 5704346622) 15 2-16 BUN (test code = 2558361747) 13 mg/dL 7-23 GLUCOSE (test code = 6424962671) 108 mg/dL 70-110 CREATININE (test code = 2160-0) 0.70 mg/dL 0.60-1.25 TOTAL BILI (test code = 5477720057) 1.2 mg/dL 0.1-1.1 H CALCIUM (test code = 4671594010) 9.0 mg/dL 8.6-10.6 T PROTEIN (test code = 6496552629) 8.6 g/dL 6.3-8.2 H ALBUMIN (test code = 0639936557) 4.7 g/dL 3.5-5.0 ALK PHOS (test code = 4206257797) 366 U/L 34-122 H ALTv (test code = 1742-6) 393 U/L 5-50 H AST(SGOT) (test code = 4141396143) 203 U/L 13-40 H eGFR (test code = 36064-7) 134.4 mL/min/1.73m2 CKD-EPI eGFR (2020). Assuming creatinine has been stable day-to-day for at least three months, the eGFR indicates Category G1 (>= 90 mL/min/1.73 m2) Lab Interpretation (test code = 30740-4) [facility] 05:54:48* Test Item Value Reference Range Interpretation Comme nts LIPASE (test code = 4360367530) 65 U/L 0-220 Lab Interpretation (test cod e = 36804-3) Normal [facility] WITH [id number] 04:56:50* Test Item Value Reference Range Interpretation Comme nts WBC (test code = 6690-2) 7.05 4.20-10.70 RBC (test code = 789-8) 5.51 4.26-5.52 HGB (test code = 718-7) 15.9 g/dL 12.2-16.4 HCT (test code = 4544-3) 49.0 % 38.4-49.3 MCV (test code = 787-2) 88.9 fL 81.7-95.6 MCH (test code = 785-6) 28.9 pg 26.1-32.7 MCHC (test code = 786-4) 32.4 g/dL 31.2-35.0 RDW-SD (test code = 69503-1) 46.0 fL 38.5-51.6 RDW-CV (test code = 788-0) 14.3 % 12.1-15.4 PLT (test code = 777-3) 352 150-328 H MPV (test code = 69561-6) 9.7 fL 9.8-13.0 L NRBC/100 WBC (test code = 2225750155) 0.0 0.0-10.0 NRBC x10^3 (test code = 8262108422) See_Comment [Automated messa ge] The system which generated this result transmitted reference range: 10*3/?L. The reference range was not used to interpret this result as normal/abnormal. GRAN MAT (NEUT) % (test code = 770-8) 68.4 % IMM GRAN % (test code = 9510341729) 0.30 % LYMPH % (test code = 736-9) 20.1 % MONO % (test code = 5905-5) 9.1 % EOS % (test code = 713-8) 1.7 % BASO % (test code = 706-2) 0.4 % GRAN MAT x10^3(ANC) (test code = 9442209974) 4.82 10*3/uL 1.99-6.95 IMM GRAN x10^3 (test code = 0197406457) 0.00-0.06 LYMPH x10^3 (test code = 731-0) 1.42 10*3/uL 1.09-3.23 MONO x10^3 (test code = 742-7) 0.64 10*3/uL 0.36-1.02 EOS x10^3 (test code = 711-2) 0.12 10*3/uL 0.06-0.53 BASO x10^3 (test code = 704-7) 0.03 10*3/uL 0.01-0.09 Lab Interpretation (test code = 26512-9) [facility]normal [facility] TEST[facility]ULAR [id number] 23:51:30 Procedure: Testicular sonography. ORDERING PHYSICIAN: JIM GUY Indications: Testicular pain. Comparison: None Technique: Testicular sonography is performed with multiple digital imagesrecorded and reviewed. Findings: The testes are normal in contour and echogenicity. Color and Doppler signalis seen in both testes. There is no testicular mass. Trace bilateralhydroceles are present. There is no varicocele. There is no epididymalenlargement or hyperemia. [facility] W Specific [id number] 23:28:00* Test Item Value Reference Range Interpretation Comme nts POCT U SP GRAV (test code = 3255) 1.015 mg/dl 1.005-1.025 POCT PH U (test code = 3254) 5 mg/dl 5-8 POCT U LEUK EST (test code = 3263) neg Negative - Negative POCT U NIT (test code = 3262) neg Negative - Negative POCT U PROT (test code = 3259) neg Negative - Negative POCT U GLU (test code = 3256) normal Negative - Negative POCT U KETONE (test code = 3258) neg Negative - Negative POCT U UROBILI (test code = 3260) normal 0.2-1 POCT U BILI (test code = 3261) neg Negative - Negative POCT U BLD (test code = 3257) neg Negative - Negative POCT U COLOR (test code = 3266) dark yellow POCT U APPEAR (test code = 3267) clear REX (test code = REX) accurate developme nt and interpretation of all internal controls Lab Interpretation (test code = 39630-3) Normal [facility] Urinalysis W Specific [id number] 23:28:00* Test Item Value Reference Range Interpretation Comme nts POCT U SP GRAV (test code = 3255) 1.015 mg/dl 1.005-1.025 POCT PH U (test code = 3254) 5 mg/dl 5-8 POCT U LEUK EST (test code = 3263) neg Negative - Negative POCT U NIT (test code = 3262) neg Negative - Negative POCT U PROT (test code = 3259) neg Negative - Negative POCT U GLU (test code = 3256) normal Negative - Negative POCT U KETONE (test code = 3258) neg Negative - Negative POCT U UROBILI (test code = 3260) normal 0.2-1 POCT U BILI (test code = 3261) neg Negative - Negative POCT U BLD (test code = 3257) neg Negative - Negative POCT U COLOR (test code = 3266) dark yellow POCT U APPEAR (test code = 3267) clear REX (test code = REX) accurate developme nt and interpretation of all internal controls Lab Interpretation (test code = 29910-0) Normal [facility] SARS-COV-2 ANTIGEN (BINAX NOW)2023-08-06 00:54:00* Test Item Value Reference Range Interpretation Comme nts POCT SARS-COV-2 ANTIGEN (binh t code = 66014-2) Not Detected Not Detected On board controls acceptable with C Line (test code = 3574) Yes [facility] SARS-COV-2 ANTIGEN (BINAX NOW)2023-08-06 00:54:00* Test Item Value Reference Range Interpretation Comme nts POCT SARS-COV-2 ANTIGEN (binh t code = 95405-7) Not Detected Not Detected On board controls acceptable with C Line (test code = 3574) Yes [facility] MOLECULAR [id number] 21:50:28* Test Item Value Reference Range Interpretation Comme nts POCT Molecular FluA (test co de = 78214-0) Negative Negative POCT Molecular FluB (test co de = 46286-2) Negative Negative Lab Interpretation (test cod e = 06499-7) Normal [facility] MOLECULAR [id number] 21:44:49* Test Item Value Reference Range Interpretation Comme nts POCT Molecular Strep (test c ode = 50519-7) Negative Negative Lab Interpretation (test cod e = 55115-9) Normal [facility] MOLECULAR [id number] 19:33:19* Test Item Value Reference Range Interpretation Comme nts POCT Molecular Strep (test c ode = 60365-0) Negative Negative Lab Interpretation (test cod e = 44938-9) Normal [facility] MOLECULAR [id number] 17:19:01* Test Item Value Reference Range Interpretation Comme nts POCT Molecular Strep (test c ode = 84560-2) Positive Negative A Lab Interpretation (test cod e = 83720-0) [facility]normal [facility] Notes Date/Time Note Provider Source 2025-01-18 22:05:00 Pt given printed and verbal discharge instructions regarding anxiety & depression. Encouraged hydration, [place] packet given to patient, suicide hotline number stamped on all discharge papers. Pt verbalized understanding of instructions, pt awake alert oriented, resp reg unlabored, skin w/d, color appropriate for race, moves all ext well,pt encouraged to follow up with pcp. Advised to seek medical attention for new/prolonged/worsening of symptoms, Symptoms improved Awake, alert oriented, resp reg unlabored, skin w/d, pt leaving amb with steady gait, in no apparent distress. [facility] 2025-01-18 22:00:00 Pt continues to deny suicidal or homicidal ideations. Pt is calm cooperative with staff. Pt stated he did have a place to stay tonight. [facility] 2025-01-18 21:40:00 Pt arrived in handcuffs with Jose HESS after calling 911 and yelling on phone. PD stated he was trying to get back into his home. PD stated the patient was having a mental health crisis. Pt cooperative with staff. Pt denies suicidal or homicidal ideations when asked by myself and by physician. Porsche Banerjee RN [facility]2025-02-24 06:49:00 Pt given printed and verbal discharge instructions regarding sore throat ad acute viral syndrome, encouraged hydration, Prescriptions provided to preferred pharmacy Pt verbalized understanding of instructions, pt awake alert oriented, resp reg unlabored, skin w/d, color appropriate for race, moves all ext well,pt encouraged to follow up with pcp Advised to seek medical attention for new/prolonged/worsening of symptoms No adverse reaction to meds given in ER noted upon discharge Awake, alert oriented, resp reg unlabored, skin w/d, pt leaving amb with steady gait, in no apparent distress, T MANAGER [id number] 05:48:19 Patient arrived ambulatory to ED c/o sore throat and diarrhea that started a couple of days ago. States trying throat sprays with no relief. [facility]kyoox1274-63-08 00:00:00 [facility]2024-07-18 00:00:00 [facility]2024-06-22 19:20:00 Addended by: JAIMEE FRANCO on: 10/30/2023 08:09 PM Modules accepted: Orders [place] 73792-06-03 03:41:37 Pt given printed and verbal discharge instructions regarding bilious vomiting with nausea, transaminitis, and obesity Prescriptions provided Pt verbalized understanding of instructions, pt awake alert oriented, resp reg unlabored, skin w/d, color appropriate for race, moves all ext well,pt encouraged to follow up with pcp Advised to seek medical attention for new/prolonged/worsening of symptoms No adverse reaction to meds given in ER noted upon discharge PIV d'cd, dressing to site, catheter in tact. Awake, alert oriented, resp reg unlabored, skin w/d, pt leaving amb with steady gait, in no apparent distress [place] [address]50-06-02 23:24:07 Pt arrived with c/o N/V/D and epigastric pain since 9:30PM. Vomit is yellow. [facility] Cristina Lozano [place] [address]-06-02 23:09:00 The patient was signed out pending results of the CT of his abdomen pelvis as well as reevaluation. He is doing well here in the ER. His nausea and vomiting has resolved. He was given a p.o. challenge here in the ER and able to tolerate by mouth without difficulty. The CT of his abdomen pelvis shows enteritis but no other acute intra-abdominal pathology. His laboratory studies show elevation of his LFTs. He will need to follow-up with his PCP in 1 to 2 weeks for repeat LFTs to evaluate for resolution of the elevation or not. Will discharge patient home in stable condition with PCP follow-up. Recommend the brat diet as well as Zofran as needed. Recent Results (from the past 24 hour(s)) URINALYSIS Collection Time: 10/10/23 11:40 PM Result Value Ref Range APPEARANCE Hazy (A) Clear COLOR Faye (A) Yellow PH 5.0 4.8 - 8.0 SP GRAVITY 1.027 1.003 - 1.030 GLU U QUAL Normal Normal BLOOD Negative Negative KETONES 20 mg/dL (A) Negative PROTEIN 30 mg/dL (A) Negative UROBILIN 2.0 mg/dL (A) Normal BILIRUBIN Negative Negative NITRITE Negative Negative LEUK XUAN Negative Negative RBC/HPF 1 0 - 3 HPF WBC/HPF 2 0 - 5 HPF BACTERIA Few (A) Negative MUCOUS Marked (A) Negative LPF HYAL CAST 3 (H) <=2 LPF CBC WITH DIFF Collection Time: 10/10/23 11:40 PM Result Value Ref Range WBC 7.05 4.20 - 10.70 10*3/?L RBC 5.51 4.26 - 5.52 10*6/?L HGB 15.9 12.2 - 16.4 g/dL HCT 49.0 38.4 - 49.3 % MCV 88.9 81.7 - 95.6 fL MCH 28.9 26.1 - 32.7 pg MCHC 32.4 31.2 - 35.0 g/dL RDW-SD 46.0 38.5 - 51.6 fL RDW-CV 14.3 12.1 - 15.4 % PLT 352 (H) 150 - 328 10*3/?L MPV 9.7 (L) 9.8 - 13.0 fL NRBC/100 WBC 0.0 0.0 - 10.0 /100 WBCs NRBC x103<0.01 10*3/?L GRAN MAT (NEUT) % 68.4 % IMM GRAN % 0.30 % LYMPH % 20.1 % MONO % 9.1 % EOS % 1.7 % BASO % 0.4 % GRAN MAT x103(ANC) 4.82 1.99 - 6.95 10*3/uL IMM GRAN x103<0.03 0.00 - 0.06 10*3/uL LYMPH x1031.42 1.09 - 3.23 10*3/uL MONO x1030.64 0.36 - 1.02 10*3/uL EOS x1030.12 0.06 - 0.53 10*3/uL BASO x1030.03 0.01 - 0.09 10*3/uL COMP. METABOLIC PANEL (77676) Collection Time: 10/11/23 12:07 AM Result Value Ref Range NA 146 (H) 135 - 145 mmol/L K 3.8 3.5 - 5.0 mmol/L CL 109 (H) 98 - 108 mmol/L CO2 TOTAL 22 (L) 23 - 31 mmol/L AGAP 15 2 - 16 BUN 13 7 - 23 mg/dL GLUCOSE 108 70 - 110 mg/dL CREATININE 0.70 0.60 - 1.25 mg/dL TOTAL BILI 1.2 (H) 0.1 - 1.1 mg/dL CALCIUM 9.0 8.6 - 10.6 mg/dL T PROTEIN 8.6 (H) 6.3 - 8.2 g/dL ALBUMIN 4.7 3.5 - 5.0 g/dL ALK PHOS 366 (H) 34 - 122 U/L ALTv 393 (H) 5 - 50 U/L AST(SGOT) 203 (H) 13 - 40 U/L eGFR 134.4 mL/min/1.73m2 LIPASE Collection Time: 10/11/23 12:07 AM Result Value Ref Range LIPASE 65 0 - 220 U/L ACTIVATED PARTIAL THRMPLAS RAISSA Collection Time: 10/11/23 2:36 AM Result Value Ref Range APTT Patient 35 26 - 36 Seconds PROTHROMBIN TIME / INR Collection Time: 10/11/23 2:36 AM Result Value Ref Range PROTIME PATIENT 12.2 10.1 - 12.6 Seconds INR 1.0 Hospital Encounter on 10/10/23 US GALL BLADDER Narrative ORDERING PHYSICIAN: MIS JAMES LIMITED RIGHT UPPER QUADRANT ABDOMEN ULTRASOUND. DATE: 10/11/2023 1:24 AM CLINICAL INDICATIONS: Right upper quadrant abdominal pain. TECHNIQUE: Multiple transverse and longitudinal sonographic images of the abdomen were obtained, focusing on the right upper quadrant. Permanent images were recorded. COMPARISON: None. FINDINGS: The liver has a normal contour and echotexture without intrahepatic mass, biliary ductal dilation or contour nodularity. The gallbladder demonstrates no evidence for cholelithiasis or acute cholecystitis. The proximal extrahepatic common bile duct measures 5 mm in diameter. The gallbladder wall measures 2 mm in diameter. No sonographic Westfall's sign was obtained. The pancreas and abdominal aorta are not well visualized on this study due to bowel gas. Impression 1. No sonographic evidence for cholelithiasis or acute cholecystitis is visualized. 2. The pancreas and abdominal aorta are poorly evaluated due to bowel gas. RL: [id number] ABDOMEN PELVIS W CONTRAST Narrative ORDERING PHYSICIAN: MIS JAMES ABDOMEN AND PELVIS CT WITH CONTRAST. DATE: 10/11/2023 3:03 AM CLINICAL INDICATIONS: Nausea/vomiting TECHNIQUE: Axial computed tomographic images of the abdomen and pelvis were obtained after administration of 100 mL of Omnipaque [address] scan was performed according to ALARA (As Low as Reasonably Achievable). COMPARISON: None. Abdomen findings: The lung bases are clear. The cardiac apex is unremarkable. The stomach demonstrates no abnormality. The small bowel and colon are fluid-filled which are suspected to result from enteritis. No evidence for bowel obstruction is identified. A normal appendix is present in the right lower quadrant. The liver, spleen, pancreas, gallbladder, adrenal glands and kidneys have an unremarkable contrast enhanced appearance. A 2.2 x 2.0 cm soft tissue nodule is identified in the region of the ileocolic mesentery on image 100 series 2 which is of uncertain etiology. Adenopathy cannot be excluded. No free fluid is identified in the abdomen. No acute osseous abnormality is demonstrated. Pelvis findings: The small bowel and colon are fluid-filled. The urinary bladder is collapsed and poorly evaluated. The prostate gland is within normal limits of size. No adenopathy or free fluid identified in the pelvis. No acute osseous abnormality is demonstrated. Impression 1. The small bowel and colon are fluid-filled suggesting enteritis. 2. A 2.2 x 2.0 cm soft tissue nodule in the ileocolic mesentery is of uncertain etiology. This may result from reactive adenopathy or metastatic adenopathy. RL: [id number] Sheba Olmstead DO 10/11/23 [facility] - [id number] 19:29:18 Awake, alert oriented X4, respiratory even and unlabored,skin w/d color appropriate for race, moves all ext well, pt encouraged to follow up with pcp and or return as needed Pt given printed and verbal discharge instructions regarding Pain in both testicles , patient verbralized understanding and signature obtained, patient denies any other concerns. Advised to seek medical attention for new/prolonged/worsening of symptoms, No adverse reaction to meds given in ER noted upon discharge Pt ambulated to the [facility] with steady gait Marielena Maravilla [facility] CenterDroqkx3070-85-14 17:50:15 Patient to US. George Egan [place] [id number] 17:14:57 Pt given urine cup and placed back into [facility] with instructions for collecting urine sample. [place] [id number] 17:08:45 Pt arrived ambulatory without assist. Pt states "I am here to schedule an MRI appointment because I am testicle pain in both. I went to [place] [facility] and they sent me here to get the MRI." Trnea Paredes [place] [address]-03-28 19:40:00 Addended by: AMALIA MOJICA LVN on: 08/05/2023 08:16 PM Modules accepted: Orders [place] [id number] 18:43:44 PT D/C home. GCS15, VS stable, no ataxia noted. Given no prescriptions and D/C paperwork. Pt ambulatory with mother at time of discharge. Pt educated on anxiety, med usage, importance of keeping psych appt in two days, s/s worsening condition. Pt verbalized understanding. Work/school note was not given. Lise Johnson [facility] CenterKemxoy8051-40-13 17:56:20 Patient here for anxiety, psychosis. Patient has a history of anxiety, worse today than normal. Family states that the patient thinks he is in hell, he is on fire, he is pain. This has been ongoing since October 2018. Panchito Morgan [facility]
--- NOTE | 2025-02-20 21:08 | EDPHYS ---
Physician Documentation [facility] Name: Travis Aguirre Age: 25 yrs Sex: Male : 2000 Arrival Date: 02/20/2025 Time: 20:25 Bed 25 Private MD: ED Physician Mohamud Rubio HPI: 02/20 21:24 This 25 yrs old Black Male presents to ER via Ambulatory with complaints of Skin sb4 Problem, Itching. 21:24 Patient reports dry skin and itching over the past few days. He has put "oil "on his sb4 skin but nothing else. States that he now has some small spots where the skin has broken from itching. Also reports itching in his ears. Denies any cough, congestion, allergy symptoms, new medications. Historical: - Allergies: 20:43 No Known Allergies; dd2 - PMHx: 20:43 Anxiety; Schizophrenia; dd2 - PSHx: 20:43 None; dd2 - Immunization history:: Adult Immunizations unknown. - Infectious Disease History:: Denies. - Social history:: Smoking status: Patient denies any tobacco usage or history of. ROS: 21:24 Constitutional: Negative for fever, chills, and weight loss, sb4 21:24 Skin: Positive for per HPI, 21:24 All other systems are negative, Exam: 21:24 Head/Face: Normocephalic, atraumatic. Eyes: Extra-ocular motions intact. Periorbital sb4 areas with no swelling, redness, or edema. ENT: Mucous membranes moist. Respiratory: No increased work of breathing, no retractions or nasal flaring. 21:24 Constitutional: The patient appears alert, awake, anxious, 21:24 ENT: External ear(s): are unremarkable, Ear canal(s): are normal, TM's: are normal, 21:24 Skin: Appearance: Moisture: dry, cellulitis, is not appreciated, Vital Signs: 20:42 BP 126 / 91; Pulse 95; Resp 16; Temp 98.2; Pulse Ox 100% on R/A; Weight 108.86 kg; dd2 20:53 BP 125 / 82; Pulse 89; Resp 17; Pulse Ox 100% on R/A; Pain 0/10; rg5 20:53 Pain Scale: Adult rg5 MDM: 20:30 Medical Screening Exam initiated sb4 21:24 Data reviewed: vital signs, nurses notes, and as a result, I will discharge patient. sb4 Historians other than the Patient: Parent: mother. Counseling: I had a detailed discussion with the patient and/or guardian regarding the historical points, exam findings, and any diagnostic results supporting the discharge/admit diagnosis, the need for outpatient follow up, for definitive care, to return to the emergency department if symptoms worsen or persist or if there are any questions or concerns that arise at home. 02/20 21:06 Order name: Misc. Order: lotion; Complete Time: 21:34 sb4 Administered Medications: 21:34 Drug: diphenhydrAMINE PO 25 mg PO once Route: PO; rg5 21:35 Follow up: Response: No adverse reaction rg5 Disposition: 21:42 Co-signature as Attending Physician, Mohamud Rubio DO I reviewed the patient's care tt7 provided by the Advanced Practice Provider and agree with the diagnosis and treatment plan. Disposition Summary: 02/20/25 21:07 Discharge Ordered Notes: Location: Home sb4 Problem: new sb4 Symptoms: have improved sb4 Condition: Stable sb4 Diagnosis - Xerosis cutis sb4 - Other pruritus sb4 Followup: sb4 - With: Private Physician - When: 1 week - Reason: Recheck today's complaints, Re-evaluation by your physician Discharge Instructions: - Discharge Summary Sheet sb4 - Pruritus sb4 Forms: - Patient Portal Instructions sb4 - Leadership Thank You Letter sb4 Prescriptions: - Hydroxyzine HCl 25 mg Oral Tablet - take 1 tablet ORAL route every 6 hours As needed; 30 tablet; Refills: 0, sb4 Product Selection Permitted - Hydrocortisone 0.5 % Topical Cream - apply 1 application TOPICAL route every 12 hours As needed; 30 gram; Refills: sb4 0, Product Selection Permitted Signatures: Sho Aguirre PA-C PA-C sb4 Jimbo Martin RN RN rg5 ELISA SALEH RN RN dd2 Mohamud Rubio DO DO tt7
--- NOTE | 2025-02-20 21:08 | ER ---
Nurse's Notes [facility] Name: Travis Aguirre Age: 25 yrs Sex: Male : 2000 Arrival Date: 02/20/2025 Time: 20:25 Bed 25 Private MD: Diagnosis: Xerosis cutis;Other pruritus Presentation: 02/20 20:42 Chief complaint: Patient states: ITCHING, DRY SKIN RIAZ ARMS, FACE, EARS STARTING TODAY. dd2 Coronavirus screen: At this time, the client does not indicate any symptoms associated with coronavirus-19. Ebola Screen: No symptoms or risks identified at this time. Onset: The symptoms/episode began/occurred today. Anaphylaxis evaluation, no signs or symptoms of anaphylaxis were noted. Initial Sepsis Screen: Does the patient meet any 2 criteria? No. Patient's initial sepsis screen is negative. Does the patient have a suspected source of infection? No. Patient's initial sepsis screen is negative. Risk Assessment: Do you want to hurt yourself or someone else? Patient reports no desire to harm self or others. Onset of symptoms was February 20, 2025. 20:42 Method Of Arrival: Ambulatory dd2 20:42 Acuity: GEOVANNA 4 dd2 Triage Assessment: 20:43 General: Appears in no apparent distress. Behavior is calm, cooperative, appropriate dd2 for age. Pain: Denies pain. Derm: Skin is dry, Skin is normal, Reports itching. Historical: - Allergies: 20:43 No Known Allergies; dd2 - PMHx: 20:43 Anxiety; Schizophrenia; dd2 - PSHx: 20:43 None; dd2 - Immunization history:: Adult Immunizations unknown. - Infectious Disease History:: Denies. - Social history:: Smoking status: Patient denies any tobacco usage or history of. Screenin:54 [facility] ED Fall Risk Assessment (Adult) History of falling in the last 3 months, rg5 including since admission No falls in past 3 months (0 pts) Confusion or Disorientation No (0 pts) Intoxicated or Sedated No (0 pts) Impaired Gait No (0 pts) Mobility Assist Device Used No (0 pt) Altered Elimination No (0 pt) Score/Fall Risk Level 0 - 2 = Low Risk Oriented to surroundings, Maintained a safe environment. Abuse screen: Denies threats or abuse. Nutritional screening: No deficits noted. Tuberculosis screening: No symptoms or risk factors identified. Assessment: 20:54 General: Appears in no apparent distress. comfortable. Pain: Denies pain. Neuro: Level rg5 of Consciousness is awake, alert, obeys commands, Oriented to person, place, time, situation. Cardiovascular: Patient's skin is warm and dry. Respiratory: Airway is patent Respiratory effort is even, unlabored, Breath sounds are clear. GI: Abdomen is round non-distended. : No signs and/or symptoms were reported regarding the genitourinary system. EENT: No signs and/or symptoms were reported regarding the EENT system. Derm: Reports itching. Musculoskeletal: Circulation, motion, and sensation intact. Range of motion: intact in all extremities. Vital Signs: 20:42 BP 126 / 91; Pulse 95; Resp 16; Temp 98.2; Pulse Ox 100% on R/A; Weight 108.86 kg; dd2 20:53 BP 125 / 82; Pulse 89; Resp 17; Pulse Ox 100% on R/A; Pain 0/10; rg5 20:53 Pain Scale: Adult rg5 ED Course: 20:29 Patient arrived in ED. mr 20:30 Sho Aguirre PA-C is PHCP. sb4 20:30 Mohamud Rubio DO is Attending Physician. sb4 20:43 Triage completed. dd2 20:43 Arm band placed on right wrist. dd2 20:45 Jimbo Martin, VANESSA is Primary Nurse. rg5 20:54 Patient has correct armband on for positive identification. Bed in low position. Call rg5 light in reach. Side rails up X 1. Adult w/ patient. Door closed. Noise minimized. 20:54 No provider procedures requiring assistance completed. rg5 21:34 Patient did not have IV access during this emergency room visit. rg5 21:35 Provided Education on: post er care. rg5 Administered Medications: 21:34 Drug: diphenhydrAMINE PO 25 mg PO once Route: PO; rg5 21:35 Follow up: Response: No adverse reaction rg5 Medication: 20:54 VIS not applicable for this client. rg5 Outcome: 21:07 Discharge ordered by . sb4 21:34 Discharged to home ambulatory, rg5 21:34 Condition: stable 21:34 Discharge instructions given to patient, family, 21:35 Patient left the ED. rg5 Signatures: Megan Tariq, Reg Reg mr Sho Aguirre, JENAE EMANUEL sb4 Jimbo Martin RN RN rg5 ELISA SALEH RN RN dd2 Corrections: (The following items were deleted from the chart) 21:02 20:54 Derm: Reports itching, rgIgnacia rg5
[2025-02-20] MEDS ORDERED: DIPHENHYDRAMINE 25 MG TAB/CAP ONE (21:23)
[2025-02-21 04:49] VITALS: TEMP 98.2; O2SAT 100
[2025-02-21 04:50] VITALS: BP 125/82
== END 2025-02-20 21:35 | disposition home or self-care (01) ==
LOC: ER 20:25
DX: L85.3 Xerosis cutis (principal); L29.9 Pruritus, unspecified
CPT/HCPCS: 99283